=== PATIENT | female | born 1990 | race African-American/Black ===

== ENCOUNTER 2017-01-02 02:52 | Emergency (ER) | payer MEDICARE, BC, OTHER ==
[~2017-01-02] VITALS: Ht 165.1 cm; Wt 82.0 kg
[~2017-01-02 02:52] MED LIST: 1-ME1LIQ PO; ALPR.25 PO; CIPR500T4 PO; DICY10CA13 PO; FAMO20 PO; PERC10TA27 PO; PREG100 PO; PROC10TA4 PO; PROT40TA PO; TACR1CAP PO; WARF5TAB PO
[2017-01-02 02:54] VITALS: BP 170/120; PULSE 124; RESP 16; TEMP 98.4; O2SAT 100
[2017-01-02] MEDS ORDERED: TACR5CAP PO (07:34)
[2017-01-02] MEDS ORDERED: METHYL (07:34)
[2017-01-02] MEDS ORDERED: PERC10TA27 PO (07:34)
[2017-01-02] MEDS ORDERED: TACR1CAP PO (07:34)
[2017-01-02] MEDS ORDERED: LYRI100C PO (07:34)
[2017-01-02] MEDS ORDERED: WARF-22 PO (07:34)
--- NOTE | 2017-01-02 14:42 | EKG ---
Date Performed: 01/02/2017 Time Performed: 03:13:05 PTAGE: 26 years EKG: SINUS TACHYCARDIA NONSPECIFIC T-WAVE ABNORMALITY Clinical correlation is recommended ABNORM AL RHYTHM ECG NO PREVIOUS TRACING DOCTOR: Boyd Hill Interpretating Date/Time 01/02/2017 14:41:53
== END 2017-01-02 03:23 | disposition left against medical advice (07) ==
LOC: NED 02:52
DX: R68.89 Other general symptoms and signs (principal)
CPT/HCPCS: 93005; 99281

== ENCOUNTER 2017-01-02 06:21 | Emergency (ER) | payer BC, MEDICARE, OTHER ==
[~2017-01-02] VITALS: Ht 165.1 cm; Wt 84.0 kg
[2017-01-02 06:23] VITALS: BP 162/110; PULSE 162; RESP 16; TEMP 98.2; O2SAT 100
[2017-01-02 06:41] VITALS: BP 180/117; PULSE 138; RESP 22; O2SAT 100
[2017-01-02] MEDS ORDERED: PROCHLORPERAZINE INJ 10 MG/2 ML VIAL IV PUSH ONE (07:30)
[2017-01-02] MEDS ORDERED: SODIUM CHLORIDE 0.9% FLUSH 10 ML FLUSH IVF PRN (07:30)
[2017-01-02] MEDS ORDERED: diphenhydrAMINE HCL 50 MG/ML VIAL IV PUSH ONE (07:30)
[2017-01-02] MEDS ORDERED: SODIUM CHLORID 0.9% 500 ML INJ 500 ML IV ONE (07:30)
[2017-01-02] MEDS ORDERED: WARF-22 PO (07:34)
[2017-01-02] MEDS ORDERED: METHYL (07:34)
[2017-01-02] MEDS ORDERED: TACR1CAP PO (07:34)
[2017-01-02] MEDS ORDERED: PERC10TA27 PO (07:34)
[2017-01-02] MEDS ORDERED: LYRI100C PO (07:34)
[2017-01-02] MEDS ORDERED: TACR5CAP PO (07:34)
[2017-01-02 07:36] VITALS: O2SAT 97
--- NOTE | 2017-01-02 07:51 | RADRPT ---
EXAM DATE/TIME: 01/02/2017 07:38 [facility] COMPARISON: No previous studies available for comparison. INDICATIONS : Chest pain. MEDICAL HISTORY : None. SURGICAL HISTORY : Renal transplant. ENCOUNTER: Initial ACUITY: 1 day PAIN SCORE: 3/10 LOCATION: Bilateral chest FINDINGS: PA and lateral views of the chest demonstrate the lungs to be symmetrically aerated without evidence of mass, infiltrate or effusion. The cardiomediastinal contours are unremarkable. There is metallic density seen over the lower cervical spine which may be a artificial disc. There is also a vascular s tent seen in the left axillary region. CONCLUSION: No acute disease. Vinny Bush MD on January 02, 2017 at 7:48 Board Certified Radiologist. This report was verified electronically.
[2017-01-02 08:01] VITALS: BP 147/97; PULSE 120; RESP 18; O2SAT 97
--- NOTE | 2017-01-02 08:12 | PD ---
HPI Chief Complaint: Cardiac Complaint Time Seen by Provider: 07:08 Travel History International Travel<30 days: No Contact w/Intl Traveler<30days: No Traveled to known affect area: No History of Present Illness HPI Patient is a 26-year-old female with history of renal transplant, who comes in with multiple medical complaints. She says she has not been able to sleep in 3 days. She says she feels numbness to the left side of her head just lateral to her eye. She says she is not having a headache. She says she sees "O's" in front of her eyes. She also says she has some chest tightness and shortness of breath and says she feels her heart beating very fast. PFSH Past Medical History Anemia: Yes Asthma: Yes Blood Disorders: No Anxiety: Yes Depression: No Heart Rhythm Problems: Yes Cancer: No Cardiovascular Problems: Yes High Cholesterol: No Chemotherapy: No Chest Pain: Yes (ON AND OFF FOR A COUPLE MONTHS) Congestive Heart Failure: No COPD: No Diabetes: No Endocrine: Yes (GLOMERLONEPHRITIS) Gastrointestinal Disorders: Yes (IBS) Hypertension: Yes Immune Disorder: No Implanted Vascular Access Dvce: Yes Musculoskeletal: No Neurologic: No Psychiatric: Yes Reproductive: No Respiratory: Yes Radiation Therapy: No Sleep Apnea: No Thyroid Disease: Yes Tetanus Vaccination: Unknown ?: Not LMP: 12/30/16 Ovarian Cysts: Yes Past Surgical History Abdominal Surgery: Yes (PERITONEAL CATHETER PLACEMENT/REMOVAL) Body Medical Devices: USED TO HAVE A FISTULA Endocrine Surgery: Yes (KIDNEY TRANSPLANT X 2/PARATHYROIDECTOMY) Tonsillectomy: Yes Other Surgery: Yes (LYMPH NODE/LT ARM SHUNT REMOVAL) Social History Alcohol Use: No Tobacco Use: No Substance Use: No Allergies-Medications (Allergen,Severity, Reaction): Coded Allergies: Cozaar (Verified Allergy, Severe, Swelling, 01/02/17) Vancomycin (Verified Allergy, Severe, Anaphylaxis, 01/02/17) Vasotec (Verified Allergy, Severe, Swelling, 01/02/17) Reported Meds & Prescriptions Reported Meds & Active Scripts Active Reported Warfarin 10 Mg Tab 10 Mg PO DAILY Tacrolimus 1 Mg Cap 4 Mg PO AM Tacrolimus 5 Mg Cap 5 Mg PO HS Lyrica (Pregabalin) 100 Mg Cap 100 Mg PO BID Percocet (Oxycodone-Acetaminophen) 10-325 mg Tab 1 Tab PO Q4H PRN [Methyl 2] Review of Systems Except as stated in HPI: all other systems reviewed are Neg General / Constitutional: No: Fever, Chills Eyes: Positive: Blurred Vision Cardiovascular: Positive: Chest Pain or Discomfort, Tachycardia Respiratory: Positive: Shortness of Breath Gastrointestinal: No: Nausea, Vomiting Musculoskeletal: No: Myalgias, Edema Skin: No Rash, No Change in Pigmentation Neurologic: No: Weakness Psychiatric: Positive: Anxiety Physical Exam Narrative GENERAL: Awake and alert, in no acute distress. SKIN: Focused skin assessment warm/dry. HEAD: Atraumatic. Normocephalic. EYES: Pupils equal and round. No scleral icterus. Extraocular movements intact. Horizontal nystagmus seen. ENT: Mucous membranes pink and moist. NECK: Trachea midline. No JVD. CARDIOVASCULAR: Tachycardia. No murmur appreciated. RESPIRATORY: No accessory muscle use. Clear to auscultation. Breath sounds equal bilaterally. GASTROINTESTINAL: Abdomen soft, non-tender, nondistended. MUSCULOSKELETAL: No obvious deformities. No clubbing. No cyanosis. No edema. NEUROLOGICAL: Awake and alert. No obvious cranial nerve deficits. Motor grossly within normal limits. Normal speech. Area of numbness just lateral to the left eye, no other neurologic abnormalities. PSYCHIATRIC: Appropriate mood and affect; insight and judgment normal. Data Data Last Documented VS Vital Signs Date Time Temp Pulse Resp B/P Pulse Ox O2 Delivery O2 Flow Rate FiO2 01/02/17 10:17 118 18 138/86 97 Nasal Cannula 2 01/02/17 06:23 98.2 Orders Electrocardiogram (01/02/17 ) Complete Blood Count With Diff (01/02/17 07:24) Comprehensive Metabolic Panel (01/02/17 07:24) Magnesium (Mg) (01/02/17 07:24) Prothrombin Time / Inr (Pt) (01/02/17 07:24) Act Partial Throm Time (Ptt) (01/02/17 07:24) Troponin I (01/02/17 07:24) Ecg Monitoring (01/02/17 07:24) Bilateral Bp Monitoring (01/02/17 07:24) Iv Access Insert/Monitor (01/02/17 07:24) Oximetry (01/02/17 07:24) Oxygen Administration (01/02/17 07:24) Sodium Chloride 0.9% Flush (Ns Flush) (01/02/17 07:30) Chest, Pa & Lat (01/02/17 07:24) Ct Brain W/O Iv Contrast(Rout) (01/02/17 ) Ed Urine Pregnancytest Poc (01/02/17 07:24) Drug Screen, Random Urine (01/02/17 07:24) Urinalysis - C+S If Indicated (01/02/17 07:24) Sodium Chlorid 0.9% 500 Ml Inj (Ns 500 M (01/02/17 07:30) Prochlorperazine Inj (Compazine Inj) (01/02/17 07:30) Diphenhydramine Inj (Benadryl Inj) (01/02/17 07:30) Vascular Access Team Consult/P PRN (01/02/17 07:55) Vascular Poc Ultrasound (01/02/17 ) Vascular Access Team Consult/P PRN (01/02/17 10:09) Cyclobenzaprine (Flexeril) (01/02/17 10:45) Vascular Poc Ultrasound (01/02/17 ) Ventilation & Perfusion Scan (01/02/17 ) Labs Laboratory Tests Test 01/02/17 07:40 White Blood Count 5.6 TH/MM3 Red Blood Count 3.97 MIL/MM3 Hemoglobin 11.7 GM/DL Hematocrit 35.6 % Mean Corpuscular Volume 89.7 FL Mean Corpuscular Hemoglobin 29.6 PG Mean Corpuscular Hemoglobin 33.0 % Concent Red Cell Distribution Width 13.5 % Platelet Count 193 TH/MM3 Mean Platelet Volume 10.1 FL Neutrophils (%) (Auto) 71.2 % Lymphocytes (%) (Auto) 19.6 % Monocytes (%) (Auto) 8.1 % Eosinophils (%) (Auto) 0.5 % Basophils (%) (Auto) 0.6 % Neutrophils # (Auto) 4.0 TH/MM3 Lymphocytes # (Auto) 1.1 TH/MM3 Monocytes # (Auto) 0.4 TH/MM3 Eosinophils # (Auto) 0.0 TH/MM3 Basophils # (Auto) 0.0 TH/MM3 CBC Comment DIFF FINAL Differential Comment Prothrombin Time 16.5 SEC Prothromb Time International 1.5 RATIO Ratio Activated Partial 27.9 SEC Thromboplast Time Urine Color YELLOW Urine Turbidity HAZY Urine pH 6.0 Urine Specific [place] 1.017 Urine Protein 30 mg/dL Urine Glucose (UA) NEG mg/dL Urine Ketones 80 mg/dL Urine Occult Blood MOD Urine Nitrite NEG Urine Bilirubin NEG Urine Urobilinogen LESS THAN 2.0 MG/DL Urine Leukocyte Esterase NEG Urine RBC 1 /hpf Urine WBC 4 /hpf Urine Squamous Epithelial 15 /hpf Cells Urine Bacteria RARE /hpf Urine Mucus FEW /lpf Microscopic Urinalysis Comment CULT NOT INDICATED Sodium Level 140 MEQ/L Potassium Level 3.4 MEQ/L Chloride Level 105 MEQ/L Carbon Dioxide Level 21.8 MEQ/L Anion Gap 13 MEQ/L Blood Urea Nitrogen 9 MG/DL Creatinine 1.01 MG/DL Estimat Glomerular Filtration 80 ML/MIN Rate Random Glucose 125 MG/DL Calcium Level 8.4 MG/DL Magnesium Level 1.8 MG/DL Total Bilirubin 0.6 MG/DL Aspartate Amino Transf 25 U/L (AST/SGOT) Alanine Aminotransferase 14 U/L (ALT/SGPT) Alkaline Phosphatase 40 U/L Troponin I LESS THAN 0.02 NG/ML Total Protein 8.3 GM/DL Albumin 4.0 GM/DL Urine Opiates Screen NEG Urine Barbiturates Screen NEG Urine Amphetamines Screen NEG Urine Benzodiazepines Screen NEG Urine Cocaine Screen NEG Urine Cannabinoids Screen NEG MDM Medical Decision Making Medical Screen Exam Complete: Yes Emergency Medical Condition: Yes Medical Record Reviewed: Yes Interpretation(s) ECG shows sinus tachycardia 129, no ST elevation or depression, normal intervals. Differential Diagnosis Electrolyte abnormality versus ICH versus tension headache versus PE Narrative Course Patient is a 26-year-old female who comes in with multiple medical complaints. Exam shows small area of numbness, no other neurologic abnormalities. IV established and labs sent. Labs show no acute abnormalities. IV was placed by vascular access team. CTA attempted, however IV blew and contrast extravasated in her right arm. Vascular access team was consult again , but only could find a vein in her forearm. I spoke with the radiologist about using this pain for the CTA, however he says that we cannot do to protocols that the IV must be in the AC. Decision made to order a VQ scan. However at this time patient states she would like to go home. She says her symptoms have improved and she believes she is withdrawing from her opiate pain medication. She says she is trying to wean herself off of this medication. She is still tachycardic in the 1 teens. I explained to her that she could have a blood clot and she should have this testing done. However she does not want to stay. She is alert and oriented 4 and understands the risks of signing out AGAINST MEDICAL ADVICE including serious illness or . She elected to sign out AMA. AMA: The risks of leaving against medical advice without further evaluation treatment were discussed with the patient. These risks include cardiac dysfunction, cardiac dysrhythmia, possible heart attack, possible stroke or . The patient indicated understanding of these risks and appeared to have the capacity to make this decision. Diagnosis Primary Impression: Tachycardia Additional Impression: Headache Qualified Code: G44.209 - Acute non intractable tension-type headache Patient Instructions: Acute Headache (ED), General Instructions Additional Instructions: Follow up with your doctors. Return to the ED as needed for any worsening symptoms. Disposition: 07 AGAINST MEDICAL ADVICE Shakira Bravo MD Jan 02, 2017 08:12
[2017-01-02 08:23] LABS: BASOPHIL % 0.6 % (0.0-2.0); EOSINOPHIL % 0.5 % (0.0-4.0); HEMATOCRIT 35.6 % (35.0-46.0); HEMO FLAGS DIFF FINAL; LYMPH % 19.6 % (9.0-44.0); LYMPHOCYTE # 1.1 TH/MM3 (1.0-4.8); MEAN CELL VOLUME 89.7 FL (80.0-100.0); MEAN CORPUSCULAR HEMOGLOBIN 29.6 PG (27.0-34.0); MONO % 8.1 % (0.0-8.0); NEUT % 71.2 % (16.0-70.0); PLATELET COUNT 193 TH/MM3 (150-450); RED BLOOD COUNT 3.97 MIL/MM3 (4.00-5.30); RED CELL DISTRIBUTION WIDTH 13.5 % (11.6-17.2); WHITE BLOOD COUNT 5.6 TH/MM3 (4.0-11.0)
[2017-01-02 08:30] LABS: INTERNATIONAL NORMALIZED RATIO 1.5 RATIO; PROTHROMBIN TIME - PATIENT 16.5 SEC (9.8-11.6)
[2017-01-02 08:31] LABS: APTT (PATIENT) 27.9 SEC (24.3-30.1)
[2017-01-02 08:43] LABS: AMPHETAMINE, URINE NEG (NEG); BARBITURATES, URINE NEG (NEG); COCAINE, URINE NEG (NEG)
[2017-01-02 08:51] LABS: ALKALINE PHOSPHATASE 40 U/L (45-117); ALT (GPT) 14 U/L (10-53); TOTAL BILIRUBIN ADULT 0.6 MG/DL (0.2-1.0)
[2017-01-02 08:53] LABS: ANION GAP 13 MEQ/L (5-15); AST (GOT) 25 U/L (15-37); BICARBONATE 21.8 MEQ/L (21.0-32.0); BLOOD UREA NITROGEN 9 MG/DL (7-18); CHLORIDE 105 MEQ/L (98-107); GLOMERULAR FILTRATION RATE 80 ML/MIN (>89); MAGNESIUM 1.8 MG/DL (1.5-2.5); POTASSIUM 3.4 MEQ/L (3.5-5.1); SODIUM (NA) 140 MEQ/L (136-145)
--- NOTE | 2017-01-02 10:05 | RADRPT ---
EXAM DATE/TIME: 01/02/2017 09:19 [facility] COMPARISON: No previous studies available for comparison. INDICATIONS : Dizziness. RADIATION DOSE: 56.35 CTDIvol (mGy) MEDICAL HISTORY : Hypertension. SURGICAL HISTORY : Kidney transplant. ENCOUNTER: Initial ACUITY: 1 day PAIN SCALE: 0/10 LOCATION: cranial TECHNIQUE: Multiple contiguous axial images were obtained of the head. Using automated exposure control and adj ustment of the mA and/or kV according to patient size, radiation dose was kept as low as reasonably a chievable to obtain optimal diagnostic quality images. FINDINGS: CEREBRUM: The ventricles are normal for age. No evidence of midline shift, mass lesion, hemorrhage or acute in farction. No extra-axial fluid collections are seen. POSTERIOR FOSSA: The cerebellum and brainstem are intact. The 4th ventricle is midline. The cerebellopontine angle i s unremarkable. EXTRACRANIAL: The visualized portion of the orbits is intact. SKULL: The calvaria is intact. No evidence of skull fracture. CONCLUSION: Normal examination. Vinny Bush MD on January 02, 2017 at 10:03 Board Certified Radiologist. This report was verified electronically.
[2017-01-02 10:17] VITALS: BP 138/86; PULSE 118; RESP 18; O2SAT 97
[2017-01-02] MEDS ORDERED: CYCLOBENZAPRINE HCL 10 MG TAB PO ONE (10:45)
[2017-01-02 11:03] LABS: BACTERIA, URINE RARE /hpf; BLOOD, URINE MOD (NEG); GLUCOSE,URINE NEG (NEG); KETONE, URINE 80 mg/dL (NEG); MUCUS URINE FEW /lpf (OCC); NITRITE,URINE NEG (NEG); SQUAMOUS EPITHELIAL CELL URINE 15 /hpf (0-5); URINE COLOR YELLOW (YELLW/STRAW)
[2017-01-02 11:09] LABS: COMMENT (UR) CULT NOT INDICATED; CULTURE IF INDICATED CULT NOT INDICATED
--- NOTE | 2017-01-02 13:28 | EKG ---
Date Performed: 01/02/2017 Time Performed: 07:07:03 PTAGE: 26 years EKG: SINUS TACHYCARDIA MODERATE T-WAVE ABNORMALITY, CONSIDER ANTERIOR ISCHEMIA Compared to prior tracing no significant change ABNORMAL ECG NO PREVIOUS TRACING DOCTOR: Boyd Hill Interpretating Date/Time 01/02/2017 13:26:52
== END 2017-01-02 12:50 | disposition left against medical advice (07) ==
LOC: NEPE 06:21
DX: R00.0 Tachycardia, unspecified (principal); R51 Headache; R94.31 Abnormal electrocardiogram [ECG] [EKG]; I10 Essential (primary) hypertension; K58.9 Irritable bowel syndrome, unspecified
CPT/HCPCS: 70450; 71020; 80053; 80307; 81001; 83735; 84484; 84703; 85025; 85610; 85730; 93005; 96361; 96374; 96375; 99285; J0780; J1200; J7040

== ENCOUNTER 2017-02-18 11:43 | Emergency (ER) | payer BC, MEDICARE, OTHER ==
[~2017-02-18] VITALS: Ht 165.1 cm; Wt 90.0 kg
[~2017-02-18 11:43] MED LIST changes: -1-ME1LIQ PO; -ALPR.25 PO; -CIPR500T4 PO; -DICY10CA13 PO; -FAMO20 PO; +LYRI100C PO; +METHYL; -PREG100 PO; -PROC10TA4 PO; -PROT40TA PO; +TACR5CAP PO; +WARF-22 PO; -WARF5TAB PO
[2017-02-18 11:44] VITALS: BP 128/90; PULSE 124; RESP 20; TEMP 98.7; O2SAT 100
--- NOTE | 2017-02-18 11:48 | PD ---
Physical Exam Date Seen by Provider: Feb 18, 2017 Time Seen by Provider: 11:46 Data Data Last Documented VS Vital Signs Date Time Temp Pulse Resp B/P Pulse Ox O2 Delivery O2 Flow Rate FiO2 02/18/17 11:44 98.7 124 20 128/90 100 Room Air [facility] Supervised Visit with TITO: No Narrative Course 26 YO F with complaint of right lower abdominal pain, lower back pain, nausea, vomiting x 3 days. --fever. LMP 01/26 Vitals reviewed. Awaiting bed placement. Haylee Chan Feb 18, 2017 11:48
[2017-02-18] MEDS ORDERED: FAMO1TAB30 PO (13:16)
[2017-02-18] MEDS ORDERED: PRED1TAB72 SL (13:16)
[2017-02-18] MEDS ORDERED: AMLO5TAB2 PO (13:16)
[2017-02-18] MEDS ORDERED: ALPR.25 PO (13:16)
[2017-02-18] MEDS ORDERED: TACR1CAP PO (13:16)
[2017-02-18] MEDS ORDERED: SODIUM CHLOR 0.9% 1000 ML INJ 1,000 ML IV SCH (13:23)
[2017-02-18] MEDS ORDERED: MORPHINE SULFATE 4 MG/ML INJ IV PUSH ONE ×2 (13:30→15:00)
[2017-02-18] MEDS ORDERED: ONDANSETRON HCL 4 MG/2 ML VIAL IVP ONE (13:30)
--- NOTE | 2017-02-18 13:42 | PD ---
HPI Chief Complaint: Abdominal Pain Time Seen by Provider: 13:36 Travel History International Travel<30 days: No Contact w/Intl Traveler<30days: No Traveled to known affect area: No History of Present Illness HPI 26-year-old female that presents to the ED for evaluation of abdominal pain. Patient states that most the pain is on the right abdomen. Pain does not radiate. Per patient started on the back and moved to the front. She states that she has a history of renal transplant on the left. She has no kidney on the right. Per patient she is able to urinate. Per patient's take Percocet chronically. Per patient she's been nauseous and vomiting. She denies any chest pain or shortness of breath. She states that the pain is severe 10 out of 10. She has not seen anybody for this. Her transplant doctor is at [place]. Takes coumadin and immunosuppresants. No numbness, tingling, weakness. No falls. no injuries. No urinary or BM issues. Chronically takes percocet. PFSH Past Medical History Anemia: Yes Asthma: Yes Blood Disorders: No Anxiety: Yes Depression: No Heart Rhythm Problems: Yes Cancer: No Cardiovascular Problems: Yes High Cholesterol: No Chemotherapy: No Chest Pain: Yes (ON AND OFF FOR A COUPLE MONTHS) Congestive Heart Failure: No COPD: No Diabetes: No Endocrine: Yes (GLOMERLONEPHRITIS) Gastrointestinal Disorders: Yes (IBS) Hypertension: Yes Immune Disorder: No Implanted Vascular Access Dvce: Yes Musculoskeletal: No Neurologic: No Psychiatric: Yes Reproductive: No Respiratory: Yes Radiation Therapy: No Sleep Apnea: No Thyroid Disease: Yes ?: Not LMP: JAN 31 2017 Ovarian Cysts: Yes Past Surgical History Abdominal Surgery: Yes (PERITONEAL CATHETER PLACEMENT/REMOVAL) Body Medical Devices: USED TO HAVE A FISTULA Endocrine Surgery: Yes (KIDNEY TRANSPLANT X 2/PARATHYROIDECTOMY) Tonsillectomy: Yes Other Surgery: Yes (LYMPH NODE/LT ARM SHUNT REMOVAL) Social History Alcohol Use: No Tobacco Use: No Substance Use: No Allergies-Medications (Allergen,Severity, Reaction): Coded Allergies: Cozaar (Verified Allergy, Severe, Swelling, 01/02/17) Vancomycin (Verified Allergy, Severe, Anaphylaxis, 01/02/17) Vasotec (Verified Allergy, Severe, Swelling, 01/02/17) Reported Meds & Prescriptions Reported Meds & Active Scripts Active Zofran (Ondansetron HCl) 4 Mg Tab 4 Mg PO Q6HR PRN Tylenol-Codeine #3 (Acetaminophen-Codeine) 300-30 mg Tab 1 Tab PO Q6H PRN Reported Xanax (Alprazolam) 0.25 Mg Tab 0.25 Mg PO Q4H PRN Prednisolone Odt 10 Mg Tab 5 Mg SL DAILY Amlodipine (Amlodipine Besylate) 5 Mg Tab 5 Mg PO DAILY Famotidine 10 Mg Tab 10 Mg PO BID Tacrolimus 1 Mg Cap 8 Mg PO DAILY Warfarin 10 Mg Tab 10 Mg PO DAILY Lyrica (Pregabalin) 100 Mg Cap 100 Mg PO BID Percocet (Oxycodone-Acetaminophen) 10-325 mg Tab 1 Tab PO Q4H PRN [Methyl 2] Review of Systems Except as stated in HPI: all other systems reviewed are Neg Physical Exam Narrative GENERAL: SKIN: Warm and dry. HEAD: Atraumatic. Normocephalic. EYES: Pupils equal and round. No scleral icterus. No injection or drainage. ENT: No nasal bleeding or discharge. Mucous membranes pink and moist. Tongue is midline, no uvula deviation. NECK: Trachea midline. No JVD. CARDIOVASCULAR: Regular rate and rhythm. No murmurs, S3, S4. RESPIRATORY: No accessory muscle use. Clear to auscultation. Breath sounds equal bilaterally. GASTROINTESTINAL: Abdomen soft, very tender to palpation especially in the right abdomen, nondistended. Hepatic and splenic margins not palpable. MUSCULOSKELETAL: Extremities without clubbing, cyanosis, or edema. No obvious deformities. Full range of motion of the upper and lower extremities bilaterally. 2+ pulses bilaterally. NEUROLOGICAL: Awake and alert. No obvious cranial nerve deficits. Motor grossly within normal limits. Five out of 5 muscle strength in the arms and legs. Normal speech. PSYCHIATRIC: Appropriate mood and affect; insight and judgment normal. Data Data Last Documented VS Vital Signs Date Time Temp Pulse Resp B/P Pulse Ox O2 Delivery O2 Flow Rate FiO2 02/18/17 15:00 99 18 128/98 99 Room Air 02/18/17 13:53 2 02/18/17 11:44 98.7 Orders Electrocardiogram (02/18/17 13:23) Complete Blood Count With Diff (02/18/17 13:23) Comprehensive Metabolic Panel (02/18/17 13:23) Prothrombin Time / Inr (Pt) (02/18/17 13:23) Act Partial Throm Time (Ptt) (02/18/17 13:23) Blood Culture (02/18/17 13:23) Lipase (02/18/17 13:23) Urinalysis - C+S If Indicated (02/18/17 13:23) Thyroid Stimulating Hormone (02/18/17 13:23) Chest, Single Ap (02/18/17 13:23) Iv Access Insert/Monitor (02/18/17 13:23) Ecg Monitoring (02/18/17 13:23) Oximetry (02/18/17 13:23) Ed Urine Pregnancytest Poc (02/18/17 13:23) Ct Abd/Pel W/O Iv Contrast (02/18/17 ) Lactic Acid (02/18/17 13:23) Morphine Inj (Morphine Inj) (02/18/17 13:30) Ondansetron Inj (Zofran Inj) (02/18/17 13:30) Sodium Chlor 0.9% 1000 Ml Inj (Ns 1000 M (02/18/17 13:23) Morphine Inj (Morphine Inj) (02/18/17 15:00) Calcium Gluconate Inj (Calcium Gluconate (02/18/17 15:15) Labs Laboratory Tests Test 02/18/17 02/18/17 13:40 15:29 White Blood Count 4.9 TH/MM3 Red Blood Count 4.13 MIL/MM3 Hemoglobin 12.8 GM/DL Hematocrit 37.8 % Mean Corpuscular Volume 91.5 FL Mean Corpuscular Hemoglobin 31.1 PG Mean Corpuscular Hemoglobin 34.0 % Concent Red Cell Distribution Width 14.1 % Platelet Count 266 TH/MM3 Mean Platelet Volume 9.0 FL Neutrophils (%) (Auto) 58.8 % Lymphocytes (%) (Auto) 29.6 % Monocytes (%) (Auto) 6.9 % Eosinophils (%) (Auto) 4.1 % Basophils (%) (Auto) 0.6 % Neutrophils # (Auto) 2.9 TH/MM3 Lymphocytes # (Auto) 1.4 TH/MM3 Monocytes # (Auto) 0.3 TH/MM3 Eosinophils # (Auto) 0.2 TH/MM3 Basophils # (Auto) 0.0 TH/MM3 CBC Comment DIFF FINAL Differential Comment Prothrombin Time 13.1 SEC Prothromb Time International 1.2 RATIO Ratio Activated Partial 29.9 SEC Thromboplast Time Sodium Level 136 MEQ/L Potassium Level 4.4 MEQ/L Chloride Level 104 MEQ/L Carbon Dioxide Level 27.2 MEQ/L Anion Gap 5 MEQ/L Blood Urea Nitrogen 13 MG/DL Creatinine 0.95 MG/DL Estimat Glomerular Filtration 86 ML/MIN Rate Random Glucose 118 MG/DL Lactic Acid Level 0.9 mmol/L Calcium Level 7.3 MG/DL Protein Corrected Calcium 6.9 MG/DL Total Bilirubin 0.4 MG/DL Aspartate Amino Transf 22 U/L (AST/SGOT) Alanine Aminotransferase 15 U/L (ALT/SGPT) Alkaline Phosphatase 59 U/L Total Protein 8.2 GM/DL Albumin 3.8 GM/DL Lipase 108 U/L Thyroid Stimulating Hormone 0.934 uIU/ML 3rd Gen Urine Color DARK-YELLOW Urine Turbidity HAZY Urine pH 5.5 Urine Specific [place] 1.031 Urine Protein 100 mg/dL Urine Glucose (UA) NEG mg/dL Urine Ketones TRACE mg/dL Urine Occult Blood NEG Urine Nitrite NEG Urine Bilirubin NEG Urine Urobilinogen 2.0 MG/DL Urine Leukocyte Esterase NEG Urine WBC 3 /hpf Urine Squamous Epithelial 25 /hpf Cells Urine Hyaline Casts 2 /lpf Urine Granular Casts 21 /lpf Urine Mucus MANY /lpf Microscopic Urinalysis Comment CULT NOT INDICATED MDM Medical Decision Making Medical Screen Exam Complete: Yes Emergency Medical Condition: Yes Medical Record Reviewed: Yes Interpretation(s) CBC & BMP Diagram 02/18/17 13:40 LFTS WNL lipase WNL TSH WNL lactic acid WNL CAlciul low at 6.8 corrected. Last Impressions Chest X-Ray 02/18/17 1323 Signed Impressions: Service Date/Time: Saturday, February 18, 2017 13:54 - CONCLUSION: No acute disease. Abe Brody MD FACR Differential Diagnosis UTI versus severe abdomen versus abdominal pain versus chronic abdominal pain versus appendicitis versus acute abdomen versus pyelonephritis versus kidney stone Narrative Course 26 yo patient comes here for abdominal pain. Complicated medical history. Labs and imaging ordered. My attending Dr Rubalcava recommends against IV contrast secondary to kidney transplant patient. Therefore CT without contrast ordered. Labs and imaging only positive for hypocalcemia. I had my attending evaluate the patient with me and he recommends follow up outpatient. She did mention to him and me that she ran out of her pain meds two days ago. Likely this is withdrawal. My attending offered her tylenol with codeine to help with pain and zofran for her nausea. She was told to take tums twice a day to help increase her calcium. She was given calcium here IV. Follow up strongly encouraged. See ED if worsening symptoms. Diagnosis Primary Impression: Abdominal pain Qualified Code: R10.84 - Generalized abdominal pain Additional Impression: Hypocalcemia Patient Instructions: General Instructions Additional Instructions: Take medications as prescribed. Follow-up with PCP. See ED for any worsening symptoms. Do not drink or drive while taking pain medication. Apply ice or heat as needed for pain Your calcium was low today please take two tums a day every day to help correct this. See ED if worst. Med/Other Pt SpecificInfo: Prescription(s) given Scripts Ondansetron (Zofran)4 Mg Tab4 Mg PO Q6HR PRN (NAUSEA OR VOMITING) #20 TAB Ref 0 Prov:Deni Rubalcava MD 02/18/17 Acetaminophen-Codeine (Tylenol-Codeine #3)300-30 mg Tab1 Tab PO Q6H PRN (PAIN) # 20 TAB Ref 0 Prov:Deni Rubalcava MD 02/18/17 Disposition: 01 DISCHARGE HOME Condition: Jigar Hernandez Feb 18, 2017 13:42
[2017-02-18 13:45] VITALS: BP 137/90; PULSE 109; RESP 18; O2SAT 97
[2017-02-18 13:53] VITALS: O2SAT 97
--- NOTE | 2017-02-18 14:32 | RADRPT ---
EXAM DATE/TIME: 02/18/2017 13:54 [facility] COMPARISON: No previous studies available for comparison. INDICATIONS : Fever, abdominal apin MEDICAL HISTORY : Irritable bowel syndrome. Liver disorders, Asthma, Median nerve damage, Kidney removal, left si de paralysis SURGICAL HISTORY : Abdomial shunts, cervical fusion, parathyroid surgery ENCOUNTER: Initial ACUITY: 2 days PAIN SCORE: 8/10 LOCATION: Bilateral chest FINDINGS: A single view of the chest demonstrates the lungs to be symmetrically aerated without evidence of mas s, infiltrate or effusion. The cardiomediastinal contours are unremarkable. Vascular shunt is prese nt on the left that looks partially collapsed. Osseous structures are intact. CONCLUSION: No acute disease. Abe Brody MD FACR on February 18, 2017 at 14:28 Board Certified Radiologist. This report was verified electronically.
[2017-02-18 14:36] LABS: AUTOMATED NEUTROPHIL # 2.9 TH/MM3 (1.8-7.7); BASOPHIL % 0.6 % (0.0-2.0); EOSINOPHIL # 0.2 TH/MM3 (0-0.4); EOSINOPHIL % 4.1 % (0.0-4.0); HEMATOCRIT 37.8 % (35.0-46.0); HEMO FLAGS DIFF FINAL; LYMPH % 29.6 % (9.0-44.0); LYMPHOCYTE # 1.4 TH/MM3 (1.0-4.8); MEAN CELL VOLUME 91.5 FL (80.0-100.0); MEAN CORPUSCULAR HEMOGLOBIN 31.1 PG (27.0-34.0); MONO % 6.9 % (0.0-8.0); NEUT % 58.8 % (16.0-70.0); PLATELET COUNT 266 TH/MM3 (150-450); RED BLOOD COUNT 4.13 MIL/MM3 (4.00-5.30); RED CELL DISTRIBUTION WIDTH 14.1 % (11.6-17.2); WHITE BLOOD COUNT 4.9 TH/MM3 (4.0-11.0)
[2017-02-18 14:45] LABS: APTT (PATIENT) 29.9 SEC (24.3-30.1); INTERNATIONAL NORMALIZED RATIO 1.2 RATIO; PROTHROMBIN TIME - PATIENT 13.1 SEC (9.8-11.6)
[2017-02-18 15:00] VITALS: BP 128/98; PULSE 99; RESP 18; O2SAT 99
[2017-02-18 15:05] LABS: BICARBONATE 27.2 MEQ/L (21.0-32.0); TOTAL BILIRUBIN ADULT 0.4 MG/DL (0.2-1.0)
[2017-02-18 15:07] LABS: POTASSIUM 4.4 MEQ/L (3.5-5.1)
[2017-02-18 15:11] LABS: CALCIUM-PROTEIN CORRECTED 6.9 MG/DL (8.5-10.1)
[2017-02-18] MEDS ORDERED: CALCIUM GLUCONATE INJ 1 GM in DEXTROSE 5% IN WATER 100ML INJ 100 ML IV ONE ×2 (15:15)
[2017-02-18 16:21] LABS: BLOOD, URINE NEG (NEG); COMMENT (UR) CULT NOT INDICATED; CULTURE IF INDICATED CULT NOT INDICATED; GLUCOSE,URINE NEG (NEG); GRANULAR CAST, URINE 21 /lpf; HYALINE CAST, URINE 2 /lpf (RARE); KETONE, URINE TRACE mg/dL (NEG); MUCUS URINE MANY /lpf (OCC); NITRITE,URINE NEG (NEG); PH, URINE 5.5 (5.0-8.5); SQUAMOUS EPITHELIAL CELL URINE 25 /hpf (0-5); URINE COLOR DARK-YELLOW (YELLW/STRAW)
--- NOTE | 2017-02-18 16:43 | RADRPT ---
EXAM DATE/TIME: 02/18/2017 15:57 [facility] COMPARISON: No previous studies available for comparison. INDICATIONS : Right lower abdominal pain. irritable bowel. ORAL CONTRAST: No oral contrast ingested. RADIATION DOSE: 11.69 CTDIvol (mGy) MEDICAL HISTORY : Cardiovascular disease. Hypertension. Ovarian cyst. Glomerulonephritis. Kidney transplant. SURGICAL HISTORY : None. ENCOUNTER: Initial ACUITY: 2 days PAIN SCALE: 6/10 LOCATION: Right lower quadrant abdominal TECHNIQUE: Volumetric scanning of the abdomen and pelvis was performed. Using automated exposure control and ad justment of the mA and/or kV according to patient size, radiation dose was kept as low as reasonably achievable to obtain optimal diagnostic quality images. FINDINGS: Lung bases are clear. There is a poorly circumscribed low density lesion in the dome of the liver th at is incompletely evaluated on this examination without contrast. Spleen, pancreas and adrenal glan ds are unremarkable. Kidneys are small and shrunken. Renal transplant is seen in the left mid abdomen. There is no stone or hydronephrosis in transplant. A prominent uterine fibroid is noted. Review of bone windows reveals only degenerative changes. CONCLUSION: 1. Renal transplant. 2. Focal mass in the hilum of the liver incompletely evaluated on today's examination because of lac k of intravenous and oral contrast. 3. I have no prior studies for a comparison. Abe Brody MD FACR on February 18, 2017 at 16:35 Board Certified Radiologist. This report was verified electronically.
[2017-02-18] MEDS ORDERED: ZOFR4TAB PO (17:01)
[2017-02-18] MEDS ORDERED: TYLETAB34 PO (17:01)
--- NOTE | 2017-02-20 10:11 | EKG ---
Date Performed: 02/18/2017 Time Performed: 14:04:45 PTAGE: 26 years EKG: Sinus rhythm NORMAL ECG PREVIOUS TRACING : 01/02/2017 07.07 DOCTOR: Marc Holcomb Interpretating Date/Time 02/20/2017 09:54:30
== END 2017-02-18 17:20 | disposition home or self-care (01) ==
LOC: NEPD 11:43
DX: R10.84 Generalized abdominal pain (principal); E83.51 Hypocalcemia; I10 Essential (primary) hypertension; Z94.0 Kidney transplant status
CPT/HCPCS: 71010; 74176; 80053; 81001; 83605; 83690; 84443; 84703; 85025; 85610; 85730; 87040; 93005; 96361; 96374; 96375; 96376; 99285; J0610; J2270; J2405; J7030

== ENCOUNTER 2017-02-20 15:32 | Emergency (ER) | payer BC, MEDICARE, OTHER ==
[~2017-02-20] VITALS: Ht 165.1 cm; Wt 90.0 kg
[~2017-02-20 15:32] MED LIST changes: +ALPR.25 PO; +AMLO5TAB2 PO; +FAMO1TAB30 PO; +PRED1TAB72 SL; -TACR5CAP PO; +TYLETAB34 PO; +ZOFR4TAB PO
[2017-02-20 15:33] VITALS: BP 170/128; PULSE 108; TEMP 98.4; O2SAT 98
[2017-02-20 16:42] VITALS: BP 131/99; PULSE 104; RESP 18; O2SAT 97
--- NOTE | 2017-02-20 16:43 | PD ---
HPI Chief Complaint: Line Ordering Clinician Problem/Complaint Time Seen by Provider: 16:38 Travel History International Travel<30 days: No Contact w/Intl Traveler<30days: No Traveled to known affect area: No History of Present Illness HPI 26-year-old female returns back to emergency department with complaint of lower abdominal pain 2 days. She is also complaining of left lateral neck pain that she woke up with 2 days ago also. Denies injury. Has history of herniated disc surgery in 2011. She was seen 2 days ago for lower abdominal pain here at [place]. 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 She currently takes warfarin for history of pulmonary embolisms. She reports being taken off warfarin for a short amount of time and given vitamin K because of the procedure that she had to have and currently was just put back onto it. Denies vaginal discharge, odor, itch, lesions. Reports burning on urination, urgency, frequency, and hesitancy. Denies hematuria. Last menstrual period was January 26 and denies risk of . Denies IV drug use or cancer. Reports vomiting one time this morning after taking oxycodone for pain. Reports numbness and tingling in her left arm and has history of median nerve damage. She denies fever. Reports nausea without continued vomiting. Also reports history of hemorrhagic ovarian cyst. Reports history of anxiety, GERD, asthma, hypertension. Has no other medical complaints. No other modifying factors or associated signs and symptoms. PFSH Past Medical History Anemia: Yes Asthma: Yes Blood Disorders: No Anxiety: Yes Depression: No Heart Rhythm Problems: Yes Cancer: No Cardiovascular Problems: Yes High Cholesterol: No Chemotherapy: No Chest Pain: Yes (ON AND OFF FOR A COUPLE MONTHS) Congestive Heart Failure: No COPD: No Diabetes: No Endocrine: Yes (GLOMERLONEPHRITIS) Gastrointestinal Disorders: Yes (IBS) Hypertension: Yes Immune Disorder: No Implanted Vascular Access Dvce: Yes Musculoskeletal: No Neurologic: No Psychiatric: Yes Reproductive: No Respiratory: Yes Radiation Therapy: No Sleep Apnea: No Thyroid Disease: Yes ?: Not Ovarian Cysts: Yes Past Surgical History Abdominal Surgery: Yes (PERITONEAL CATHETER PLACEMENT/REMOVAL) Body Medical Devices: USED TO HAVE A FISTULA Endocrine Surgery: Yes (KIDNEY TRANSPLANT X 2/PARATHYROIDECTOMY) Tonsillectomy: Yes Other Surgery: Yes (LYMPH NODE/LT ARM SHUNT REMOVAL) Social History Alcohol Use: No Tobacco Use: No Substance Use: No Allergies-Medications (Allergen,Severity, Reaction): Coded Allergies: Cozaar (Verified Allergy, Severe, Swelling, 01/02/17) Vancomycin (Verified Allergy, Severe, Anaphylaxis, 01/02/17) Vasotec (Verified Allergy, Severe, Swelling, 01/02/17) Reported Meds & Prescriptions Reported Meds & Active Scripts Active Percocet (Oxycodone-Acetaminophen) 5-325 mg Tab 1-2 Tab PO Q6H PRN Zofran (Ondansetron HCl) 4 Mg Tab 4 Mg PO Q6HR PRN Tylenol-Codeine #3 (Acetaminophen-Codeine) 300-30 mg Tab 1 Tab PO Q6H PRN Reported Xanax (Alprazolam) 0.25 Mg Tab 0.25 Mg PO Q4H PRN Prednisolone Odt 10 Mg Tab 5 Mg SL DAILY Amlodipine (Amlodipine Besylate) 5 Mg Tab 5 Mg PO DAILY Famotidine 10 Mg Tab 10 Mg PO BID Tacrolimus 1 Mg Cap 8 Mg PO DAILY Warfarin 10 Mg Tab 10 Mg PO DAILY Lyrica (Pregabalin) 100 Mg Cap 100 Mg PO BID Percocet (Oxycodone-Acetaminophen) 10-325 mg Tab 1 Tab PO Q4H PRN [Methyl 2] Review of Systems Except as stated in HPI: all other systems reviewed are Neg Physical Exam Narrative GENERAL: Well-nourished, well-developed female patient, in no acute distress; afebrile; nontoxic appearing SKIN: Warm and dry. HEAD: Atraumatic. Normocephalic. EYES: Pupils equal and round. No scleral icterus. No injection or drainage. ENT: Mucosa pink and moist. Airway patent. NECK: Trachea midline. CARDIOVASCULAR: Regular rate and rhythm. No murmur appreciated. RESPIRATORY: No accessory muscle use. Clear to auscultation. Breath sounds equal bilaterally. GASTROINTESTINAL: Abdomen soft, tenderness on palpation to suprapubic region, nondistended. Hepatic and splenic margins not palpable. Bowel sounds are active 4 quadrants. Nonrigid. No guarding. PELVIC: Exam done in the presence of a nurse. Speculum exam reveals nonedematous and nonerythematous cervix with thick white , mucopurulent, nonodorous discharge. Bimanual exam reveals no palpable masses or adnexa tenderness, no uterine tenderness. Negative cervical motion tenderness. MUSCULOSKELETAL: No obvious deformities. No clubbing. No cyanosis. No edema. NEUROLOGICAL: Awake and alert. Oriented 3. No obvious cranial nerve deficits. Motor grossly within normal limits. Normal speech. PSYCHIATRIC: Appropriate mood and affect; insight and judgment normal. Data Data Last Documented VS Vital Signs Date Time Temp Pulse Resp B/P Pulse Ox O2 Delivery O2 Flow Rate FiO2 02/20/17 16:42 104 18 131/99 97 Room Air 02/20/17 15:33 98.4 Orders Morphine Inj (Morphine Inj) (02/20/17 16:45) Gc And Chlamydia Pcr (02/20/17 16:43) Wet Prep Profile (02/20/17 16:43) Urinalysis - C+S If Indicated (02/20/17 16:43) Orphenadrine Inj (Norflex Inj) (02/20/17 17:00) Ondansetron Inj (Zofran Inj) (02/20/17 17:00) Complete Blood Count With Diff (02/20/17 17:43) Comprehensive Metabolic Panel (02/20/17 17:43) Prothrombin Time / Inr (Pt) (02/20/17 17:43) Act Partial Throm Time (Ptt) (02/20/17 17:43) Azithromycin Powd Pack (Zithromax Powd P (02/20/17 18:30) Ceftriaxone Inj (Rocephin Inj) (02/20/17 18:30) Lidocaine 1% Inj (50 Ml) (Xylocaine 1% I (02/20/17 18:30) Us Pelvis Comp W Dop Transvag (02/20/17 ) Morphine Inj (Morphine Inj) (02/20/17 19:00) Labs Laboratory Tests Test 02/20/17 02/20/17 02/20/17 17:40 18:05 18:19 Clue Cells (Wet Prep) NONE SEEN Vaginal Trichomonas (Wet Prep) NONE SEEN Vaginal Yeast (Wet Prep) NONE SEEN Urine Color YELLOW Urine Turbidity HAZY Urine pH 5.0 Urine Specific [place] 1.014 Urine Protein NEG mg/dL Urine Glucose (UA) NEG mg/dL Urine Ketones NEG mg/dL Urine Occult Blood NEG Urine Nitrite NEG Urine Bilirubin NEG Urine Urobilinogen LESS THAN 2.0 MG/DL Urine Leukocyte Esterase NEG Urine RBC LESS THAN 1 /hpf Urine WBC LESS THAN 1 /hpf Urine Squamous Epithelial 3 /hpf Cells Microscopic Urinalysis Comment CULT NOT INDICATED White Blood Count 4.3 TH/MM3 Red Blood Count 4.15 MIL/MM3 Hemoglobin 12.4 GM/DL Hematocrit 38.1 % Mean Corpuscular Volume 91.6 FL Mean Corpuscular Hemoglobin 29.9 PG Mean Corpuscular Hemoglobin 32.6 % Concent Red Cell Distribution Width 13.7 % Platelet Count 250 TH/MM3 Mean Platelet Volume 9.1 FL Neutrophils (%) (Auto) 59.6 % Lymphocytes (%) (Auto) 26.0 % Monocytes (%) (Auto) 7.1 % Eosinophils (%) (Auto) 6.8 % Basophils (%) (Auto) 0.5 % Neutrophils # (Auto) 2.5 TH/MM3 Lymphocytes # (Auto) 1.1 TH/MM3 Monocytes # (Auto) 0.3 TH/MM3 Eosinophils # (Auto) 0.3 TH/MM3 Basophils # (Auto) 0.0 TH/MM3 CBC Comment DIFF FINAL Differential Comment Sodium Level 135 MEQ/L Potassium Level 3.9 MEQ/L Chloride Level 102 MEQ/L Carbon Dioxide Level 25.5 MEQ/L Anion Gap 8 MEQ/L Blood Urea Nitrogen 17 MG/DL Creatinine 1.03 MG/DL Estimat Glomerular Filtration 78 ML/MIN Rate Random Glucose 85 MG/DL Calcium Level 7.5 MG/DL Total Bilirubin 0.4 MG/DL Aspartate Amino Transf 18 U/L (AST/SGOT) Alanine Aminotransferase 15 U/L (ALT/SGPT) Alkaline Phosphatase 65 U/L Total Protein 8.7 GM/DL Albumin 3.9 GM/DL [facility] Medical Decision Making Medical Screen Exam Complete: Yes Emergency Medical Condition: Yes Medical Record Reviewed: Yes Differential Diagnosis Pyelonephritis, UTI, vaginal yeast, blood clot, ovarian cyst, uterine fibroids Narrative Course This is a 26-year-old female with history of glomerular nephritis and kidney transplant complaining of continued lower abdominal pain. She also reports history of hemorrhagic ovarian cyst. She was seen 2 days ago on February 18 for the same complaint and CT of the abdomen was unremarkable, UPT negative, CBC unremarkable, CMP with GFR 86, calcium 7.3, protein corrected calcium 6.9, INR 1.2, and urinalysis negative for infection. Dr. Adan recommended repeat urinalysis, pelvic ultrasound, and pelvic exam with wet prep, chlamydia, gonorrhea. Orders entered. 174: CBC, CMP, coags ordered. 1812: Negative vaginal yeast, trichomoniasis, clue cells. Patient empirically treated with azithromycin and Rocephin. 184: CBC unremarkable. Urinalysis without signs of infection. 185: BMP unremarkable. Pelvic ultrasound concluded: Last 24 hours Impressions Abdomen/Pelvis/Transvag US 02/20/17 0000 Signed Impressions: Service Date/Time: Monday, February 20, 2017 17:42 - CONCLUSION: No evidence of torsion. 26 mm benign-appearing cyst of the left ovary, could be rechecked in 8-12 weeks with pelvic ultrasound if felt clinically indicated. Vinny Burns MD A copy of the ultrasound was given to the patient and instructed patient to follow-up in 8-12 weeks for repeat pelvic ultrasound. Dr. Mar spoke with the patient and the patient feels comfortable going home. Patient will be discharged with a prescription for Percocet. Patient has a prescription for Zofran from her February 18 visit. Patient verbalizes understanding and agreement with treatment plan. Patient is medically cleared and stable for discharge. Discussed reasons to return to the emergency department. Instructed patient to follow up with primary care provider. Patient agrees with treatment plan. The patients vital signs are stable and the patient is stable for outpatient follow- up and treatment. Patient discharged home, stable and in no acute distress. Diagnosis Primary Impression: Abdominal pain Qualified Code: R10.9 - Abdominal pain, unspecified location Additional Impression: Left ovarian cyst Referrals: Primary Care Physician Patient Instructions: Abdominal Pain (ED), General Instructions, Ovarian Cyst ( ED) Additional Instructions: Continue medications as prescribed and as needed for nausea/vomiting Continue pain medications as prescribed Follow-up with primary care provider Follow-up with gynecology Follow-up with donor services technician Return to the emergency department immediately with worsening of symptoms Med/Other Pt SpecificInfo: Prescription(s) given Scripts Oxycodone-Acetaminophen (Percocet)5-325 mg Tab1-2 Tab PO Q6H PRN (PAIN) #20 TAB Ref 0 Prov:Herb Mar MD 02/20/17 Disposition: 01 DISCHARGE HOME Condition: Stable (ERASED) Alexandria Cardenas Feb 20, 2017 16:43
[2017-02-20] MEDS ORDERED: MORPHINE SULFATE 4 MG/ML INJ IV PUSH ONE ×2 (16:45→19:00)
[2017-02-20] MEDS ORDERED: ONDANSETRON HCL 4 MG/2 ML VIAL IV PUSH ONE (17:00)
[2017-02-20] MEDS ORDERED: ORPHENADRINE INJ 60 MG/2 ML AMP IM ONE (17:00)
[2017-02-20 18:24] LABS: AUTOMATED NEUTROPHIL # 2.5 TH/MM3 (1.8-7.7); BASOPHIL % 0.5 % (0.0-2.0); EOSINOPHIL # 0.3 TH/MM3 (0-0.4); EOSINOPHIL % 6.8 % (0.0-4.0); HEMATOCRIT 38.1 % (35.0-46.0); HEMO FLAGS DIFF FINAL; LYMPHOCYTE # 1.1 TH/MM3 (1.0-4.8); MEAN CELL VOLUME 91.6 FL (80.0-100.0); MEAN CORPUSCULAR HEMOGLOBIN 29.9 PG (27.0-34.0); MEAN CORPUSCULAR HGB CONC 32.6 % (32.0-36.0); MONO % 7.1 % (0.0-8.0); NEUT % 59.6 % (16.0-70.0); PLATELET COUNT 250 TH/MM3 (150-450); RED BLOOD COUNT 4.15 MIL/MM3 (4.00-5.30); RED CELL DISTRIBUTION WIDTH 13.7 % (11.6-17.2); WHITE BLOOD COUNT 4.3 TH/MM3 (4.0-11.0)
[2017-02-20] MEDS ORDERED: AZITHROMYCIN PWD FOR SUSP 1 GM PACKET PO ONE (18:30)
[2017-02-20] MEDS ORDERED: cefTRIAXone 250 MG VIAL IM ONE (18:30)
[2017-02-20] MEDS ORDERED: LIDOCAINE HCL 1% 50 ML VIAL IM ONE (18:30)
[2017-02-20 18:36] LABS: BLOOD, URINE NEG (NEG); COMMENT (UR) CULT NOT INDICATED; CULTURE IF INDICATED CULT NOT INDICATED; GLUCOSE,URINE NEG (NEG); KETONE, URINE NEG (NEG); NITRITE,URINE NEG (NEG); SQUAMOUS EPITHELIAL CELL URINE 3 /hpf (0-5); URINE COLOR YELLOW (YELLW/STRAW)
[2017-02-20 18:41] LABS: ANION GAP 8 MEQ/L (5-15); AST (GOT) 18 U/L (15-37); BICARBONATE 25.5 MEQ/L (21.0-32.0); BLOOD UREA NITROGEN 17 MG/DL (7-18); CHLORIDE 102 MEQ/L (98-107); GLOMERULAR FILTRATION RATE 78 ML/MIN (>89); POTASSIUM 3.9 MEQ/L (3.5-5.1); SODIUM (NA) 135 MEQ/L (136-145)
[2017-02-20 18:42] LABS: ALT (GPT) 15 U/L (10-53)
[2017-02-20 18:44] LABS: ALKALINE PHOSPHATASE 65 U/L (45-117); TOTAL BILIRUBIN ADULT 0.4 MG/DL (0.2-1.0)
--- NOTE | 2017-02-20 18:44 | RADRPT ---
EXAM DATE/TIME: 02/20/2017 17:42 [place] COMPARISON: CT ABDOMEN & PELVIS W/O CONTRAST, February 18, 2017, 15:57. INDICATIONS : Pelvic pain. MEDICAL HISTORY : Gastroesophageal reflux disease. Hypertension. Thyroid disease. Irregular heartbeat. Asthma. Pneumo constance. IBS. Ovarian cysts. Renal failure. History of dialysis. Glomerulonephritis. Anxiety. Anemia. Blo od transfusion. Pulmonary embolism. Anticoagulant therapy. SURGICAL HISTORY : Tonsillectomy. Parathyroidectomy. Renal transplant x 2. Ovarian cyst removal. Right rotator cuff repair. Peritoneal catheter. Lymph node removal. ENCOUNTER: Initial ACUITY: 3 days PAIN SCORE: 6/10 LOCATION: Bilateral pelvis MEASUREMENTS: UTERUS: 8.0 x 4.5 x 3.9 cm ENDOMETRIAL STRIPE: 8 mm RIGHT OVARY: 3.4 x 1.8 x 2.0 cm LEFT OVARY: 4.3 x 3.0 x 2.6 cm FINDINGS: UTERUS: The myometrium has homogeneous echotexture without mass. RIGHT OVARY: Ovary contains no mass or significant cystic lesion.Blood flow demonstrated. LEFT OVARY: There is a 21 x 26 x 18 mm benign-appearing cyst. Adnexal blood flow demonstrated. MISCELLANEOUS: No free fluid. CONCLUSION: No evidence of torsion. 26 mm benign-appearing cyst of the left ovary, could be rechecked in 8-12 [facility] with pelvic ultrasound if felt clinically indicated. Vinny Burns MD on February 20, 2017 at 18:36 Board Certified Radiologist. This report was verified electronically.
[2017-02-20] MEDS ORDERED: PERC5TAB12 PO (18:53)
[2017-02-20 19:08] LABS: APTT (PATIENT) 30.1 SEC (24.3-30.1); PROTHROMBIN TIME - PATIENT 10.9 SEC (9.8-11.6)
[2017-02-20 20:52] LABS: CHLAMYDIA PCR NOT DETECTED (NOT DETECT); NEISSERIA PCR NOT DETECTED (NOT DETECT)
[2017-02-21] MEDS ORDERED: CALC0.25 PO ×2 (04:33)
[2017-02-21] MEDS ORDERED: BENA25CA4 PO (07:25)
[2017-02-21] MEDS ORDERED: MEDR4PAK PO (07:25)
== END 2017-02-20 19:54 | disposition home or self-care (01) ==
LOC: NEPD 15:32
DX: R10.30 Lower abdominal pain, unspecified (principal); N83.202 Unspecified ovarian cyst, left side; I10 Essential (primary) hypertension
CPT/HCPCS: 76830; 76856; 80053; 81001; 85025; 85610; 85730; 87210; 87491; 87591; 93975; 96372; 96374; 96375; 96376; 99285; J0696; J2270; J2360; J2405

== ENCOUNTER 2017-02-21 04:21 | Emergency (ER) | payer BC, MEDICARE, OTHER ==
[~2017-02-21] VITALS: Ht 165.1 cm; Wt 88.0 kg
[~2017-02-21 04:21] MED LIST changes: +PERC5TAB12 PO
[2017-02-21 04:24] VITALS: BP 141/100; PULSE 126; RESP 24; TEMP 98.7
[2017-02-21] MEDS ORDERED: CALC0.25 PO ×2 (04:33)
[2017-02-21 04:34] VITALS: BP 141/94; PULSE 103; RESP 22; O2SAT 98
[2017-02-21 04:55] VITALS: BP 139/98; PULSE 114; O2SAT 99
[2017-02-21] MEDS ORDERED: FAMOTIDINE INJ 20 MG in SODIUM CHLORIDE 0.9% INJ 98 ML IV SCH (05:15)
[2017-02-21] MEDS ORDERED: SODIUM CHLOR 0.9% 1000 ML INJ 1,000 ML IV ONE (05:15)
[2017-02-21] MEDS ORDERED: methylPREDNISolone SOD SUCC 125 MG/2 ML VIAL IV PUSH ONE (05:15)
[2017-02-21 05:33] LABS: AUTOMATED NEUTROPHIL # 2.4 TH/MM3 (1.8-7.7); BASOPHIL % 0.4 % (0.0-2.0); EOSINOPHIL # 0.4 TH/MM3 (0-0.4); EOSINOPHIL % 6.5 % (0.0-4.0); HEMATOCRIT 39.7 % (35.0-46.0); HEMO FLAGS DIFF FINAL; LYMPH % 42.2 % (9.0-44.0); LYMPHOCYTE # 2.4 TH/MM3 (1.0-4.8); MEAN CELL VOLUME 91.1 FL (80.0-100.0); MEAN CORPUSCULAR HEMOGLOBIN 29.8 PG (27.0-34.0); MEAN CORPUSCULAR HGB CONC 32.7 % (32.0-36.0); MONO % 7.8 % (0.0-8.0); NEUT % 43.1 % (16.0-70.0); PLATELET COUNT 260 TH/MM3 (150-450); RED BLOOD COUNT 4.36 MIL/MM3 (4.00-5.30); RED CELL DISTRIBUTION WIDTH 13.6 % (11.6-17.2); WHITE BLOOD COUNT 5.6 TH/MM3 (4.0-11.0)
[2017-02-21] MEDS ORDERED: PROCHLORPERAZINE INJ 10 MG/2 ML VIAL IV PUSH ONE (06:00)
--- NOTE | 2017-02-21 06:00 | PD ---
HPI Chief Complaint: Allergic/Adverse Reaction Time Seen by Provider: 04:37 Travel History International Travel<30 days: No Contact w/Intl Traveler<30days: No Traveled to known affect area: No History of Present Illness HPI The patient is a 26 year old female who presents to the [facility] emergency department with a history of developing and itching and burning sensation all over that began 1 hour ago. She reports that the symptoms began 30 minutes after taking Tylenol with codeine for the first time for pain lower abdominal pain. The patient reports that she is normally on oxycodone 10/325 of acetaminophen chronically for median nerve pain. The patient reports that she last took this 2 days ago. She reports that she had nausea with taking this , therefore she did not take it again. The patient was seen in the emergency department on yesterday related to this lower abdominal pain. The patient underwent CT scan of the abdomen and pelvis as well as pelvic ultrasound. The patient was diagnosed with abdominal pain of undetermined origin with a small ovarian cysts noted in the pelvis. The patient was given a prescription for Tylenol with Codeine for the pain. She denies having any throat swelling, visible rash, abdominal cramping or diarrhea. She denies having any chest tightness or shortness of breath. The patient denies any recent fevers cough, congestion, neck pain, vomiting, diarrhea, urinary symptoms, or neurologic symptoms. [facility] Past Medical History Narrative Medical The patient's past medical history is significant for median nerve injury with a hematoma in 2014 on the left- now with chronic pain, history of renal failure related to glomerulonephritis status post kidney transplant, history of chronically being anticoagulated on warfarin related to a prior history of pulmonary embolism, history of acid reflux, anxiety, asthma, hypertension, history of ovarian cysts. Anemia: Yes Asthma: Yes Blood Disorders: No Anxiety: Yes Depression: No Heart Rhythm Problems: Yes Cancer: No Cardiovascular Problems: Yes High Cholesterol: No Chemotherapy: No Chest Pain: Yes (ON AND OFF FOR A COUPLE MONTHS) Congestive Heart Failure: No COPD: No Diabetes: No Diminished Hearing: No Endocrine: Yes (GLOMERLONEPHRITIS) Gastrointestinal Disorders: Yes (IBS) GERD: Yes (ibs) Hypertension: Yes Immune Disorder: No Implanted Vascular Access Dvce: Yes Musculoskeletal: No Neurologic: No Psychiatric: Yes Reproductive: Yes (hemorrhagic cyst in the uterus ) Respiratory: Yes Pneumonia: Yes Radiation Therapy: No Renal Failure: Yes (previously on dialysis ) Sleep Apnea: No Thyroid Disease: Yes Tetanus Vaccination: Never Vaccinated Influenza Vaccination: Yes ?: Unknown LMP: 01/26/17 Ovarian Cysts: Yes Past Surgical History Narrative Surgical The patient's past surgical history is significant for kidney transplant in 2013 , peritoneal catheter placement and then removal, fistula placement in the left arm and then removal, lymph node resection. Abdominal Surgery: Yes (PERITONEAL CATHETER PLACEMENT/REMOVAL) Body Medical Devices: USED TO HAVE A FISTULA Endocrine Surgery: Yes (KIDNEY TRANSPLANT X 2/PARATHYROIDECTOMY) Genitourinary Surgery: Yes (L kidney transplant 2012) Tonsillectomy: Yes Other Surgery: Yes (LYMPH NODE/LT ARM SHUNT REMOVAL) Social History Alcohol Use: Yes (occ) Tobacco Use: No Substance Use: No Allergies-Medications (Allergen,Severity, Reaction): Coded Allergies: Cozaar (Verified Allergy, Severe, Swelling, 01/02/17) Vancomycin (Verified Allergy, Severe, Anaphylaxis, 01/02/17) Vasotec (Verified Allergy, Severe, Swelling, 01/02/17) Reported Meds & Prescriptions Reported Meds & Active Scripts Active Zofran (Ondansetron HCl) 4 Mg Tab 4 Mg PO Q6HR PRN Tylenol-Codeine #3 (Acetaminophen-Codeine) 300-30 mg Tab 1 Tab PO Q6H PRN Reported Calcitriol 0.25 Mcg Cap 0.25 Mcg PO BID Calcitriol 0.25 Mcg Cap 0.25 Mcg PO DAILY Prednisolone Odt 10 Mg Tab 5 Mg SL DAILY Amlodipine (Amlodipine Besylate) 5 Mg Tab 5 Mg PO DAILY Famotidine 10 Mg Tab 10 Mg PO BID Tacrolimus 1 Mg Cap 8 Mg PO DAILY Warfarin 10 Mg Tab 10 Mg PO DAILY Lyrica (Pregabalin) 100 Mg Cap 100 Mg PO BID Percocet (Oxycodone-Acetaminophen) 10-325 mg Tab 1 Tab PO Q4H PRN [Methyl 2] Review of Systems Except as stated in HPI: all other systems reviewed are Neg General / Constitutional: No: Fever Eyes: No: Visual changes HENT: No: Headaches, Neck Stiffness, Neck Pain Cardiovascular: No: Chest Pain or Discomfort Respiratory: No: Shortness of Breath Gastrointestinal: Positive: Nausea, Abdominal Pain, No: Vomiting, Diarrhea, Changes in Bowel Habits, Indigestion, Loss of Appetite Genitourinary: Positive: Pelvic Pain, No: Urgency, Frequency, Dysuria Musculoskeletal: No: Pain Skin: Positive Itching, No Rash Neurologic: No: Weakness, Focal Abnormalities, Change in Mentation, Slurred Speech Psychiatric: No: Depression Endocrine: No: Polydipsia Hematologic/Lymphatic: No: Easy Bruising Physical Exam Narrative General: The patient is well-developed well-nourished female in no acute distress. Head and Neck exam: Head is normocephalic atraumatic. Eyes: EOMI, pupils are equal round and reactive to light. Nose: Midline septum with pink mucous membranes Mouth: Dentition unremarkable. Moist mucus membranes. Posterior oropharynx is not erythematous. No tonsillar hypertrophy. Uvula midline. Airway patent. The tongue or throat swelling. Neck: No palpable lymphadenopathy. No nuchal rigidity. No thyromegaly. Cardiovascular: Regular rate and rhythm without murmurs, gallops, or rubs. Lungs: Clear to auscultation bilaterally. No wheezes, rhonchi, or rales. Abdomen: Soft, with reported discomfort on palpation along bilateral lower quadrants of the pelvis and suprapubic area. No other tenderness on palpation of the abdomen No guarding, rebound, or rigidity. Normal bowel sounds are audible. No tenderness on palpation of McBurney's point. Extremities: No clubbing, cyanosis, or edema. 2+ pulses in all 4 extremities. No calf tenderness on palpation. Back: No spinous process tenderness to palpation. No costovertebral angle tenderness to palpation. Neurologic Exam: Grossly nonfocal. Skin Exam: No rash noted. Intact skin that is warm and dry. She has generalized itching noted. Data Data Last Documented VS Vital Signs Date Time Temp Pulse Resp B/P Pulse Ox O2 Delivery O2 Flow Rate FiO2 02/21/17 06:12 100 Room Air 02/21/17 06:12 92 144/99 02/21/17 04:34 22 02/21/17 04:24 98.7 Orders Complete Blood Count With Diff (02/21/17 05:06) Basic Metabolic Panel (Bmp) (02/21/17 05:06) Iv Access Insert/Monitor (02/21/17 05:06) Ecg Monitoring (02/21/17 05:06) Oximetry (02/21/17 05:06) Sodium Chlor 0.9% 1000 Ml Inj (Ns 1000 M (02/21/17 05:15) Methylprednisolone So Succ Inj (Solumedr (02/21/17 05:15) Famotidine Inj (Pepcid Inj) (02/21/17 05:15) Prochlorperazine Inj (Compazine Inj) (02/21/17 06:00) Morphine Inj (Morphine Inj) (02/21/17 06:15) Protein Corrected Calcium(Pcc) (02/21/17 05:24) Calcium Gluconate Inj (Calcium Gluconate (02/21/17 06:45) Labs Laboratory Tests Test 02/21/17 05:24 White Blood Count 5.6 TH/MM3 Red Blood Count 4.36 MIL/MM3 Hemoglobin 13.0 GM/DL Hematocrit 39.7 % Mean Corpuscular Volume 91.1 FL Mean Corpuscular Hemoglobin 29.8 PG Mean Corpuscular Hemoglobin 32.7 % Concent Red Cell Distribution Width 13.6 % Platelet Count 260 TH/MM3 Mean Platelet Volume 8.8 FL Neutrophils (%) (Auto) 43.1 % Lymphocytes (%) (Auto) 42.2 % Monocytes (%) (Auto) 7.8 % Eosinophils (%) (Auto) 6.5 % Basophils (%) (Auto) 0.4 % Neutrophils # (Auto) 2.4 TH/MM3 Lymphocytes # (Auto) 2.4 TH/MM3 Monocytes # (Auto) 0.4 TH/MM3 Eosinophils # (Auto) 0.4 TH/MM3 Basophils # (Auto) 0.0 TH/MM3 CBC Comment DIFF FINAL Differential Comment Sodium Level 138 MEQ/L Potassium Level 3.5 MEQ/L Chloride Level 102 MEQ/L Carbon Dioxide Level 27.9 MEQ/L Anion Gap 8 MEQ/L Blood Urea Nitrogen 17 MG/DL Creatinine 1.08 MG/DL Estimat Glomerular Filtration 74 ML/MIN Rate Random Glucose 81 MG/DL Calcium Level 7.4 MG/DL Protein Corrected Calcium 7.0 MG/DL Total Protein 8.2 GM/DL MDM Medical Decision Making Medical Screen Exam Complete: Yes Emergency Medical Condition: Yes Medical Record Reviewed: Yes Differential Diagnosis Allergic reaction, versus pruritus of undetermined origin Narrative Course During the course of the patients emergency department visit, the patients history, examination, and differential diagnosis were reviewed with the patient. The patient had IV access obtained and blood work sent for analysis. The patient states on a groundwater monitoring technician with oximetry and blood pressure monitoring. The patient was given Benadryl 50 mg IV prior to arrival by ambulance services. The patient was initially provided normal saline 1 L IV fluid bolus, famotidine 20 mg IV. The patient requested pain medication for the abdominal pain that she had been previously experiencing and had undergone workup for in the emergency department, therefore the patient was given morphine 4 mg IV, Compazine 5 mg IV. The patients laboratory studies were reviewed and remarkable for a white count of 5.6, hemoglobin 13.0, platelets 260 with 6.5 eosinophils, BNP is remarkable for creatinine 1.08, protein corrected calcium 7.0. The patient was given 1 g of calcium gluconate IV. The patient on reexamination is feeling improved. The patient will be discharged home with a prescription for Benadryl, Medrol Dosepak taper. The patient was instructed to avoid Tylenol with codeine in the future. The patient is instructed instructed to take her usual pain medication as needed. The patient is resting comfortably and feels better, is alert and in no distress. The patients results and examination findings were discussed with the patient. The repeat examination is unremarkable and benign. The history, exam, diagnostic testing, and current condition do not suggest any significant pathology to warrant further testing, continued ED treatment, admission, or surgical evaluation at this point. The vital signs have been stable. The patient does not have uncontrollable pain, intractable vomiting, or other significant symptoms. The patient's condition is stable and appropriate for discharge. The patient will pursue further outpatient evaluation with a primary care physician or other designated or consulting physician as indicated in the discharge instructions. The patient expressed understanding and was agreeable with this plan. Diagnosis Primary Impression: Allergic reaction caused by a drug Qualified Code: T78.40XA - Allergic reaction caused by a drug, initial encounter Referrals: Primary Care Physician Additional Instructions: Avoid Tylenol with codeine in the future Med/Other Pt SpecificInfo: Prescription(s) given Scripts Diphenhydramine HCl (Benadryl Allergy)25 Mg Cap1 Tab PO q 6 hour #12 Prov:Kylie Conner MD 02/21/17 Methylprednisolone Dosepak (Medrol Dosepak)4 Mg Dspk4 Mg PO DIRECTED #1 DSPK Ref 0 Per Pharmacist direction Prov:Kylie Conner MD 02/21/17 Disposition: 01 DISCHARGE HOME Condition: Stable Kylie Conner MD Feb 21, 2017 05:59
[2017-02-21 06:03] LABS: BICARBONATE 27.9 MEQ/L (21.0-32.0); POTASSIUM 3.5 MEQ/L (3.5-5.1)
[2017-02-21 06:12] VITALS: BP 144/99; PULSE 92; O2SAT 100; O2SAT 99
[2017-02-21] MEDS ORDERED: MORPHINE SULFATE 4 MG/ML INJ IV PUSH ONE (06:15)
[2017-02-21] MEDS ORDERED: CALCIUM GLUCONATE INJ 1 GM in DEXTROSE 5% IN WATER 100ML INJ 100 ML IV ONE ×2 (06:45)
[2017-02-21 07:16] VITALS: BP 150/104; PULSE 103; RESP 18; O2SAT 98
[2017-02-21] MEDS ORDERED: BENA25CA4 PO (07:25)
[2017-02-21] MEDS ORDERED: MEDR4PAK PO (07:25)
== END 2017-02-21 09:33 | disposition home or self-care (01) ==
LOC: NEPE 04:21
DX: L29.9 Pruritus, unspecified (principal); T50.905A Adverse effect of unspecified drugs, medicaments and biological substances, initial encounter
CPT/HCPCS: 80048; 84155; 85025; 96361; 96374; 96375; 99284; J0610; J0780; J2270; J2930; J7030

== ENCOUNTER 2017-02-23 00:52 | Emergency (ER) | payer BC, MEDICARE, OTHER ==
[~2017-02-23 00:52] MED LIST changes: -ALPR.25 PO; +BENA25CA4 PO; +CALC0.25 PO; +MEDR4PAK PO; -PERC5TAB12 PO
[2017-02-23 00:55] VITALS: BP 130/93; PULSE 120; RESP 16; TEMP 98.7; O2SAT 99
[2017-02-23] MEDS ORDERED: REGL10TA5 PO ×2 (03:27→03:58)
--- NOTE | 2017-02-23 03:27 | PD ---
HPI Chief Complaint: GI Complaint Time Seen by Provider: 03:12 Travel History International Travel<30 days: No Contact w/Intl Traveler<30days: No Traveled to known affect area: No History of Present Illness HPI A 26-year-old woman who presents to the emergency department complaining of ongoing vomiting and some headache. She's been seen several times in the past week in emergency Department with abdominal pain. She states that she's been having ongoing nausea vomiting that the Zofran stating at home as well but a little bit with. She also quite some headache. She has neck pain as well. States she is prone to headaches. She denies any change in her urine. She is IBS her bowel movements she states are always a little bit abnormal. No other change. No other complaints. She's been compliant with her warfarin, as well as her immunosuppressants. History Past Medical History Narrative Medical PE, on warfarin End-stage renal disease status post transplant, on Prograf, CellCept, and prednisone GERD Anxiety Hypertension Chronic pain Social History Alcohol Use: Yes (occ) Tobacco Use: No Allergies-Medications (Allergen,Severity, Reaction): Coded Allergies: Cozaar (Verified Allergy, Severe, Swelling, 01/02/17) Vancomycin (Verified Allergy, Severe, Anaphylaxis, 01/02/17) Vasotec (Verified Allergy, Severe, Swelling, 01/02/17) Reported Meds & Prescriptions Reported Meds & Active Scripts Active Benadryl Allergy (Diphenhydramine HCl) 25 Mg Cap 1 Tab PO Q 6 HOUR Medrol Dosepak (Methylprednisolone) 4 Mg Dspk 4 Mg PO DIRECTED Per Pharmacist direction Zofran (Ondansetron HCl) 4 Mg Tab 4 Mg PO Q6HR PRN Tylenol-Codeine #3 (Acetaminophen-Codeine) 300-30 mg Tab 1 Tab PO Q6H PRN Reported Calcitriol 0.25 Mcg Cap 0.25 Mcg PO BID Calcitriol 0.25 Mcg Cap 0.25 Mcg PO DAILY Prednisolone Odt 10 Mg Tab 5 Mg SL DAILY Amlodipine (Amlodipine Besylate) 5 Mg Tab 5 Mg PO DAILY Famotidine 10 Mg Tab 10 Mg PO BID Tacrolimus 1 Mg Cap 8 Mg PO DAILY Warfarin 10 Mg Tab 10 Mg PO DAILY Lyrica (Pregabalin) 100 Mg Cap 100 Mg PO BID Percocet (Oxycodone-Acetaminophen) 10-325 mg Tab 1 Tab PO Q4H PRN [Methyl 2] Review of Systems Except as stated in HPI: all other systems reviewed are Neg Physical Exam Narrative GENERAL: 26-year-old woman, no acute distress. SKIN: Focused skin assessment warm/dry. HEAD: Atraumatic. Normocephalic. EYES: Pupils equal and round. No scleral icterus. No injection or drainage. ENT: No nasal bleeding or discharge. Mucous membranes pink and moist. NECK: Trachea midline. No meningismus. CARDIOVASCULAR: Regular rate and rhythm. No murmur appreciated. RESPIRATORY: No accessory muscle use. Clear to auscultation. Breath sounds equal bilaterally. GASTROINTESTINAL: Abdomen is flat and soft. Left suprapubic renal transplant. No specific renal transplant tenderness. MUSCULOSKELETAL: No obvious deformities. No clubbing. No cyanosis. No edema. Data Data Last Documented VS Vital Signs Date Time Temp Pulse Resp B/P Pulse Ox O2 Delivery O2 Flow Rate FiO2 02/23/17 00:55 98.7 120 16 130/93 99 MDM Medical Decision Making Medical Screen Exam Complete: Yes Emergency Medical Condition: Yes Medical Record Reviewed: Yes Differential Diagnosis Headache, migraine, infection, rejection, other Narrative Course Medical decision making 26 year-old woman, multiple medical comorbidities here for her fourth time for nausea vomiting and now some headache. Reviewed all her records, reviewed her imaging, labs. She has no tenderness over her transplant or other evidence of rejection. Imaging was otherwise unremarkable. This finding she can follow up with her primary doctor, I don't think she needs repeat labs are repeated imaging. Diagnosis Primary Impression: Vomiting Additional Impression: Headache Additional Instructions: Take Reglan as needed for nausea or vomiting. Follow-up with your regular doctor for further evaluation of your new abdominal pain and vomiting. Follow-up with your wrapper hand for further evaluation and monitoring of your transplant. Return to the emergency department for any new or worsening symptoms. Med/Other Pt SpecificInfo: Prescription(s) given Scripts Metoclopramide (Reglan)10 Mg Tab10 Mg PO QID PRN (NAUSEA OR VOMITING) #30 TAB Ref 0 Prov:Marc Meyer MD 02/23/17 Disposition: 01 DISCHARGE HOME Condition: Stable Marc Meyer MD Feb 23, 2017 03:27
[2017-02-23] MEDS ORDERED: METOCLOPRAMIDE HCL 10 MG TAB PO ONE (03:30)
[2017-02-23] MEDS ORDERED: ACETAMINOPHEN 325 MG TAB PO ONE (03:30)
== END 2017-02-23 04:01 | disposition home or self-care (01) ==
LOC: NEPC 00:52
DX: R11.2 Nausea with vomiting, unspecified (principal); R51 Headache
CPT/HCPCS: 99283

== ENCOUNTER 2017-02-26 13:33 | Emergency (ER) | payer BC, MEDICARE, OTHER ==
[~2017-02-26] VITALS: Ht 165.1 cm; Wt 86.0 kg
[~2017-02-26 13:33] MED LIST changes: +REGL10TA5 PO
[2017-02-26 13:35] VITALS: BP 158/113; PULSE 132; RESP 24; TEMP 99.7; O2SAT 97
[2017-02-26] MEDS ORDERED: SODIUM CHLORIDE 0.9% FLUSH 10 ML FLUSH IV FLUSH PRN (14:15)
[2017-02-26] MEDS ORDERED: MORPHINE SULFATE 4 MG/ML INJ IV PUSH ONE (14:15)
[2017-02-26] MEDS ORDERED: ONDANSETRON HCL 4 MG/2 ML VIAL IVP ONE (14:15)
--- NOTE | 2017-02-26 14:29 | PD ---
HPI Chief Complaint: Musculoskeletal Complaint Time Seen by Provider: 14:00 Travel History International Travel<30 days: No Contact w/Intl Traveler<30days: No Traveled to known affect area: No History of Present Illness HPI 26-year-old female with history of end-stage renal disease status post renal transplant currently on tacrolimus, previous history of PE currently on Coumadin , hypertension, seen recently for abdominal pains, presents to ER today because of left upper arm pain where her graft used to be. She states that he started hurting last night on his own and she feels swelling in the area. She denies any fevers, chest pains, or any other symptoms. She states that she had problems with the graft that used to be there and had been taken out. Modifying Factors: None Associated Signs & Symptoms: Left upper arm pain, site of previous graft Risk Factors: None PFSH Past Medical History Hx Anticoagulant Therapy: Yes (WARFARIN) Anemia: Yes Asthma: Yes Blood Disorders: No Anxiety: Yes Depression: No Heart Rhythm Problems: Yes Cancer: No Cardiovascular Problems: Yes High Cholesterol: No Chemotherapy: No Chest Pain: Yes (ON AND OFF FOR A COUPLE MONTHS) Congestive Heart Failure: No COPD: No Diabetes: No Diminished Hearing: No Endocrine: Yes (GLOMERLONEPHRITIS) Gastrointestinal Disorders: Yes (IBS) GERD: Yes (ibs) Hypertension: Yes Immune Disorder: No Implanted Vascular Access Dvce: Yes Musculoskeletal: No Neurologic: No Psychiatric: Yes Reproductive: Yes (hemorrhagic cyst in the uterus ) Respiratory: Yes (ASTHMA) Pneumonia: Yes Radiation Therapy: No Renal Failure: Yes (previously on dialysis ) Sleep Apnea: No Thyroid Disease: Yes ?: Not LMP: 01/26/17 Ovarian Cysts: Yes Past Surgical History Abdominal Surgery: Yes (PERITONEAL CATHETER PLACEMENT/REMOVAL) Body Medical Devices: USED TO HAVE A FISTULA Endocrine Surgery: Yes (KIDNEY TRANSPLANT X 2/PARATHYROIDECTOMY) Genitourinary Surgery: Yes (L kidney transplant 2012) Tonsillectomy: Yes Other Surgery: Yes (LYMPH NODE/LT ARM SHUNT REMOVAL) Social History Alcohol Use: Yes (occ) Tobacco Use: No Substance Use: No Allergies-Medications (Allergen,Severity, Reaction): Coded Allergies: Cozaar (Verified Allergy, Severe, Swelling, 01/02/17) Vancomycin (Verified Allergy, Severe, Anaphylaxis, 01/02/17) Vasotec (Verified Allergy, Severe, Swelling, 01/02/17) Reported Meds & Prescriptions Reported Meds & Active Scripts Active Reglan (Metoclopramide HCl) 10 Mg Tab 10 Mg PO QID PRN Benadryl Allergy (Diphenhydramine HCl) 25 Mg Cap 1 Tab PO Q 6 HOUR Zofran (Ondansetron HCl) 4 Mg Tab 4 Mg PO Q6HR PRN Tylenol-Codeine #3 (Acetaminophen-Codeine) 300-30 mg Tab 1 Tab PO Q6H PRN Reported Prednisone 10 Mg Tab 10 Mg PO DAILY Calcitriol 0.25 Mcg Cap 0.25 Mcg PO BID Amlodipine (Amlodipine Besylate) 5 Mg Tab 5 Mg PO DAILY Famotidine 10 Mg Tab 10 Mg PO BID Tacrolimus 1 Mg Cap 4 Mg PO BID Warfarin 10 Mg Tab 10 Mg PO HS Lyrica (Pregabalin) 100 Mg Cap 100 Mg PO BID Percocet (Oxycodone-Acetaminophen) 10-325 mg Tab 1 Tab PO Q4H PRN Review of Systems Except as stated in HPI: all other systems reviewed are Neg Physical Exam Narrative GENERAL: Young -[place] female patient currently in mild distress. Awake and oriented 3. SKIN: Focused skin assessment warm/dry. HEAD: Atraumatic. Normocephalic. EYES: Pupils equal and round. No scleral icterus. No injection or drainage. ENT: No nasal bleeding or discharge. Mucous membranes pink and moist. NECK: Trachea midline. No JVD. CARDIOVASCULAR: Regular rate and rhythm. No murmur appreciated. RESPIRATORY: No accessory muscle use. Clear to auscultation. Breath sounds equal bilaterally. GASTROINTESTINAL: Abdomen soft, non-tender, nondistended. Hepatic and splenic margins not palpable. MUSCULOSKELETAL: No obvious deformities. No clubbing. No cyanosis. No edema. NEUROLOGICAL: Awake and alert. No obvious cranial nerve deficits. Motor grossly within normal limits. Normal speech. Left upper extremity: The upper arm previous graft site shows mild induration with no signs of significant erythema, fluctuance, and I do not palpate a thrill. Mildly tender to palpation. PSYCHIATRIC: Appropriate mood and affect; insight and judgment normal. Data Data Last Documented VS Vital Signs Date Time Temp Pulse Resp B/P Pulse Ox O2 Delivery O2 Flow Rate FiO2 02/26/17 14:33 100 15 02/26/17 14:33 121/82 99 Room Air 02/26/17 13:35 99.7 Orders Complete Blood Count With Diff (02/26/17 14:02) Comprehensive Metabolic Panel (02/26/17 14:02) Prothrombin Time / Inr (Pt) (02/26/17 14:02) Act Partial Throm Time (Ptt) (02/26/17 14:02) Urinalysis - C+S If Indicated (02/26/17 14:02) Iv Access Insert/Monitor (02/26/17 14:02) Ecg Monitoring (02/26/17 14:02) Oximetry (02/26/17 14:02) Morphine Inj (Morphine Inj) (02/26/17 14:15) Ondansetron Inj (Zofran Inj) (02/26/17 14:15) Sodium Chloride 0.9% Flush (Ns Flush) (02/26/17 14:15) Us Arm Venous Doppler (02/26/17 14:02) Urine Culture (02/26/17 14:15) Vascular Access Team Consult/P PRN (02/26/17 15:14) Vascular Poc Ultrasound (02/26/17 ) Ondansetron Odt (Zofran Odt) (02/26/17 15:45) Enoxaparin Inj (Lovenox Inj) (02/26/17 16:00) Labs Laboratory Tests Test 02/26/17 14:15 White Blood Count 4.7 TH/MM3 Red Blood Count 4.14 MIL/MM3 Hemoglobin 12.5 GM/DL Hematocrit 37.5 % Mean Corpuscular Volume 90.5 FL Mean Corpuscular Hemoglobin 30.2 PG Mean Corpuscular Hemoglobin 33.4 % Concent Red Cell Distribution Width 13.6 % Platelet Count 251 TH/MM3 Mean Platelet Volume 8.8 FL Neutrophils (%) (Auto) 55.8 % Lymphocytes (%) (Auto) 30.4 % Monocytes (%) (Auto) 5.7 % Eosinophils (%) (Auto) 7.6 % Basophils (%) (Auto) 0.5 % Neutrophils # (Auto) 2.6 TH/MM3 Lymphocytes # (Auto) 1.4 TH/MM3 Monocytes # (Auto) 0.3 TH/MM3 Eosinophils # (Auto) 0.4 TH/MM3 Basophils # (Auto) 0.0 TH/MM3 CBC Comment DIFF FINAL Differential Comment Prothrombin Time 11.8 SEC Prothromb Time International 1.1 RATIO Ratio Activated Partial 27.7 SEC Thromboplast Time Urine Color YELLOW Urine Turbidity HAZY Urine pH 5.5 Urine Specific [place] 1.029 Urine Protein 30 mg/dL Urine Glucose (UA) NEG mg/dL Urine Ketones TRACE mg/dL Urine Occult Blood NEG Urine Nitrite NEG Urine Bilirubin NEG Urine Urobilinogen LESS THAN 2.0 MG/DL Urine Leukocyte Esterase TRACE Urine RBC 3 /hpf Urine WBC 5 /hpf Urine Squamous Epithelial 32 /hpf Cells Urine Transitional Epithelial <1 /hpf Cells Urine Bacteria MANY /hpf Urine Mucus MOD /lpf Microscopic Urinalysis Comment CULTURE INDICATED Sodium Level 138 MEQ/L Potassium Level 4.0 MEQ/L Chloride Level 106 MEQ/L Carbon Dioxide Level 23.6 MEQ/L Anion Gap 8 MEQ/L Blood Urea Nitrogen 15 MG/DL Creatinine 1.08 MG/DL Estimat Glomerular Filtration 74 ML/MIN Rate Random Glucose 110 MG/DL Calcium Level 7.4 MG/DL Protein Corrected Calcium MG/DL Total Bilirubin 0.4 MG/DL Aspartate Amino Transf 26 U/L (AST/SGOT) Alanine Aminotransferase 15 U/L (ALT/SGPT) Alkaline Phosphatase 55 U/L Total Protein 8.6 GM/DL Albumin 3.9 GM/DL [facility] Medical Decision Making Medical Screen Exam Complete: Yes Emergency Medical Condition: Yes Medical Record Reviewed: Yes Interpretation(s) Laboratory Tests Test 02/26/17 14:15 Eosinophils (%) (Auto) 7.6 % (0.0-4.0) Prothrombin Time 11.8 SEC (9.8-11.6) Urine Turbidity HAZY (CLEAR) Urine Protein 30 mg/dL (NEG-TRACE) Urine Ketones TRACE mg/dL (NEG) Urine Leukocyte Esterase TRACE (NEG) Urine Bacteria MANY /hpf (NONE) Urine Mucus MOD /lpf (OCC) Creatinine 1.08 MG/DL (0.50-1.00) Estimat Glomerular Filtration 74 ML/MIN (>89) Rate Random Glucose 110 MG/DL (74-106) Calcium Level 7.4 MG/DL (8.5-10.1) Total Protein 8.6 GM/DL (6.4-8.2) Last 24 hours Impressions Upper Extremity Ultrasound 02/26/17 1402 Signed Impressions: Service Date/Time: Tuesday, February 26, 2017 14:20 - CONCLUSION: Left basilic vein occlusion in this patient with history of left upper central likely venous stent. The stent appears partially fractured/crushed on the recent prior chest radiographs. Clinical correlation is recommended. Jose Stallings MD Differential Diagnosis DVT versus cellulitis versus strain Narrative Course I do not see any signs of cellulitis. Ultrasound reveals DVT in the basilic vein but otherwise did not show any signs of other DVT. Case was briefly discussed with of vascular surgery and he states that this is normal for patient who had a graft for dialysis in the past. At this point, I do not see other signs of acute processes. However, patient is post to be on Coumadin and her INR is 1.1. Patient apparently states that she was given vitamin K last week for procedure and they have been trying to get her INR down. However, it appears that the INR has over shot to normal which would put her at increased risk of DVTs. Considering that she has had previous history of problems with this, my plan would be to give her Lovenox to cover for now and have her continue using her Coumadin and follow-up with primary care physician this week. Return for any worsening in pain or new symptoms as needed. The plan was discussed with her and she states understanding. She also states that she has been on Lovenox in the past, September, and knows how to inject herself. Diagnosis Primary Impression: Left arm pain Med/Other Pt SpecificInfo: Prescription(s) given Scripts Enoxaparin Inj (Lovenox Inj)40 Mg/0.4 Ml Syr40 Mg SQ DAILY #7 SYRINGE Ref 0 Prov:Oskar Adorno MD 02/26/17 Disposition: 01 DISCHARGE HOME Condition: Stable Oskar Adorno MD Feb 26, 2017 14:29
[2017-02-26 14:33] VITALS: BP 121/82; PULSE 102; RESP 15; O2SAT 99
[2017-02-26 14:38] LABS: AUTOMATED NEUTROPHIL # 2.6 TH/MM3 (1.8-7.7); BASOPHIL % 0.5 % (0.0-2.0); EOSINOPHIL # 0.4 TH/MM3 (0-0.4); EOSINOPHIL % 7.6 % (0.0-4.0); HEMATOCRIT 37.5 % (35.0-46.0); HEMO FLAGS DIFF FINAL; LYMPH % 30.4 % (9.0-44.0); LYMPHOCYTE # 1.4 TH/MM3 (1.0-4.8); MEAN CELL VOLUME 90.5 FL (80.0-100.0); MEAN CORPUSCULAR HEMOGLOBIN 30.2 PG (27.0-34.0); MEAN CORPUSCULAR HGB CONC 33.4 % (32.0-36.0); MONO % 5.7 % (0.0-8.0); NEUT % 55.8 % (16.0-70.0); PLATELET COUNT 251 TH/MM3 (150-450); RED BLOOD COUNT 4.14 MIL/MM3 (4.00-5.30); RED CELL DISTRIBUTION WIDTH 13.6 % (11.6-17.2); WHITE BLOOD COUNT 4.7 TH/MM3 (4.0-11.0)
[2017-02-26 14:48] LABS: BACTERIA, URINE MANY /hpf; BLOOD, URINE NEG (NEG); COMMENT (UR) CULTURE INDICATED; CULTURE IF INDICATED CULTURE INDICATED; GLUCOSE,URINE NEG (NEG); KETONE, URINE TRACE mg/dL (NEG); MUCUS URINE MOD /lpf (OCC); NITRITE,URINE NEG (NEG); PH, URINE 5.5 (5.0-8.5); SQUAMOUS EPITHELIAL CELL URINE 32 /hpf (0-5); TRANSITIONAL EPI CELLS, URINE <1 /hpf; URINE COLOR YELLOW (YELLW/STRAW)
[2017-02-26] MEDS ORDERED: PRED10 PO (15:00)
[2017-02-26 15:02] LABS: APTT (PATIENT) 27.7 SEC (24.3-30.1); INTERNATIONAL NORMALIZED RATIO 1.1 RATIO; PROTHROMBIN TIME - PATIENT 11.8 SEC (9.8-11.6)
--- NOTE | 2017-02-26 15:07 | RADRPT ---
EXAM DATE/TIME: 02/26/2017 14:20 [facility] COMPARISON: No previous studies available for comparison. INDICATIONS : Left arm swelling and pain. MEDICAL HISTORY : Irregular heartbeat. Thyroid disease. Chest pain. Asthma. Pneumonia. IBS. GERD. Hemorrhage cyst in ut erus. Ovarian cysts. Renal failure. Glomerlonephritis. Anemia. Anxiety. Anticoagulant therapy, Warfar in. SURGICAL HISTORY : Tonsillectomy. Peritoneal catheter placement and removal. Dialysis. Left kidney transplant x2. Par athyroidectomy. Right rotator cuff. Lymph node removal. Left arm shunt removal. ENCOUNTER: Initial ACUITY: 1 day PAIN SCORE: 8/10 LOCATION: Left arm. FINDINGS: The left basilic vein is occluded nearly in its entirety. There is spontaneous flow documented in the brachial, cephalic, axillary, and subclavian veins. The vessels are compressible and augmentation r esponse is documented. No filling defects are seen. The flow is phasic with respiration. Direction of flow in the jugular is caudal. CONCLUSION: Left basilic vein occlusion in this patient with history of left upper central likely venous stent. T he stent appears partially fractured/crushed on the recent prior chest radiographs. Clinical correlat ion is recommended. Jose Stallings MD on February 26, 2017 at 15:00 Board Certified Radiologist. This report was verified electronically.
[2017-02-26 15:22] LABS: BICARBONATE 23.6 MEQ/L (21.0-32.0); TOTAL BILIRUBIN ADULT 0.4 MG/DL (0.2-1.0)
[2017-02-26] MEDS ORDERED: ONDANSETRON ODT 4 MG TAB PO ONE (15:45)
[2017-02-26] MEDS ORDERED: ENOXAPARIN SODIUM 80 MG/0.8 ML SYRINGE SQ ONE (16:00)
[2017-02-26] MEDS ORDERED: ENOX40P SQ (16:04)
[2017-02-26 16:08] VITALS: BP 121/82
[2017-02-26] MEDS ORDERED: ENOX30P SQ (16:08)
[2017-02-26] MEDS ORDERED: ENOXAPARIN SODIUM 40 MG/0.4 ML SYRINGE SQ ONE (16:15)
[2017-02-27] MEDS ORDERED: PERC5TAB12 PO (01:45)
== END 2017-02-26 16:16 | disposition home or self-care (01) ==
LOC: NEPC 13:33
DX: M79.602 Pain in left arm (principal); N39.0 Urinary tract infection, site not specified; B96.89 Other specified bacterial agents as the cause of diseases classified elsewhere; Z94.0 Kidney transplant status
CPT/HCPCS: 80053; 81001; 85025; 85610; 85730; 87086; 93971; 96372; 96374; 96375; 99285; J1650; J2270; J2405

== ENCOUNTER 2017-02-27 00:32 | Emergency (ER) | payer BC, MEDICARE, OTHER ==
[~2017-02-27] VITALS: Ht 165.1 cm; Wt 85.0 kg
[~2017-02-27 00:32] MED LIST changes: +ENOX30P SQ; -MEDR4PAK PO; -METHYL; +PRED10 PO; -PRED1TAB72 SL
[2017-02-27 00:35] VITALS: BP 131/89; PULSE 118; RESP 16; TEMP 99.2; O2SAT 97
[2017-02-27 01:27] VITALS: BP 123/84; PULSE 114; RESP 20; O2SAT 99
[2017-02-27] MEDS ORDERED: METOCLOPRAMIDE HCL 10 MG TAB PO ONE (01:45)
[2017-02-27] MEDS ORDERED: PERC5TAB12 PO (01:45)
[2017-02-27] MEDS ORDERED: oxyCODONE/ACETAMINOPHEN 5 MG/325 MG TAB PO ONE (01:45)
--- NOTE | 2017-02-27 01:45 | PD ---
HPI Chief Complaint: Pain: Acute or Chronic Time Seen by Provider: 01:37 Travel History International Travel<30 days: No Contact w/Intl Traveler<30days: No Traveled to known affect area: No History of Present Illness HPI 26-year-old female with history of ESRD status post renal transplant here with complaint of pain in the left upper extremity. Patient seen here in our emergency department yesterday for pain and had a duplex ultrasound showing a DVT in her previous graft site in the left upper extremity. Vascular surgery was consulted and stated that this was normal and patient was to be discharged home with Lovenox, which she has used previously, and continuation of her home Coumadin which was subtherapeutic. Patient has been compliant with this regimen but states that her pain has slightly increased and she feels some tingling sensation in the left upper extremity as well. PFSH Past Medical History Hx Anticoagulant Therapy: Yes (WARFARIN) Anemia: Yes Asthma: Yes Blood Disorders: No Anxiety: Yes Depression: No Heart Rhythm Problems: Yes Cancer: No Cardiovascular Problems: Yes High Cholesterol: No Chemotherapy: No Chest Pain: Yes (ON AND OFF FOR A COUPLE MONTHS) Congestive Heart Failure: No COPD: No Diabetes: No Dialysis: Yes Diminished Hearing: No Deep Vein Thrombosis: Yes Endocrine: Yes (GLOMERLONEPHRITIS) Gastrointestinal Disorders: Yes (IBS) GERD: Yes Hypertension: Yes Immune Disorder: No Implanted Vascular Access Dvce: Yes Musculoskeletal: No Neurologic: No Psychiatric: Yes Reproductive: Yes (hemorrhagic cyst in the uterus ) Respiratory: Yes (ASTHMA) Immunizations Current: Yes Pneumonia: Yes Radiation Therapy: No Renal Failure: Yes (kidney transplant) Sleep Apnea: No Tetanus Vaccination: Unknown Influenza Vaccination: Yes ?: Unknown LMP: 01/26/17 Ovarian Cysts: Yes Past Surgical History Abdominal Surgery: Yes (PERITONEAL CATHETER PLACEMENT/REMOVAL) Body Medical Devices: USED TO HAVE A FISTULA Endocrine Surgery: Yes (KIDNEY TRANSPLANT X 2/PARATHYROIDECTOMY) Genitourinary Surgery: Yes (L kidney transplant 2012) Tonsillectomy: Yes Other Surgery: Yes (LYMPH NODE/LT ARM SHUNT REMOVAL) Social History Alcohol Use: Yes (OCCASIONAL) Tobacco Use: No Substance Use: No Allergies-Medications (Allergen,Severity, Reaction): Coded Allergies: Cozaar (Verified Allergy, Severe, Swelling, 02/27/17) Vancomycin (Verified Allergy, Severe, Anaphylaxis, 02/27/17) Vasotec (Verified Allergy, Severe, Swelling, 02/27/17) Reported Meds & Prescriptions Reported Meds & Active Scripts Active Lovenox Inj (Enoxaparin Sodium) 30 Mg/0.3 Ml Syr 30 Mg SQ DAILY Reglan (Metoclopramide HCl) 10 Mg Tab 10 Mg PO QID PRN Benadryl Allergy (Diphenhydramine HCl) 25 Mg Cap 1 Tab PO Q 6 HOUR Zofran (Ondansetron HCl) 4 Mg Tab 4 Mg PO Q6HR PRN Reported Prednisone 10 Mg Tab 10 Mg PO DAILY Calcitriol 0.25 Mcg Cap 0.25 Mcg PO BID Amlodipine (Amlodipine Besylate) 5 Mg Tab 5 Mg PO DAILY Famotidine 10 Mg Tab 10 Mg PO BID Tacrolimus 1 Mg Cap 4 Mg PO BID Warfarin 10 Mg Tab 10 Mg PO HS Lyrica (Pregabalin) 100 Mg Cap 100 Mg PO BID Percocet (Oxycodone-Acetaminophen) 10-325 mg Tab 1 Tab PO Q4H PRN Review of Systems Except as stated in HPI: all other systems reviewed are Neg Physical Exam Narrative GENERAL: Well-appearing female in no acute distress SKIN: Focused skin assessment warm/dry. HEAD: Normocephalic. EYES: No scleral icterus. No injection or drainage. ENT: Mucous membranes pink and moist. NECK: Supple CARDIOVASCULAR: Regular rate and rhythm. No murmur appreciated. RESPIRATORY: No accessory muscle use. Clear to auscultation. Breath sounds equal bilaterally. MUSCULOSKELETAL: Left upper extremity without any appreciable swelling. Previous graft site without palpable thrill. Patient has tenderness to palpation in the bicep region without palpable cords. Good distal sensation and pulses. Complains of subjective paresthesias only NEUROLOGICAL: Awake and alert. Normal speech. PSYCHIATRIC: Appropriate mood and affect; insight and judgment normal. Data Data Last Documented VS Vital Signs Date Time Temp Pulse Resp B/P Pulse Ox O2 Delivery O2 Flow Rate FiO2 02/27/17 01:27 114 20 123/84 99 Room Air 02/27/17 00:35 99.2 [facility] Medical Decision Making Medical Screen Exam Complete: Yes Emergency Medical Condition: Yes Medical Record Reviewed: Yes Differential Diagnosis 26-year-old female with known left upper extremity DVT in the basilic here with complaint of persistent pain. We already know the diagnosis, patient has a known DVT. At this point she is being treated appropriately with Lovenox and Coumadin and really just needs symptomatic management. Narrative Course Patient was given dose of Reglan and Percocet and discharged home Diagnosis Primary Impression: Left upper extremity deep vein thrombosis Qualified Code: I82.622 - Acute deep vein thrombosis (DVT) of left upper extremity, unspecified vein Referrals: Primary Care Physician call for appointment Additional Instructions: Reglan as needed for nausea with associated Percocet for pain. Follow-up with primary care physician as discussed Med/Other Pt SpecificInfo: Prescription(s) given Scripts Oxycodone-Acetaminophen (Percocet)5-325 mg Tab1-2 Tab PO Q4H PRN (PAIN) #10 TAB Ref 0 Prov:Anabell Adan MD 02/27/17 Disposition: 01 DISCHARGE HOME Condition: Stable Anabell Adan MD Feb 27, 2017 01:45
== END 2017-02-27 01:57 | disposition home or self-care (01) ==
LOC: NEPE 00:32
DX: I82.622 Acute embolism and thrombosis of deep veins of left upper extremity (principal); N18.6 End stage renal disease; D64.9 Anemia, unspecified; J45.909 Unspecified asthma, uncomplicated; F41.9 Anxiety disorder, unspecified; K58.9 Irritable bowel syndrome, unspecified; K21.9 Gastro-esophageal reflux disease without esophagitis; I10 Essential (primary) hypertension; Z86.718 Personal history of other venous thrombosis and embolism
CPT/HCPCS: 99283

== ENCOUNTER 2017-05-31 20:32 | Emergency (ER) | payer MEDICARE, BC, OTHER ==
[~2017-05-31] VITALS: Ht 165.1 cm; Wt 86.0 kg
[~2017-05-31 20:32] MED LIST changes: +PERC5TAB12 PO; -TYLETAB34 PO
[2017-05-31 20:33] VITALS: BP 134/99; PULSE 129; RESP 18; TEMP 99.2; O2SAT 97
[2017-05-31] MEDS ORDERED: SODIUM CHLOR 0.9% 1000 ML INJ 1,000 ML IV ONE ×2 (21:29→21:30)
[2017-05-31] MEDS ORDERED: SODIUM CHLORIDE 0.9% FLUSH 10 ML FLUSH IVF PRN (21:30)
[2017-05-31] MEDS ORDERED: METOCLOPRAMIDE HCL 10 MG/2 ML VIAL IVP ONE (21:30)
[2017-05-31] MEDS ORDERED: diphenhydrAMINE HCL 50 MG/ML VIAL IV PUSH ONE (21:30)
[2017-05-31] MEDS ORDERED: DEXAMETHASONE SOD PHOS 20 MG/5 ML VIAL IV PUSH ONE (21:30)
--- NOTE | 2017-05-31 21:44 | PD ---
HPI Chief Complaint: Headache Time Seen by Provider: 21:20 Travel History International Travel<30 days: No Contact w/Intl Traveler<30days: No Traveled to known affect area: No History of Present Illness HPI 27-year-old female presents to the emergency department for evaluation of cephalgia that started 3 days ago. Patient states the pain is located on the posterior aspect of her head is throbbing in nature. Patient states nausea is associated with pain however denies any vomiting or abdominal pain. Patient complains of photophobia. Patient is status post kidney transplant from 2012. She has been taking all her medications as prescribed. However for the last 2 days she has unable to eat or drink anything except for her medication. Patient denies any trauma or falls precipitating a headache. Patient denies chest pain or shortness of breath. Patient states she is making urine adequately and does not have any dysuria or frequency. PFSH Past Medical History Hx Anticoagulant Therapy: Yes (WARFARIN) Anemia: Yes Asthma: Yes Blood Disorders: No Anxiety: Yes Depression: No Heart Rhythm Problems: Yes Cancer: No Cardiovascular Problems: Yes High Cholesterol: No Chemotherapy: No Chest Pain: Yes (ON AND OFF FOR A COUPLE MONTHS) Congestive Heart Failure: No COPD: No Diabetes: No Dialysis: Yes Diminished Hearing: No Deep Vein Thrombosis: Yes Endocrine: Yes (GLOMERLONEPHRITIS) Gastrointestinal Disorders: Yes (IBS) GERD: Yes Hypertension: Yes Immune Disorder: No Implanted Vascular Access Dvce: Yes Musculoskeletal: No Neurologic: No Psychiatric: Yes Reproductive: Yes (hemorrhagic cyst in the uterus ) Respiratory: Yes (ASTHMA) Immunizations Current: Yes Pneumonia: Yes Radiation Therapy: No Renal Failure: Yes (kidney transplant) Sleep Apnea: No ?: Not LMP: 05/05/17 Ovarian Cysts: Yes Past Surgical History Abdominal Surgery: Yes (PERITONEAL CATHETER PLACEMENT/REMOVAL) Body Medical Devices: USED TO HAVE A FISTULA Endocrine Surgery: Yes (KIDNEY TRANSPLANT X 2/PARATHYROIDECTOMY) Genitourinary Surgery: Yes (L kidney transplant 2012) Tonsillectomy: Yes Other Surgery: Yes (LYMPH NODE/LT ARM SHUNT REMOVAL) Social History Alcohol Use: Yes (OCCASIONAL) Tobacco Use: No Substance Use: No Allergies-Medications (Allergen,Severity, Reaction): Coded Allergies: enalaprilat (Unverified Allergy, Severe, Swelling, 05/31/17) losartan (Unverified Allergy, Severe, Swelling, 05/31/17) vancomycin (Unverified Allergy, Severe, Anaphylaxis, 05/31/17) Reported Meds & Prescriptions Reported Meds & Active Scripts Active Percocet (Oxycodone-Acetaminophen) 5-325 mg Tab 1-2 Tab PO Q4H PRN Lovenox Inj (Enoxaparin Sodium) 30 Mg/0.3 Ml Syr 30 Mg SQ DAILY Reglan (Metoclopramide HCl) 10 Mg Tab 10 Mg PO QID PRN Benadryl Allergy (Diphenhydramine HCl) 25 Mg Cap 1 Tab PO Q 6 HOUR Zofran (Ondansetron HCl) 4 Mg Tab 4 Mg PO Q6HR PRN Reported Prednisone 10 Mg Tab 10 Mg PO DAILY Calcitriol 0.25 Mcg Cap 0.25 Mcg PO BID Amlodipine (Amlodipine Besylate) 5 Mg Tab 5 Mg PO DAILY Famotidine 10 Mg Tab 10 Mg PO BID Tacrolimus 1 Mg Cap 4 Mg PO BID Warfarin 10 Mg Tab 10 Mg PO HS Lyrica (Pregabalin) 100 Mg Cap 100 Mg PO BID Percocet (Oxycodone-Acetaminophen) 10-325 mg Tab 1 Tab PO Q4H PRN Review of Systems Except as stated in HPI: all other systems reviewed are Neg HENT: Positive: Headaches Gastrointestinal: Positive: Nausea Musculoskeletal: Positive: Pain (left hand) Physical Exam Narrative GENERAL: 27-year-old female patient appearing older than her stated age and appearing painful and fatigued SKIN: Focused skin assessment warm/dry. HEAD: Atraumatic. Normocephalic. EYES: Pupils equal and round. No scleral icterus. No injection or drainage. Bilateral horizontal nystagmus noted. ENT: No nasal bleeding or discharge. Mucous membranes pink and dry. NECK: Trachea midline. No JVD. CARDIOVASCULAR: Regular rate and rhythm. No murmur appreciated. RESPIRATORY: No accessory muscle use. Clear to auscultation. Breath sounds equal bilaterally. GASTROINTESTINAL: Abdomen soft, non-tender, nondistended. Hepatic and splenic margins not palpable. MUSCULOSKELETAL: No obvious deformities. No clubbing. No cyanosis. No edema. NEUROLOGICAL: Awake and alert. No obvious cranial nerve deficits. Motor grossly within normal limits. Normal speech. No focal neurological deficit. PSYCHIATRIC: Appropriate mood and affect; insight and judgment normal. Data Data Last Documented VS Vital Signs Date Time Temp Pulse Resp B/P (MAP) Pulse Ox O2 Delivery O2 Flow Rate FiO2 05/31/17 22:37 99 14 134/93 (107) 100 05/31/17 20:33 99.2 Room Air Orders Orders Complete Blood Count With Diff (05/31/17 21:29) Comprehensive Metabolic Panel (05/31/17 21:29) Prothrombin Time / Inr (Pt) (05/31/17 21:29) Act Partial Throm Time (Ptt) (05/31/17 21:29) Ct Brain W/O Iv Contrast(Rout) (05/31/17 21:29) Ecg Monitoring (05/31/17 21:29) Iv Access Insert/Monitor (05/31/17 21:29) Oximetry (05/31/17 21:29) Sodium Chloride 0.9% Flush (Ns Flush) (05/31/17 21:30) Metoclopramide Inj (Reglan Inj) (05/31/17 21:30) Sodium Chlor 0.9% 1000 Ml Inj (Ns 1000 M (05/31/17 21:29) Dexamethasone Inj (Decadron Inj) (05/31/17 21:30) Diphenhydramine Inj (Benadryl Inj) (05/31/17 21:30) Sodium Chlor 0.9% 1000 Ml Inj (Ns 1000 M (05/31/17 21:30) Hand, Limited (2vws) (05/31/17 ) Potassium Chloride (Kcl) (05/31/17 23:00) Labs Laboratory Tests Test 05/31/17 21:40 White Blood Count 4.5 TH/MM3 Red Blood Count 4.15 MIL/MM3 Hemoglobin 12.4 GM/DL Hematocrit 37.3 % Mean Corpuscular Volume 89.9 FL Mean Corpuscular Hemoglobin 29.9 PG Mean Corpuscular Hemoglobin Concent 33.2 % Red Cell Distribution Width 13.9 % Platelet Count 222 TH/MM3 Mean Platelet Volume 8.8 FL Neutrophils (%) (Auto) 62.8 % Lymphocytes (%) (Auto) 26.8 % Monocytes (%) (Auto) 6.7 % Eosinophils (%) (Auto) 3.1 % Basophils (%) (Auto) 0.6 % Neutrophils # (Auto) 2.8 TH/MM3 Lymphocytes # (Auto) 1.2 TH/MM3 Monocytes # (Auto) 0.3 TH/MM3 Eosinophils # (Auto) 0.1 TH/MM3 Basophils # (Auto) 0.0 TH/MM3 CBC Comment DIFF FINAL Differential Comment Prothrombin Time 13.0 SEC Prothromb Time International Ratio 1.2 RATIO Activated Partial Thromboplast Time 28.2 SEC Blood Urea Nitrogen 11 MG/DL Creatinine 1.02 MG/DL Random Glucose 124 MG/DL Total Protein 8.5 GM/DL Albumin 3.8 GM/DL Calcium Level 7.9 MG/DL Alkaline Phosphatase 45 U/L Aspartate Amino Transf (AST/SGOT) 17 U/L Alanine Aminotransferase (ALT/SGPT) 13 U/L Total Bilirubin 0.7 MG/DL Sodium Level 135 MEQ/L Potassium Level 3.4 MEQ/L Chloride Level 104 MEQ/L Carbon Dioxide Level 22.9 MEQ/L Anion Gap 8 MEQ/L Estimat Glomerular Filtration Rate 79 ML/MIN [facility] Medical Decision Making Medical Screen Exam Complete: Yes Emergency Medical Condition: Yes Medical Record Reviewed: Yes Differential Diagnosis Cephalgia versus migraine versus sepsis versus urinary tract infection versus electrolyte abnormality versus dehydration Narrative Course 27-year-old female patient presents emergency department for evaluation of cephalgia that started 3 days ago. Patient is status post kidney transplant from 2012. Patient is currently still taking her immunosuppressive as prescribed. Patient has nausea associated with the headache and has been unable to eat or drink anything in the last 2 days except for her medication. Patient denies any abdominal pain , vomiting or diarrhea. Patient denies any chest pain or shortness breath. Patient states the pain is located on the posterior aspect of her head and is throbbing in nature. Patient is on blood thinner Coumadin. Patient denies any trauma or fall precipitating headache. Patient states a headboard fell on her left hand 2 days ago and she would like her hand evaluated while she is here. 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 No obvious deformity, no swelling to left hand. Active movement to left hand within normal limits. EKG, CBC, CMP, PT/INR, CT of the brain, x-ray of the left hand ordered and pending. Patient's cephalgia was treated with migraine cocktail including 1 L IV normal saline bolus, 10 mg IV dexamethasone, 25 mg IV Benadryl, 10 mg IV Reglan. PT care and disposition signed out to Dr Herrera. Please see her documentation for further details and disposition. EKG shows sinus rhythm with heart rate 99 CBC shows no acute abnormality CMP shows hyponatremia 135, hypokalemia at 3.4, calcium slightly decreased at 7.9 otherwise shows no acute abnormality PT/INR PT elevated at 13 but otherwise shows no acute abnormality CT BRAIN shows no acute abnormality LEFT HAND X-RAY shows no acute fracture or dislocation, osteoporosis Shakira Murillo May 31, 2017 21:44
[2017-05-31 22:08] LABS: AUTOMATED NEUTROPHIL # 2.8 TH/MM3 (1.8-7.7); BASOPHIL % 0.6 % (0.0-2.0); EOSINOPHIL # 0.1 TH/MM3 (0-0.4); EOSINOPHIL % 3.1 % (0.0-4.0); HEMATOCRIT 37.3 % (35.0-46.0); HEMO FLAGS DIFF FINAL; LYMPH % 26.8 % (9.0-44.0); LYMPHOCYTE # 1.2 TH/MM3 (1.0-4.8); MEAN CELL VOLUME 89.9 FL (80.0-100.0); MEAN CORPUSCULAR HEMOGLOBIN 29.9 PG (27.0-34.0); MEAN CORPUSCULAR HGB CONC 33.2 % (32.0-36.0); MONO % 6.7 % (0.0-8.0); NEUT % 62.8 % (16.0-70.0); PLATELET COUNT 222 TH/MM3 (150-450); RED BLOOD COUNT 4.15 MIL/MM3 (4.00-5.30); RED CELL DISTRIBUTION WIDTH 13.9 % (11.6-17.2); WHITE BLOOD COUNT 4.5 TH/MM3 (4.0-11.0)
--- NOTE | 2017-05-31 22:11 | RADRPT ---
EXAM DATE/TIME: 05/31/2017 22:00 [facility] COMPARISON: CT BRAIN W/O CONTRAST, January 02, 2017, 9:19. INDICATIONS : Patient complains of headache. RADIATION DOSE: 34.21 CTDIvol (mGy) MEDICAL HISTORY : Cardiovascular disease. Hypertension. Renal disease, end stage.dialysis SURGICAL HISTORY : left kidney transplant, peritoneal catheter, parathyroidectomy ENCOUNTER: Initial ACUITY: 1 day PAIN SCALE: 5/10 LOCATION: cranial TECHNIQUE: Multiple contiguous axial images were obtained of the head. Using automated exposure control and adj ustment of the mA and/or kV according to patient size, radiation dose was kept as low as reasonably a chievable to obtain optimal diagnostic quality images. DICOM format image data is available electro nically for review and comparison. FINDINGS: CEREBRUM: The ventricles are normal for age. No evidence of midline shift, mass lesion, hemorrhage or acute in farction. No extra-axial fluid collections are seen. POSTERIOR FOSSA: The cerebellum and brainstem are intact. The 4th ventricle is midline. The cerebellopontine angle i s unremarkable. EXTRACRANIAL: The visualized portion of the orbits is intact. SKULL: The calvaria is intact. No evidence of skull fracture. CONCLUSION: No acute disease. Misael Miller MD on May 31, 2017 at 22:09 Board Certified Radiologist. This report was verified electronically.
[2017-05-31 22:16] LABS: APTT (PATIENT) 28.2 SEC (24.3-30.1); INTERNATIONAL NORMALIZED RATIO 1.2 RATIO
[2017-05-31 22:31] LABS: ANION GAP 8 MEQ/L (5-15); AST (GOT) 17 U/L (15-37); BICARBONATE 22.9 MEQ/L (21.0-32.0); BLOOD UREA NITROGEN 11 MG/DL (7-18); CHLORIDE 104 MEQ/L (98-107); GLOMERULAR FILTRATION RATE 79 ML/MIN (>89); POTASSIUM 3.4 MEQ/L (3.5-5.1); SODIUM (NA) 135 MEQ/L (136-145)
[2017-05-31 22:33] LABS: ALT (GPT) 13 U/L (10-53)
[2017-05-31 22:35] LABS: ALKALINE PHOSPHATASE 45 U/L (45-117); TOTAL BILIRUBIN ADULT 0.7 MG/DL (0.2-1.0)
[2017-05-31 22:37] VITALS: BP 134/93; PULSE 99; RESP 14; O2SAT 100
--- NOTE | 2017-05-31 22:38 | RADRPT ---
EXAM DATE/TIME: 05/31/2017 22:07 [facility] COMPARISON: No previous studies available for comparison. INDICATIONS : Left hand, first and second metacarpal pain. MEDICAL HISTORY : Cardiovascular disease. Hypertension. Renal disease, end stage.dialysis, Left hand nerve damage SURGICAL HISTORY : Left kidney transplant, peritoneal catheter, parathyroidectomy ENCOUNTER: Initial ACUITY: 2 days PAIN SCORE: 6/10 LOCATION: Left upper extremity FINDINGS: Two view examination of the left hand demonstrates no soft tissue swelling, dislocation, or fracture. The joint spaces are maintained. Osteoporosis is noted. CONCLUSION: 1. No acute fracture or dislocation. 2. Osteoporosis. Misael Miller MD on May 31, 2017 at 22:27 Board Certified Radiologist. This report was verified electronically.
[2017-05-31] MEDS ORDERED: POTASSIUM CHLORIDE 10 MEQ CONTROLLED RELEASE TAB PO ONE (23:00)
--- NOTE | 2017-06-01 00:05 | PD ---
Physical Exam Date Seen by Provider: May 31, 2017 Data Data Last Documented VS Vital Signs Date Time Temp Pulse Resp B/P (MAP) Pulse Ox O2 Delivery O2 Flow Rate FiO2 05/31/17 22:37 99 14 134/93 (107) 100 05/31/17 20:33 99.2 Room Air Orders Orders Complete Blood Count With Diff (05/31/17 21:29) Comprehensive Metabolic Panel (05/31/17 21:29) Prothrombin Time / Inr (Pt) (05/31/17 21:29) Act Partial Throm Time (Ptt) (05/31/17 21:29) Ct Brain W/O Iv Contrast(Rout) (05/31/17 21:29) Ecg Monitoring (05/31/17 21:29) Iv Access Insert/Monitor (05/31/17 21:29) Oximetry (05/31/17 21:29) Sodium Chloride 0.9% Flush (Ns Flush) (05/31/17 21:30) Metoclopramide Inj (Reglan Inj) (05/31/17 21:30) Sodium Chlor 0.9% 1000 Ml Inj (Ns 1000 M (05/31/17 21:29) Dexamethasone Inj (Decadron Inj) (05/31/17 21:30) Diphenhydramine Inj (Benadryl Inj) (05/31/17 21:30) Sodium Chlor 0.9% 1000 Ml Inj (Ns 1000 M (05/31/17 21:30) Hand, Limited (2vws) (05/31/17 ) Potassium Chloride (Kcl) (05/31/17 23:00) Labs Laboratory Tests Test 05/31/17 21:40 White Blood Count 4.5 TH/MM3 Red Blood Count 4.15 MIL/MM3 Hemoglobin 12.4 GM/DL Hematocrit 37.3 % Mean Corpuscular Volume 89.9 FL Mean Corpuscular Hemoglobin 29.9 PG Mean Corpuscular Hemoglobin Concent 33.2 % Red Cell Distribution Width 13.9 % Platelet Count 222 TH/MM3 Mean Platelet Volume 8.8 FL Neutrophils (%) (Auto) 62.8 % Lymphocytes (%) (Auto) 26.8 % Monocytes (%) (Auto) 6.7 % Eosinophils (%) (Auto) 3.1 % Basophils (%) (Auto) 0.6 % Neutrophils # (Auto) 2.8 TH/MM3 Lymphocytes # (Auto) 1.2 TH/MM3 Monocytes # (Auto) 0.3 TH/MM3 Eosinophils # (Auto) 0.1 TH/MM3 Basophils # (Auto) 0.0 TH/MM3 CBC Comment DIFF FINAL Differential Comment Prothrombin Time 13.0 SEC Prothromb Time International Ratio 1.2 RATIO Activated Partial Thromboplast Time 28.2 SEC Blood Urea Nitrogen 11 MG/DL Creatinine 1.02 MG/DL Random Glucose 124 MG/DL Total Protein 8.5 GM/DL Albumin 3.8 GM/DL Calcium Level 7.9 MG/DL Alkaline Phosphatase 45 U/L Aspartate Amino Transf (AST/SGOT) 17 U/L Alanine Aminotransferase (ALT/SGPT) 13 U/L Total Bilirubin 0.7 MG/DL Sodium Level 135 MEQ/L Potassium Level 3.4 MEQ/L Chloride Level 104 MEQ/L Carbon Dioxide Level 22.9 MEQ/L Anion Gap 8 MEQ/L Estimat Glomerular Filtration Rate 79 ML/MIN MDM Medical Record Reviewed: Yes Supervised Visit with TITO: Yes Narrative Course I, Dr. Herrera, have reviewed the advance practice practitioner's documentation and am in agreement, met with the patient face to face, made the diagnosis, and the medical decision making was done by me. *My assessment and Findings: Cephalgia and left hand contusion Patient is a 27-year-old female who presents to emergency room with complaints of headache for the past 3 days. Patient reports that headache is posterior in nature, reports that she has been having nausea vomiting with symptoms. Patient reports that she has photophobia with her headache. Reports that she has not been able to eat or drink anything in the past 3 days due to her headache. Patient denies any fevers or chills. Reports that this is not the worst headache of her life. Denies thunderclap headache. Patient with normal neurological exam on evaluation. CT of the head was ordered , patient with no acute intracranial process. Patient was given migraine cocktail, she was also given IV fluids. Upon reevaluation of patient, patient with complete resolution of symptoms at this time. Patient is able to drink fluids without any difficulty or nausea while in the emergency room. Patient complained of pain to her left hand as she had an object fall on it. X-ray of the left hand was negative for any acute fractures. Patient requesting a prescription for narcotic pain medications for her hand pain. She has a follow- up appointment with her primary care doctor on Tuesday - she will call for an earlier appointment. Signs and symptoms of when to return to the ER was reviewed with patient in detail. She will return to ER as needed. Patient thankful for care Diagnosis Primary Impression: Cephalgia Qualified Codes: R51 - Headache Additional Impressions: Dehydration Hand contusion Qualified Codes: S60.222A - Contusion of left hand, initial encounter Patient Instructions: General Instructions Departure Forms: Tests/Procedures, Work Release Enter return to work date: Jun 02, 2017 Additional Instruction: Please follow up with your primary care doctor in 24-48 hours Return to ER as needed or if symptoms return Please do not drive while taking narcotic pain medications Med/Other Pt SpecificInfo: Prescription(s) given Scripts Oxycodone-Acetaminophen (Percocet) 5-325 mg Tab 1 TAB PO Q6H Y for PAIN, #7 TAB 0 Refills Prov: Keisha Herrera DO 06/01/17 Disposition: 01 DISCHARGE HOME Condition: Stable Keisha Herrera DO Jun 01, 2017 00:05
[2017-06-01] MEDS ORDERED: PERC5TAB12 PO (00:10)
[2017-06-01 00:34] VITALS: BP 132/89
--- NOTE | 2017-06-01 20:49 | EKG ---
Date Performed: 05/31/2017 Time Performed: 21:35:42 PTAGE: 27 years EKG: Sinus rhythm NONSPECIFIC T-WAVE ABNORMALITY BORDERLINE ECG PREVIOUS TRACING : 02/18/2017 14.04 Compared to prior tracing no significant change DOCTOR: Herbie Lee Interpretating Date/Time 06/01/2017 20:45:29
== END 2017-06-01 00:54 | disposition home or self-care (01) ==
LOC: NEPC 20:32
DX: R51 Headache (principal); E86.0 Dehydration; S60.222A Contusion of left hand, initial encounter; W20.8XXA Other cause of strike by thrown, projected or falling object, initial encounter; I10 Essential (primary) hypertension; Z86.718 Personal history of other venous thrombosis and embolism; Z79.01 Long term (current) use of anticoagulants; Z94.0 Kidney transplant status; D64.9 Anemia, unspecified
CPT/HCPCS: 70450; 73120; 80053; 85025; 85610; 85730; 93005; 96374; 96375; 99285; J1100; J1200; J2765; J7030

== ENCOUNTER 2017-06-07 20:00 | Emergency (ER) | payer MEDICARE, BC, OTHER ==
[~2017-06-07] VITALS: Ht 165.1 cm; Wt 86.0 kg
[~2017-06-07 20:00] MED LIST changes: -ENOX30P SQ
[2017-06-07 20:02] VITALS: BP 139/104; PULSE 105; RESP 16; TEMP 99.1; O2SAT 97
== END 2017-06-07 21:20 | disposition left against medical advice (07) ==
LOC: NED 20:00
DX: N23 Unspecified renal colic (principal); Z53.21 Procedure and treatment not carried out due to patient leaving prior to being seen by health care provider
CPT/HCPCS: 99281

== ENCOUNTER 2017-06-16 07:44 | Emergency (ER) | payer MEDICARE, BC, OTHER ==
[~2017-06-16] VITALS: Ht 165.1 cm; Wt 90.0 kg
[2017-06-16 08:01] VITALS: BP 142/87; PULSE 108; PULSE 118; RESP 18; TEMP 98.7; O2SAT 97
[2017-06-16] MEDS ORDERED: SODIUM CHLOR 0.9% 1000 ML INJ 1,000 ML IV ONE (08:45)
[2017-06-16] MEDS ORDERED: ONDANSETRON HCL 4 MG/2 ML VIAL IV PUSH ONE (08:45)
[2017-06-16] MEDS ORDERED: MORPHINE SULFATE 4 MG/ML INJ IV PUSH ONE (09:00)
[2017-06-16 09:09] VITALS: RESP 18; O2SAT 98
[2017-06-16 09:10] VITALS: PULSE 87; RESP 18; O2SAT 98
[2017-06-16 09:18] LABS: AUTOMATED NEUTROPHIL # 4.5 TH/MM3 (1.8-7.7); BASOPHIL % 0.2 % (0.0-2.0); EOSINOPHIL # 0.2 TH/MM3 (0-0.4); EOSINOPHIL % 3.2 % (0.0-4.0); HEMATOCRIT 35.4 % (35.0-46.0); HEMO FLAGS DIFF FINAL; LYMPH % 14.9 % (9.0-44.0); LYMPHOCYTE # 0.9 TH/MM3 (1.0-4.8); MEAN CORPUSCULAR HEMOGLOBIN 30.5 PG (27.0-34.0); MEAN CORPUSCULAR HGB CONC 33.1 % (32.0-36.0); MONO % 8.4 % (0.0-8.0); NEUT % 73.3 % (16.0-70.0); PLATELET COUNT 200 TH/MM3 (150-450); RED BLOOD COUNT 3.85 MIL/MM3 (4.00-5.30); RED CELL DISTRIBUTION WIDTH 13.6 % (11.6-17.2); WHITE BLOOD COUNT 6.1 TH/MM3 (4.0-11.0)
[2017-06-16 09:28] LABS: APTT (PATIENT) 27.5 SEC (24.3-30.1); PROTHROMBIN TIME - PATIENT 11.1 SEC (9.8-11.6)
--- NOTE | 2017-06-16 09:30 | RADRPT ---
EXAM DATE/TIME: 06/16/2017 09:20 [facility] COMPARISON: CHEST SINGLE AP, February 18, 2017, 13:54. INDICATIONS : Vomiting. MEDICAL HISTORY : asthma SURGICAL HISTORY : cervical spine surgery 2011 ENCOUNTER: Initial ACUITY: 1 day PAIN SCORE: 0/10 LOCATION: Bilateral chest FINDINGS: A single view of the chest demonstrates the lungs to be symmetrically aerated without evidence of mas s, infiltrate or effusion. The cardiomediastinal contours are unremarkable. Osseous structures are intact. The there is no evidence of free air. Postsurgical changes are again noted in the lower cervi santiago spine. CONCLUSION: No acute disease. Joseph Vaca MD on June 16, 2017 at 9:29 Board Certified Radiologist. This report was verified electronically.
[2017-06-16 09:31] LABS: BACTERIA, URINE RARE /hpf; BLOOD, URINE NEG (NEG); COMMENT (UR) CULT NOT INDICATED; CULTURE IF INDICATED CULT NOT INDICATED; GLUCOSE,URINE NEG (NEG); HYALINE CAST, URINE 1 /lpf (RARE); KETONE, URINE NEG (NEG); MUCUS URINE FEW /lpf (OCC); NITRITE,URINE NEG (NEG); SQUAMOUS EPITHELIAL CELL URINE 40 /hpf (0-5); URINE COLOR YELLOW (YELLW/STRAW)
[2017-06-16 09:42] LABS: BICARBONATE 24.9 MEQ/L (21.0-32.0); MAGNESIUM 1.4 MG/DL (1.5-2.5); TOTAL BILIRUBIN ADULT 0.5 MG/DL (0.2-1.0)
[2017-06-16 09:45] LABS: POTASSIUM 3.7 MEQ/L (3.5-5.1)
[2017-06-16 09:50] LABS: CALCIUM-PROTEIN CORRECTED 6.8 MG/DL (8.5-10.1)
--- NOTE | 2017-06-16 09:50 | PD ---
HPI Chief Complaint: Abdominal Pain Time Seen by Provider: 08:30 Travel History International Travel<30 days: No Contact w/Intl Traveler<30days: No Traveled to known affect area: No History of Present Illness HPI This is a 27-year-old female with a history of renal transplant, presents today with complaints of abdominal pain with nausea vomiting diarrhea. Patient denies any fevers, chills. There is no suspicious foods. The patient denies any urinary symptoms. She reports her baseline creatinine is roughly 1.3. She reports pain is general abdominal. She reports it as crampy. She is somewhat tearful and concerned as she's never had this since her transplant. She reports taking all of her medications as prescribed. PFSH Past Medical History Hx Anticoagulant Therapy: Yes (WARFARIN) Anemia: Yes Asthma: Yes Blood Disorders: No Anxiety: Yes Depression: No Heart Rhythm Problems: Yes Cancer: No Cardiovascular Problems: Yes High Cholesterol: No Chemotherapy: No Chest Pain: Yes (ON AND OFF FOR A COUPLE MONTHS) Congestive Heart Failure: No COPD: No Diabetes: No Dialysis: Yes (2012) Diminished Hearing: No Deep Vein Thrombosis: Yes Endocrine: Yes (GLOMERLONEPHRITIS) Gastrointestinal Disorders: Yes (IBS) GERD: Yes Genitourinary: Yes (Kidney transplant in 2012, previously on dialysis) Hypertension: Yes Immune Disorder: No Implanted Vascular Access Dvce: Yes Musculoskeletal: No Neurologic: No Psychiatric: Yes Reproductive: Yes (hemorrhagic cyst in the uterus ) Respiratory: Yes (hx of PE's in 2014 and 2010) Immunizations Current: Yes Migraines: Yes Pneumonia: Yes Radiation Therapy: No Renal Failure: Yes Sleep Apnea: No ?: Not Ovarian Cysts: Yes Past Surgical History Abdominal Surgery: Yes (PERITONEAL CATHETER PLACEMENT/REMOVAL) Body Medical Devices: USED TO HAVE A FISTULA Endocrine Surgery: Yes (KIDNEY TRANSPLANT X 2/PARATHYROIDECTOMY) Genitourinary Surgery: Yes (bilateral kidneys transplant) Neurologic Surgery: Yes Tonsillectomy: Yes Other Surgery: Yes (Left arm AV fistula(REMOVED") Social History Alcohol Use: No Tobacco Use: No Substance Use: No Allergies-Medications (Allergen,Severity, Reaction): Coded Allergies: enalaprilat (Unverified Allergy, Severe, Swelling, 06/07/17) losartan (Unverified Allergy, Severe, Swelling, 06/07/17) vancomycin (Unverified Allergy, Severe, Anaphylaxis, 06/07/17) Reported Meds & Prescriptions Reported Meds & Active Scripts Active Metoclopramide (Metoclopramide HCl) 10 Mg Tab 10 Mg PO QID Bentyl (Dicyclomine HCl) 10 Mg Cap 10 Mg PO TID PRN Percocet (Oxycodone-Acetaminophen) 5-325 mg Tab 1 Tab PO Q6H PRN Benadryl Allergy (Diphenhydramine HCl) 25 Mg Cap 1 Tab PO Q 6 HOUR Reported Prednisone 10 Mg Tab 10 Mg PO DAILY Calcitriol 0.25 Mcg Cap 0.25 Mcg PO BID Amlodipine (Amlodipine Besylate) 5 Mg Tab 5 Mg PO DAILY Famotidine 10 Mg Tab 10 Mg PO BID Tacrolimus 1 Mg Cap 4 Mg PO BID Warfarin 10 Mg Tab 10 Mg PO HS Lyrica (Pregabalin) 100 Mg Cap 100 Mg PO BID Percocet (Oxycodone-Acetaminophen) 10-325 mg Tab 1 Tab PO Q4H PRN Review of Systems Except as stated in HPI: all other systems reviewed are Neg General / Constitutional: No: Fever, Chills HENT: No: Headaches, Neck Stiffness, Neck Pain Cardiovascular: No: Chest Pain or Discomfort, Palpitations Respiratory: No: Cough, Shortness of Breath Gastrointestinal: Positive: Nausea, Vomiting, Diarrhea, Abdominal Pain Genitourinary: No: Dysuria, Hematuria, Decreased Urinary Output Musculoskeletal: No: Weakness, Pain Neurologic: No: Weakness, Dizziness, Headache Physical Exam Narrative GENERAL: Well-developed well-nourished female in no acute distress. SKIN: Focused skin assessment warm/dry. HEAD: Atraumatic. Normocephalic. EYES: No scleral icterus. No injection or drainage. ENT: No nasal bleeding or discharge. Mucous membranes pink and moist. NECK: Trachea midline. Supple. CARDIOVASCULAR: Regular rate and rhythm. No murmur appreciated. RESPIRATORY: No accessory muscle use. Clear to auscultation. Breath sounds equal bilaterally. GASTROINTESTINAL: Abdomen soft, non-tender, nondistended. No rebound or guarding. Patient had subjective crampy discomfort. MUSCULOSKELETAL: No obvious deformities. No clubbing. No cyanosis. No edema. NEUROLOGICAL: Awake and alert. No obvious cranial nerve deficits. Motor grossly within normal limits. Normal speech. Data Data Last Documented VS Vital Signs Date Time Temp Pulse Resp B/P (MAP) Pulse Ox O2 Delivery O2 Flow Rate FiO2 06/16/17 09:10 87 18 98 Room Air 06/16/17 08:01 98.7 Orders Orders Complete Blood Count With Diff (06/16/17 08:43) Comprehensive Metabolic Panel (06/16/17 08:43) Lipase (06/16/17 08:43) Urinalysis - C+S If Indicated (06/16/17 08:43) Magnesium (Mg) (06/16/17 08:43) Phosphorus (Po4) (06/16/17 08:43) Chest, Single Ap (06/16/17 08:43) Iv Access Insert/Monitor (06/16/17 08:43) Ecg Monitoring (06/16/17 08:43) Oximetry (06/16/17 08:43) Group A Rapid Strep Screen (06/16/17 08:43) Ondansetron Inj (Zofran Inj) (06/16/17 08:45) Ed Urine Pregnancytest Poc (06/16/17 08:43) Sodium Chlor 0.9% 1000 Ml Inj (Ns 1000 M (06/16/17 08:45) Blood Culture (06/16/17 08:43) Prothrombin Time / Inr (Pt) (06/16/17 08:50) Act Partial Throm Time (Ptt) (06/16/17 08:50) Morphine Inj (Morphine Inj) (06/16/17 09:00) Strep Culture (Group A) (06/16/17 09:00) Labs Laboratory Tests Test 06/16/17 09:00 White Blood Count 6.1 TH/MM3 Red Blood Count 3.85 MIL/MM3 Hemoglobin 11.7 GM/DL Hematocrit 35.4 % Mean Corpuscular Volume 92.0 FL Mean Corpuscular Hemoglobin 30.5 PG Mean Corpuscular Hemoglobin Concent 33.1 % Red Cell Distribution Width 13.6 % Platelet Count 200 TH/MM3 Mean Platelet Volume 9.6 FL Neutrophils (%) (Auto) 73.3 % Lymphocytes (%) (Auto) 14.9 % Monocytes (%) (Auto) 8.4 % Eosinophils (%) (Auto) 3.2 % Basophils (%) (Auto) 0.2 % Neutrophils # (Auto) 4.5 TH/MM3 Lymphocytes # (Auto) 0.9 TH/MM3 Monocytes # (Auto) 0.5 TH/MM3 Eosinophils # (Auto) 0.2 TH/MM3 Basophils # (Auto) 0.0 TH/MM3 CBC Comment DIFF FINAL Differential Comment Prothrombin Time 11.1 SEC Prothromb Time International Ratio 1.0 RATIO Activated Partial Thromboplast Time 27.5 SEC Urine Color YELLOW Urine Turbidity HAZY Urine pH 6.0 Urine Specific [place] 1.032 Urine Protein 100 mg/dL Urine Glucose (UA) NEG mg/dL Urine Ketones NEG mg/dL Urine Occult Blood NEG Urine Nitrite NEG Urine Bilirubin NEG Urine Urobilinogen LESS THAN 2.0 MG/DL Urine Leukocyte Esterase NEG Urine RBC 2 /hpf Urine WBC 4 /hpf Urine Squamous Epithelial Cells 40 /hpf Urine Bacteria RARE /hpf Urine Hyaline Casts 1 /lpf Urine Mucus FEW /lpf Microscopic Urinalysis Comment CULT NOT INDICATED Blood Urea Nitrogen 7 MG/DL Creatinine 0.97 MG/DL Random Glucose 106 MG/DL Total Protein 7.4 GM/DL Albumin 3.6 GM/DL Calcium Level 6.9 MG/DL Phosphorus Level 3.8 MG/DL Magnesium Level 1.4 MG/DL Alkaline Phosphatase 40 U/L Aspartate Amino Transf (AST/SGOT) 32 U/L Alanine Aminotransferase (ALT/SGPT) 15 U/L Total Bilirubin 0.5 MG/DL Sodium Level 137 MEQ/L Potassium Level 3.7 MEQ/L Chloride Level 102 MEQ/L Carbon Dioxide Level 24.9 MEQ/L Anion Gap 10 MEQ/L Estimat Glomerular Filtration Rate 83 ML/MIN Protein Corrected Calcium 6.8 MG/DL Lipase 321 U/L [facility] Medical Decision Making Medical Screen Exam Complete: Yes Emergency Medical Condition: Yes Differential Diagnosis Viral gastroenteritis versus bacterial gastroenteritis versus metabolic arrangement. Narrative Course 27-year-old female with history of renal transplant, presents with nausea vomiting diarrhea. Patient also reports sore throat. Strep culture is negative for acute strep. By threshold for strep throat is low at this time. Patient is not febrile. Laboratory tests other than a protein corrected calcium of 6.8 or within normal limits. Creatinine was less than 1. Patient's been given IV hydration. She feels much improved. She's been discharged with a prescription for Bentyl and Reglan. 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 She is in structure to return if she does any worsening symptoms i.e. fevers, chills, worsening symptoms, or any other reason the concerns her. Diagnosis Primary Impression: Nausea vomiting and diarrhea Additional Impressions: Sore throat Renal transplant, status post Hypocalcemia Additional Instructions: Call your nephrologists and make him aware of your protein corrected calcium of 6.8. Return as needed. Med/Other Pt SpecificInfo: Prescription(s) given Scripts Metoclopramide (Metoclopramide) 10 Mg Tab 10 MG PO QID, #20 TAB 0 Refills Prov: Shashi Villar MD 06/16/17 Dicyclomine (Bentyl) 10 Mg Cap 10 MG PO TID Y for Bowel Management, #10 CAP 0 Refills Prov: Shashi Villar MD 06/16/17 Disposition: 01 DISCHARGE HOME Condition: Stable Shashi Villar MD Jun 16, 2017 09:50
[2017-06-16] MEDS ORDERED: METO10TA PO (11:47)
[2017-06-16] MEDS ORDERED: DICY10 PO (11:47)
== END 2017-06-16 12:44 | disposition home or self-care (01) ==
LOC: NEPE 07:44
DX: R11.2 Nausea with vomiting, unspecified (principal); J02.9 Acute pharyngitis, unspecified; Z94.0 Kidney transplant status; E83.51 Hypocalcemia; R19.7 Diarrhea, unspecified; R10.9 Unspecified abdominal pain; D64.9 Anemia, unspecified; J45.909 Unspecified asthma, uncomplicated; I10 Essential (primary) hypertension; Z79.01 Long term (current) use of anticoagulants
CPT/HCPCS: 71010; 80053; 81001; 83690; 83735; 84100; 84703; 85025; 85610; 85730; 87040; 87081; 87880; 96361; 96374; 96375; 99284; J2270; J2405; J7030

== ENCOUNTER 2017-06-17 06:24 | Inpatient (IN) | payer MEDICARE, BC, OTHER ==
[~2017-06-17] VITALS: Ht 165.1 cm; Wt 86.0 kg
[2017-06-17] VITALS (7 sets, daily range): BP systolic 90–139; BP diastolic 50–82; PULSE 73–110; RESP 16–20; TEMP 96.6–97.9; O2SAT 96–100
[~2017-06-17 06:24] MED LIST changes: +DICY10 PO; +METO10TA PO; -REGL10TA5 PO; -ZOFR4TAB PO
[2017-06-17] MEDS ORDERED: SODIUM CHLOR 0.9% 1000 ML INJ 1,000 ML IV SCH (06:35)
[2017-06-17] MEDS ORDERED: ONDANSETRON HCL 4 MG/2 ML VIAL IVP ONE (06:45)
[2017-06-17] MEDS ORDERED: SODIUM CHLORIDE 0.9% FLUSH 10 ML FLUSH IV FLUSH PRN ×2 (06:45→10:30)
[2017-06-17 07:09] LABS: AUTOMATED NEUTROPHIL # 2.7 TH/MM3 (1.8-7.7); BASOPHIL % 0.3 % (0.0-2.0); EOSINOPHIL # 0.6 TH/MM3 (0-0.4); EOSINOPHIL % 11.2 % (0.0-4.0); HEMATOCRIT 35.9 % (35.0-46.0); HEMO FLAGS DIFF FINAL; LYMPH % 31.7 % (9.0-44.0); LYMPHOCYTE # 1.8 TH/MM3 (1.0-4.8); MEAN CELL VOLUME 92.4 FL (80.0-100.0); MEAN CORPUSCULAR HEMOGLOBIN 30.6 PG (27.0-34.0); MEAN CORPUSCULAR HGB CONC 33.1 % (32.0-36.0); MONO % 8.6 % (0.0-8.0); NEUT % 48.2 % (16.0-70.0); PLATELET COUNT 250 TH/MM3 (150-450); RED BLOOD COUNT 3.88 MIL/MM3 (4.00-5.30); RED CELL DISTRIBUTION WIDTH 13.9 % (11.6-17.2); WHITE BLOOD COUNT 5.6 TH/MM3 (4.0-11.0)
[2017-06-17 07:34] LABS: POTASSIUM 3.8 MEQ/L (3.5-5.1); TOTAL BILIRUBIN ADULT 0.3 MG/DL (0.2-1.0)
--- NOTE | 2017-06-17 07:51 | PD ---
HPI Chief Complaint: GI Complaint Time Seen by Provider: 07:46 Travel History International Travel<30 days: No Contact w/Intl Traveler<30days: No Traveled to known affect area: No History of Present Illness HPI This is a 27-year-old female with a history of renal transplant, who presents today for the second in a row with GI related nausea, vomiting and diarrhea. The patient states that it started 2 days ago. She was seen yesterday and evaluated and given I V fluids. She states she felt better at that time however last night the diarrhea came on more frequent with associated abdominal cramps. As no reported fevers, chills. No reported nausea vomiting. There are no other complaints time of my examination. PFSH Past Medical History Hx Anticoagulant Therapy: Yes (Warfarin) Anemia: Yes Asthma: Yes Blood Disorders: No Anxiety: Yes Depression: No Heart Rhythm Problems: Yes Cancer: No Cardiovascular Problems: Yes (arrythmia) High Cholesterol: No Chemotherapy: No Chest Pain: Yes Congestive Heart Failure: No COPD: No Diabetes: No Dialysis: Yes (2012) Diminished Hearing: No Deep Vein Thrombosis: Yes Endocrine: Yes (GLOMERLONEPHRITIS) Gastrointestinal Disorders: Yes (IBS) GERD: Yes Genitourinary: Yes (Kidney transplant in 2013, previously on dialysis) Hypertension: Yes Immune Disorder: No Implanted Vascular Access Dvce: Yes Musculoskeletal: No Neurologic: No Psychiatric: Yes Reproductive: Yes (hemorrhagic cyst in the uterus ) Respiratory: Yes (asthma) Immunizations Current: Yes Migraines: Yes Pneumonia: Yes Radiation Therapy: No Renal Failure: Yes Sleep Apnea: No Thyroid Disease: Yes (parathyroidectomy ) Tetanus Vaccination: < 5 Years Influenza Vaccination: Yes ?: Not LMP: 06/13/17 Ovarian Cysts: Yes Past Surgical History Abdominal Surgery: Yes (PERITONEAL CATHETER PLACEMENT/REMOVAL) Body Medical Devices: USED TO HAVE A FISTULA Endocrine Surgery: Yes (KIDNEY TRANSPLANT X 2/PARATHYROIDECTOMY) Genitourinary Surgery: Yes (bilateral kidneys transplant) Neurologic Surgery: Yes Tonsillectomy: Yes Other Surgery: Yes (Left arm AV fistula(REMOVED") Social History Alcohol Use: No Tobacco Use: No Substance Use: No Allergies-Medications (Allergen,Severity, Reaction): Coded Allergies: enalaprilat (Unverified Allergy, Severe, Swelling, 06/17/17) losartan (Unverified Allergy, Severe, Swelling, 06/17/17) vancomycin (Unverified Allergy, Severe, Anaphylaxis, 06/17/17) Reported Meds & Prescriptions Reported Meds & Active Scripts Active Metoclopramide (Metoclopramide HCl) 10 Mg Tab 10 Mg PO QID Bentyl (Dicyclomine HCl) 10 Mg Cap 10 Mg PO TID PRN Percocet (Oxycodone-Acetaminophen) 5-325 mg Tab 1 Tab PO Q6H PRN Benadryl Allergy (Diphenhydramine HCl) 25 Mg Cap 1 Tab PO Q 6 HOUR Reported Prednisone 10 Mg Tab 10 Mg PO DAILY Calcitriol 0.25 Mcg Cap 0.25 Mcg PO BID Amlodipine (Amlodipine Besylate) 5 Mg Tab 5 Mg PO DAILY Famotidine 10 Mg Tab 10 Mg PO BID Tacrolimus 1 Mg Cap 4 Mg PO BID Warfarin 10 Mg Tab 10 Mg PO HS Lyrica (Pregabalin) 100 Mg Cap 100 Mg PO BID Percocet (Oxycodone-Acetaminophen) 10-325 mg Tab 1 Tab PO Q4H PRN Review of Systems Except as stated in HPI: all other systems reviewed are Neg General / Constitutional: No: Fever, Chills HENT: No: Headaches, Lightheadedness Cardiovascular: No: Chest Pain or Discomfort, Palpitations Respiratory: No: Shortness of Breath Gastrointestinal: Positive: Nausea, Vomiting, Diarrhea, Abdominal Pain (crampy) , No: Hematochezia Genitourinary: No: Frequency, Dysuria Musculoskeletal: No: Weakness, Pain Neurologic: No: Weakness, Dizziness Physical Exam Narrative GENERAL: Well-nourished female complaining of abdominal cramps. SKIN: Focused skin assessment warm/dry. HEAD: Atraumatic. Normocephalic. EYES: . No scleral icterus. No injection or drainage. ENT: No nasal bleeding or discharge. Mucous membranes pink and moist. NECK: Trachea midline. No JVD. CARDIOVASCULAR: Tachycardic. No murmur appreciated. RESPIRATORY: No accessory muscle use. Clear to auscultation. Breath sounds equal bilaterally. GASTROINTESTINAL: Abdomen soft, nondistended. She had subjective cramps in the lower abdominal area. No rebound or guarding. MUSCULOSKELETAL: No obvious deformities. No clubbing. No cyanosis. No edema. NEUROLOGICAL: Awake and alert. No obvious cranial nerve deficits. Motor grossly within normal limits. Normal speech. Data Data Last Documented VS Vital Signs Date Time Temp Pulse Resp B/P (MAP) Pulse Ox O2 Delivery O2 Flow Rate FiO2 06/17/17 09:17 97.9 77 17 101/66 (78) 99 Room Air Orders Orders Complete Blood Count With Diff (06/17/17 06:35) Comprehensive Metabolic Panel (06/17/17 06:35) Lipase (06/17/17 06:35) Urinalysis - C+S If Indicated (06/17/17 06:35) Iv Access Insert/Monitor (06/17/17 06:35) Ondansetron Inj (Zofran Inj) (06/17/17 06:45) Sodium Chlor 0.9% 1000 Ml Inj (Ns 1000 M (06/17/17 06:35) Sodium Chloride 0.9% Flush (Ns Flush) (06/17/17 06:45) Ed Urine Pregnancytest Poc (06/17/17 06:35) C Diff Toxin Pcr (06/17/17 07:46) Enteric Path (Stool) (06/17/17 07:46) Morphine Inj (Morphine Inj) (06/17/17 08:00) Labs Laboratory Tests Test 06/17/17 06:55 06/17/17 07:11 White Blood Count 5.6 TH/MM3 Red Blood Count 3.88 MIL/MM3 Hemoglobin 11.9 GM/DL Hematocrit 35.9 % Mean Corpuscular Volume 92.4 FL Mean Corpuscular Hemoglobin 30.6 PG Mean Corpuscular Hemoglobin Concent 33.1 % Red Cell Distribution Width 13.9 % Platelet Count 250 TH/MM3 Mean Platelet Volume 9.2 FL Neutrophils (%) (Auto) 48.2 % Lymphocytes (%) (Auto) 31.7 % Monocytes (%) (Auto) 8.6 % Eosinophils (%) (Auto) 11.2 % Basophils (%) (Auto) 0.3 % Neutrophils # (Auto) 2.7 TH/MM3 Lymphocytes # (Auto) 1.8 TH/MM3 Monocytes # (Auto) 0.5 TH/MM3 Eosinophils # (Auto) 0.6 TH/MM3 Basophils # (Auto) 0.0 TH/MM3 CBC Comment DIFF FINAL Differential Comment Blood Urea Nitrogen 7 MG/DL Creatinine 1.67 MG/DL Random Glucose 93 MG/DL Total Protein 8.7 GM/DL Albumin 3.9 GM/DL Calcium Level 7.0 MG/DL Alkaline Phosphatase 46 U/L Aspartate Amino Transf (AST/SGOT) 22 U/L Alanine Aminotransferase (ALT/SGPT) 17 U/L Total Bilirubin 0.3 MG/DL Sodium Level 145 MEQ/L Potassium Level 3.8 MEQ/L Chloride Level 112 MEQ/L Carbon Dioxide Level 26.0 MEQ/L Anion Gap 7 MEQ/L Estimat Glomerular Filtration Rate 45 ML/MIN Protein Corrected Calcium MG/DL Lipase 152 U/L [facility] Medical Decision Making Medical Screen Exam Complete: Yes Emergency Medical Condition: Yes Differential Diagnosis Food related diarrhea versus viral infectious diarrhea versus C. difficile Narrative Course [age]-year-old female with a history of renal transplant, presents today with complaints of continued nausea vomiting diarrhea. The patient was seen yesterday for nausea and diarrhea. She had been given I V fluids, antispasmodics and pain medications and felt better. She was discharged with a prescription for Bentyl and Reglan. She presents today with worsening symptoms. Her creatinine yesterday was 0.97. Today at 1.67. Given this and her history of renal transplant, the patient will be admitted to the hospital for I V hydration and nausea and pain control. Stool has been sent off for enteric pathogens as well as C. difficile. This is pending at this time. There is a call out to the [facility] for admission. Diagnosis Primary Impression: Intractable nausea and vomiting Additional Impressions: Diarrhea Acute kidney injury History of renal transplant Admitting Information Admitting Physician Requests: Admit Shashi Villar MD Jun 17, 2017 07:51
[2017-06-17] MEDS ORDERED: MORPHINE SULFATE 4 MG/ML INJ IV PUSH ONE (08:00)
[2017-06-17] MEDS ORDERED: MAGNESIUM HYDROXIDE SUSP 30 ML CUP PO PRN (10:30)
[2017-06-17] MEDS ORDERED: SENNOSIDES 8.6 MG TAB PO PRN (10:30)
[2017-06-17] MEDS ORDERED: LACTULOSE SYRUP 20 GM/30 ML CUP PO PRN (10:30)
[2017-06-17] MEDS ORDERED: NALOXONE HCL 0.4 MG/ML AMP IV PUSH PRN (10:30)
[2017-06-17] MEDS ORDERED: BISACODYL 10 MG SUPP RECTAL PRN (10:30)
[2017-06-17 10:32] LABS: C. DIFF EPI 027 PRESUMPTIVE NEGATIVE (NEGATIVE)
[2017-06-17] MEDS: SODIUM CHLOR 0.9% 1000 ML INJ 1,000 ML IV SCH ×3 (10:35→22:00)
[2017-06-17] MEDS: ACETAMINOPHEN 325 MG TAB PO PRN ×2 (11:09→17:45)
--- NOTE | 2017-06-17 14:44 | HHI.HP ---
[facility]ician Unknown Admission Diagnosis intractable nausea/vomiting, acute kidney injury, renal transplant Diagnoses: Chief Complaint: Nausea vomiting worsening, worsening abdominal pain Travel History International Travel<30 Days: No Contact w/Intl Traveler <30 Da: No Traveled to Known Affected Are: No History of Present Illness Written by Anthony Jo, acting as scribe for Dr. Altamirano on 06/17/17 at 14:45. Patient is a 27-year-old female with primary medical history of HTN, asthma, GERD, anemia, history of blood clots, status post kidney transplant who came into the hospital for evaluation of worsening nausea vomiting, worsening abdominal pain. Patient states that it started about 2 days ago she had nausea, vomiting, diarrhea. States that she has abdominal pain mid abdomen area, rated 8/10, aggravated by movement, does not know what relieves it. Patient states that she had more than 10 times diarrhea today has not noted any blood in the stool. States that she cannot control it. She denies hematemesis, hematochezia. Denies chest pain, palpitations, shortness of breath, headaches. Denies fevers, chills. Review of Systems Except as stated in HPI: all other systems reviewed are Neg Past Family Social History Past Medical History HTN Asthma GERD Anemia History of blood clot in the lungs 2010 on warfarin DVT LUE Past Surgical History Left Kidney transplant 2012 Parathyroid surgery Herniated disc Tonsillectomy Rotator cuff surgery Reported Medications Reported Meds & Active Scripts Active Metoclopramide (Metoclopramide HCl) 10 Mg Tab 10 Mg PO QID Bentyl (Dicyclomine HCl) 10 Mg Cap 10 Mg PO TID PRN Percocet (Oxycodone-Acetaminophen) 5-325 mg Tab 1 Tab PO Q6H PRN Benadryl Allergy (Diphenhydramine HCl) 25 Mg Cap 1 Tab PO Q 6 HOUR Reported Prednisone 10 Mg Tab 10 Mg PO DAILY Calcitriol 0.25 Mcg Cap 0.25 Mcg PO BID Amlodipine (Amlodipine Besylate) 5 Mg Tab 5 Mg PO DAILY Famotidine 10 Mg Tab 10 Mg PO BID Tacrolimus 1 Mg Cap 4 Mg PO BID Warfarin 10 Mg Tab 10 Mg PO HS Lyrica (Pregabalin) 100 Mg Cap 100 Mg PO BID Percocet (Oxycodone-Acetaminophen) 10-325 mg Tab 1 Tab PO Q4H PRN Allergies: Coded Allergies: enalaprilat (Unverified Allergy, Severe, Swelling, 06/17/17) losartan (Unverified Allergy, Severe, Swelling, 06/17/17) vancomycin (Unverified Allergy, Severe, Anaphylaxis, 06/17/17) Active Ordered Medications Current Medications Medications (Trade) Dose Ordered Sig/[place] Route Start Time Stop Time Status Last Admin Sodium Chloride 1,000 ml @ 100 mls/hr Q10H IV 06/17/17 11:00 06/17/17 10:35 (NS Flush) 2 ml UNSCH PRN IV FLUSH 06/17/17 10:30 (NS Flush) 2 ml BID IV FLUSH 06/17/17 21:00 (Tylenol) 650 mg Q4H PRN PO 06/17/17 10:30 06/17/17 11:09 (Zofran Inj) 4 mg Q6H PRN IVP 06/17/17 10:30 (Narcan Inj) 0.4 mg UNSCH PRN IV PUSH 06/17/17 10:30 (Roselyn-Colace) 1 tab BID PO 06/17/17 21:00 (Milk Of Magnesia Liq) 30 ml Q12H PRN PO 06/17/17 10:30 (Senokot) 17.2 mg Q12H PRN PO 06/17/17 10:30 (Dulcolax Supp) 10 mg DAILY PRN RECTAL 06/17/17 10:30 (Lactulose Liq) 30 ml DAILY PRN PO 06/17/17 10:30 Family History Father had kidney disease Mother has asthma Social History Denies alcohol use Denies tobacco use Denies illicit drug use Physical Exam Vital Signs Vital Signs Date Time Temp Pulse Resp B/P (MAP) Pulse Ox O2 Delivery O2 Flow Rate FiO2 06/17/17 12:50 97.8 78 17 109/77 (88) 99 06/17/17 12:09 17 06/17/17 10:36 97.9 74 17 102/72 (82) 98 Room Air 06/17/17 09:17 97.9 77 17 101/66 (78) 99 Room Air 06/17/17 08:00 17 06/17/17 06:30 97.7 110 16 90/50 (63) 100 Room Air Physical Exam GENERAL: This is a thin-appearing, well-developed patient, drowsy. SKIN: No rashes, ecchymoses or lesions. Cool and dry. HEAD: Normocephalic. EYES: Pupils equal round and reactive. Extraocular motions intact. No scleral icterus. No injection or drainage. ENT: Nose without bleeding. Throat without erythema. Uvula midline. Airway patent. NECK: Trachea midline. CARDIOVASCULAR: Regular rate and rhythm without murmurs, gallops, or rubs. RESPIRATORY: Clear to auscultation. Breath sounds equal bilaterally. No wheezes , rales, or rhonchi. GASTROINTESTINAL: Abdomen soft, nondistended. Tender to palpate midabdominal region. Bowel sounds active 4 MUSCULOSKELETAL: Extremities without clubbing, cyanosis, or edema. NEUROLOGICAL: Drowsy. Motor and sensory grossly within normal limits. Normal speech. Laboratory Laboratory Tests Test 06/17/17 06:55 06/17/17 07:11 White Blood Count 5.6 Red Blood Count 3.88 Hemoglobin 11.9 Hematocrit 35.9 Mean Corpuscular Volume 92.4 Mean Corpuscular Hemoglobin 30.6 Mean Corpuscular Hemoglobin Concent 33.1 Red Cell Distribution Width 13.9 Platelet Count 250 Mean Platelet Volume 9.2 Neutrophils (%) (Auto) 48.2 Lymphocytes (%) (Auto) 31.7 Monocytes (%) (Auto) 8.6 Eosinophils (%) (Auto) 11.2 Basophils (%) (Auto) 0.3 Neutrophils # (Auto) 2.7 Lymphocytes # (Auto) 1.8 Monocytes # (Auto) 0.5 Eosinophils # (Auto) 0.6 Basophils # (Auto) 0.0 CBC Comment DIFF FINAL Differential Comment Blood Urea Nitrogen 7 Creatinine 1.67 Random Glucose 93 Total Protein 8.7 Albumin 3.9 Calcium Level 7.0 Alkaline Phosphatase 46 Aspartate Amino Transf (AST/SGOT) 22 Alanine Aminotransferase (ALT/SGPT) 17 Total Bilirubin 0.3 Sodium Level 145 Potassium Level 3.8 Chloride Level 112 Carbon Dioxide Level 26.0 Anion Gap 7 Estimat Glomerular Filtration Rate 45 Protein Corrected Calcium Lipase 152 Stool C. difficile Toxin (PCR) NEGATIVE Stl C. difficile Toxin Epiderm 027 PRESUMPTIVE NEGATIVE Date/Time Source Procedure Growth Status 06/17/17 07:11 Stool Stool Pending Received Result Diagram: 06/17/1765406/17/17654 Caprini VTE Risk Assessment Caprini VTE Risk Assessment: Mod/High Risk (score >= 2) Caprini Risk Assessment Model Point Value = 1 Point Value = 2 Point Value = 3 Point Value = 5 Age 41-60 Minor surgery BMI > 25 kg/m2 Swollen legs Varicose veins or History of unexplained or recurrent spontaneous Oral contraceptives or hormone replacement Sepsis (< 1 month) Serious lung disease, including pneumonia (< 1 month) Abnormal pulmonary function Acute myocardial infarction Congestive heart failure (< 1 month) History of inflammatory bowel disease Medical patient at bed rest Age 61-74 Arthroscopic surgery Major open surgery (> 45 min) Laparoscopic surgery (> 45 min) Malignancy Confined to bed (> 72 hours) Immobilizing plaster cast Central venous access Age >= 75 History of VTE Family history of VTE Factor V Leiden Prothrombin [id number] Lupus anticoagulant Anticardiolipin antibodies Elevated serum homocysteine Heparin-induced thrombocytopenia Other congenital or acquired thrombophilia Stroke (< 1 month) Elective arthroplasty Hip, pelvis, or leg fracture Acute spinal cord injury (< 1 month) Prophylaxis Regimen Total Risk Factor Score Risk Level Prophylaxis Regimen 0-1 Low Early ambulation 2 Moderate Order ONE of the following: *Sequential Compression Device (SCD) *Heparin 5000 units SQ BID 3-4 Higher Order ONE of the following medications: *Heparin 5000 units SQ TID *Enoxaparin/Lovenox 40 mg SQ daily (WT < 150 kg, CrCl > 30 mL/min) *Enoxaparin/Lovenox 30 mg SQ daily (WT < 150 kg, CrCl > 10-29 mL/min) *Enoxaparin/Lovenox 30 mg SQ BID (WT < 150 kg, CrCl > 30 mL/min) AND/OR *Sequential Compression Device (SCD) 5 or more Highest Order ONE of the following medications: *Heparin 5000 units SQ TID (Preferred with Epidurals) *Enoxaparin/Lovenox 40 mg SQ daily (WT < 150 kg, CrCl > 30 mL/min) *Enoxaparin/Lovenox 30 mg SQ daily (WT < 150 kg, CrCl > 10-29 mL/min) *Enoxaparin/Lovenox 30 mg SQ BID (WT < 150 kg, CrCl > 30 mL/min) AND *Sequential Compression Device (SCD) Assessment and Plan Problem List: (1) Intractable nausea and vomiting ICD Code: R11.2 - Nausea with vomiting, unspecified Status: Acute (2) Acute kidney injury ICD Code: N17.9 - Acute kidney failure, unspecified Status: Acute (3) Diarrhea ICD Code: R19.7 - Diarrhea, unspecified Status: Acute (4) Hypocalcemia ICD Code: E83.51 - Hypocalcemia Status: Acute (5) Left upper extremity deep vein thrombosis ICD Code: I82.622 - Acute embolism and thrombosis of deep veins of left upper extremity Status: Acute Assessment and Plan Patient is a 27-year-old female with primary medical history of HTN, asthma, GERD, anemia, history of blood clots, status post kidney transplant who came into the hospital for evaluation of worsening nausea vomiting, worsening abdominal pain. Suspect CMV Immunocompromised - Abdominal pain, nausea/ vomiting /diarrhea - She does immunocompromised on antirejection drugs status post kidney transplant 2012 - Check CMV DNA PCR, Sofia-Milton virus, check stool for ova and parasite, fungus culture, cryptosporidium, Cyclospora, Giardia - IV fluids for hydration - Replace electrolytes as needed. Monitor BMP - Zofran for nausea vomiting - Will consult GI if warranted Status post kidney transplant, 2012 Acute kidney injury - On antirejection drugs prednisone 10 mg, Tacrolimus 4mg BID - Avoid nephrotoxins - IV fluid for hydration - Trend renal indices Hypocalcemia - History of parathyroidectomy - On calcitriol twice a day 0.25 mCg, will give calcium gluconate if corrected calcium is low. - Monitor calcium level Left upper extremity DVT, questionable PE history -This episode his recent 02/26/17, patient was placed on Coumadin - Restart Coumadin, monitor INR Asthma not on exacerbation - DuoNeb's when necessary DVT prop Coumadin GI Prop/ GERD - famotidine This note was transcribed by kitty Jo. I, Dr. Aneesh Altamirano personally performed the history, physical exam, and medical decision making; and confirmed the accuracy of the information in the transcribed note. Authenticated by Dr. Aneesh Altamirano on 06/17/17 at 14:45. Code Status Full code Discussed Condition With Patient, nursing Physician Certification 2 Midnight Certification Type: Admission for Inpatient Services Order for Inpatient Services The services are ordered in accordance with Medicare regulations or non- Medicare payer requirements, as applicable. In the case of services not specified as inpatient-only, they are appropriately provided as inpatient services in accordance with the 2-midnight benchmark. Estimated LOS (days): 3 days is the estimated time the patient will need to remain in the hospital, assuming treatment plan goals are met and no additional complications. Post-Hospital Plan: Home Anthony Phelan Jun 17, 2017 14:44 James Altamirano DO Jun 17, 2017 14:45
[2017-06-17] MEDS ORDERED: PILL SPLITTER OTHER PRN (17:15)
[2017-06-17] MEDS: CALCITRIOL 0.25 MCG CAP PO SCH (17:24)
[2017-06-17] MEDS ORDERED: oxyCODONE/ACETAMINOPHEN 10 MG/325 MG TAB PO PRN (18:00)
[2017-06-17 20:25] LABS: PROTHROMBIN TIME - PATIENT 11.4 SEC (9.8-11.6)
[2017-06-17] MEDS: SODIUM CHLORIDE 0.9% FLUSH 10 ML FLUSH IV FLUSH SCH (21:00)
[2017-06-17] MEDS: TACROLIMUS 1 MG CAP PO SCH (21:59)
[2017-06-17] MEDS: WARFARIN SOD 10 MG TAB PO SCH (21:59)
[2017-06-17] MEDS: DOCUSATE SODIUM 50 MG/SENNA 8.6 MG TAB PO SCH (22:00)
[2017-06-17] MEDS: FAMOTIDINE 20 MG TAB PO SCH (22:00)
[2017-06-18] VITALS: BP 134/89; PULSE 66; RESP 20; TEMP 96.8; O2SAT 100
[2017-06-18 04:27] LABS: AUTOMATED NEUTROPHIL # 1.5 TH/MM3 (1.8-7.7); BASOPHIL % 0.5 % (0.0-2.0); EOSINOPHIL # 0.5 TH/MM3 (0-0.4); EOSINOPHIL % 12.2 % (0.0-4.0); HEMATOCRIT 31.8 % (35.0-46.0); HEMO FLAGS DIFF FINAL; LYMPHOCYTE # 1.4 TH/MM3 (1.0-4.8); MEAN CELL VOLUME 92.3 FL (80.0-100.0); MEAN CORPUSCULAR HEMOGLOBIN 30.4 PG (27.0-34.0); MEAN CORPUSCULAR HGB CONC 32.9 % (32.0-36.0); MONO % 10.5 % (0.0-8.0); NEUT % 39.8 % (16.0-70.0); PLATELET COUNT 166 TH/MM3 (150-450); RED BLOOD COUNT 3.45 MIL/MM3 (4.00-5.30); RED CELL DISTRIBUTION WIDTH 13.7 % (11.6-17.2); WHITE BLOOD COUNT 3.8 TH/MM3 (4.0-11.0)
[2017-06-18 04:32] LABS: INTERNATIONAL NORMALIZED RATIO 1.1 RATIO; PROTHROMBIN TIME - PATIENT 11.9 SEC (9.8-11.6)
[2017-06-18 08:00] VITALS: BP 129/66; PULSE 88; RESP 20; TEMP 98; O2SAT 99
[2017-06-18 08:14] LABS: BICARBONATE 19.7 MEQ/L (21.0-32.0); POTASSIUM 3.3 MEQ/L (3.5-5.1)
[2017-06-18] MEDS: CALCITRIOL 0.25 MCG CAP PO SCH ×2 (08:36→17:27)
[2017-06-18] MEDS: DOCUSATE SODIUM 50 MG/SENNA 8.6 MG TAB PO SCH ×3 (08:36→20:12)
[2017-06-18] MEDS: amLODIPine BESYLATE 5 MG TAB PO SCH (08:36)
[2017-06-18] MEDS: TACROLIMUS 1 MG CAP PO SCH ×2 (08:36→20:08)
[2017-06-18] MEDS: predniSONE 10 MG TAB PO SCH (08:37)
[2017-06-18] MEDS: FAMOTIDINE 20 MG TAB PO SCH ×2 (08:37→20:08)
[2017-06-18 08:39] LABS: CALCIUM-PROTEIN CORRECTED 6.5 MG/DL (8.5-10.1)
[2017-06-18] MEDS: SODIUM CHLORIDE 0.9% FLUSH 10 ML FLUSH IV FLUSH SCH ×2 (08:41→20:08)
--- NOTE | 2017-06-18 09:27 | HHI.PR ---
Subjective Remarks Follow-up for nausea vomiting, diarrhea in a patient with renal transplant. Patient is currently doing well. She reports no nausea or vomiting. Requests to advance her diet. Objective Vitals Vital Signs Date Time Temp Pulse Resp B/P (MAP) Pulse Ox O2 Delivery O2 Flow Rate FiO2 06/18/17 08:00 98.0 88 20 129/66 (87) 99 06/18/17 00:00 96.8 66 20 134/89 (104) 100 06/17/17 20:00 97.2 83 20 139/82 (101) 98 06/17/17 18:16 18 06/17/17 16:00 97.5 73 16 119/73 (88) 98 06/17/17 14:25 96.6 95 18 127/80 (96) 96 06/17/17 12:50 97.8 78 17 109/77 (88) 99 06/17/17 10:36 97.9 74 17 102/72 (82) 98 Room Air I/O 06/17/17 06/17/17 06/17/17 06/18/17 06/18/17 06/18/17 06:59 14:59 22:59 06:59 14:59 22:59 Intake Total 1221 ml 1480 ml 240 ml 120 ml Balance 1221 ml 1480 ml 240 ml 120 ml Intake Oral 221 ml 1480 ml 240 ml 120 ml IV Total 1000 ml # Voids 3 2 # Bowel Movements 1 1 Result Diagram: 06/18/17 0349 06/18/17 0707 Objective Remarks GENERAL: Alert, oriented 3, NAD. SKIN: Warm and dry. HEAD: Normocephalic. EYES: No scleral icterus. No injection or drainage. NECK: Supple, trachea midline. No JVD or lymphadenopathy. CARDIOVASCULAR: Regular rate and rhythm without murmurs, gallops, or rubs. RESPIRATORY: Breath sounds equal bilaterally. No accessory muscle use. GASTROINTESTINAL: Abdomen soft, non-tender, nondistended. MUSCULOSKELETAL: No cyanosis, or edema. BACK: Nontender without obvious deformity. No CVA tenderness. Procedures None A/P Problem List: (1) Intractable nausea and vomiting ICD Code: R11.2 - Nausea with vomiting, unspecified Status: Acute (2) Acute kidney injury ICD Code: N17.9 - Acute kidney failure, unspecified Status: Acute (3) Diarrhea ICD Code: R19.7 - Diarrhea, unspecified Status: Acute (4) Hypocalcemia ICD Code: E83.51 - Hypocalcemia Status: Acute (5) Left upper extremity deep vein thrombosis ICD Code: I82.622 - Acute embolism and thrombosis of deep veins of left upper extremity Status: Acute Assessment and Plan Patient is a 27-year-old female with primary medical history of HTN, asthma, GERD, anemia, history of blood clots, status post kidney transplant who came into the hospital for evaluation of worsening nausea vomiting, worsening abdominal pain. - Gastritis with nausea, vomiting, diarrhea - C. Diff negative. Diarrhea is improving. - Abdominal pain, nausea/ vomiting /diarrhea - She does immunocompromised on antirejection drugs status post kidney transplant 2012 - Check CMV DNA PCR, Sofia-Milton virus, check stool for ova and parasite, fungus culture, cryptosporidium, Cyclospora, Giardia - IV fluids for hydration - Zofran for nausea vomiting - Hypocalcemia - Hypomagnesemia - Hypokalemia - Corrected calcium 6.5, magnesium 1.5, potassium 3.3. - We'll replace calcium with 2 g of calcium gluconate IV, replace magnesium with 4 g of magnesium sulfate. - Replace potassium with oral potassium. Status post kidney transplant, 2012 Acute kidney injury - On antirejection drugs prednisone 10 mg, Tacrolimus 4mg BID - Avoid nephrotoxins - IV fluid for hydration - Trend renal indices Left upper extremity DVT, questionable PE history - This episode his recent 02/26/17, patient was placed on Coumadin - Restart Coumadin, monitor INR Asthma not on exacerbation - DuoNeb's when necessary DVT prop Coumadin GI Prop/ GERD - famotidine Full code. James Altamirano DO Jun 18, 2017 9:27 am
[2017-06-18] MEDS ORDERED: CALCIUM GLUCONATE INJ 2 GM in SODIUM CHLORIDE 0.9% INJ 100 ML IV ONE (10:00)
[2017-06-18 11:04] LABS: BACTERIA, URINE RARE /hpf; BLOOD, URINE NEG (NEG); GLUCOSE,URINE NEG (NEG); KETONE, URINE NEG (NEG); NITRITE,URINE NEG (NEG); SQUAMOUS EPITHELIAL CELL URINE 1 /hpf (0-5); URINE COLOR LIGHT-YELLOW (YELLW/STRAW)
[2017-06-18 11:06] LABS: COMMENT (UR) CULT NOT INDICATED; CULTURE IF INDICATED CULT NOT INDICATED
[2017-06-18 12:00] VITALS: BP 135/93; PULSE 101; RESP 18; TEMP 98.2; O2SAT 99
[2017-06-18] MEDS: SODIUM CHLOR 0.9% 1000 ML INJ 1,000 ML IV SCH (13:14)
[2017-06-18] MEDS: MAGNESIUM SULFATE 1 GM PREMIX 100 ML IV SCH ×4 (14:15→20:11)
[2017-06-18] MEDS ORDERED: POTASSIUM CHLORIDE 20 MEQ CONTROLLED RELEASE TAB PO ONE (14:15)
[2017-06-18] MEDS: oxyCODONE/ACETAMINOPHEN 10 MG/325 MG TAB PO PRN ×2 (14:56→23:40)
[2017-06-18] MEDS: ACETAMINOPHEN 325 MG TAB PO PRN (15:27)
[2017-06-18 16:00] VITALS: BP 145/95; PULSE 98; RESP 20; TEMP 97.8; O2SAT 100
[2017-06-18] MEDS: WARFARIN SOD 10 MG TAB PO SCH (16:21)
[2017-06-18] MEDS ORDERED: ALPR.25 PO (19:55)
[2017-06-18 20:00] VITALS: BP 154/115; PULSE 101; RESP 18; TEMP 98.5; O2SAT 99
[2017-06-18] MEDS: POTASSIUM CHLORIDE 20 MEQ CONTROLLED RELEASE TAB PO SCH (20:08)
[2017-06-18] MEDS ORDERED: ALPRAZolam 0.25 MG TAB PO ONE (20:15)
[2017-06-18 21:00] VITALS: BP_SYST 152; BP_SYST 164; BP_DIAS 102; BP_DIAS 111; PULSE 95; PULSE 97; RESP 20; TEMP 97.5; TEMP 99.1; O2SAT 99
[2017-06-18] MEDS ORDERED: cloNIDine HCL 0.1 MG TAB PO ONE (21:45)
[2017-06-19] VITALS: BP_SYST 139; BP_SYST 141; BP_DIAS 101; BP_DIAS 93; PULSE 83; RESP 18; TEMP 96.7; O2SAT 100
[2017-06-19] MEDS: SODIUM CHLOR 0.9% 1000 ML INJ 1,000 ML IV SCH ×3 (03:00→17:51)
[2017-06-19 04:00] VITALS: BP_SYST 140; BP_SYST 147; BP_DIAS 102; BP_DIAS 104; PULSE 84; RESP 18; TEMP 96.1; O2SAT 99
[2017-06-19] MEDS ORDERED: oxyCODONE/ACETAMINOPHEN 10 MG/325 MG TAB PO ONE (04:15)
[2017-06-19 05:08] LABS: INTERNATIONAL NORMALIZED RATIO 1.7 RATIO; PROTHROMBIN TIME - PATIENT 18.8 SEC (9.8-11.6)
[2017-06-19 05:27] LABS: BICARBONATE 25.8 MEQ/L (21.0-32.0); MAGNESIUM 2.2 MG/DL (1.5-2.5); POTASSIUM 3.1 MEQ/L (3.5-5.1)
[2017-06-19 06:00] LABS: CALCIUM-PROTEIN CORRECTED 6.5 MG/DL (8.5-10.1)
[2017-06-19] MEDS ORDERED: POTASSIUM CHLORIDE 25 MEQ EFFERVESCENT TAB PO ONE (06:30)
[2017-06-19] MEDS ORDERED: CALCIUM CHLORIDE INJ 1 GM in SODIUM CHLORIDE 0.9% INJ 90 ML IV ONE (06:30)
[2017-06-19 08:00] VITALS: BP 136/95; PULSE 79; RESP 20; TEMP 98.7; O2SAT 99
[2017-06-19] MEDS: POTASSIUM CHLOR 20 MEQ PREMIX 100 ML IV SCH ×2 (08:51→12:14)
[2017-06-19] MEDS: FAMOTIDINE 20 MG TAB PO SCH ×2 (08:53→21:11)
[2017-06-19] MEDS: predniSONE 10 MG TAB PO SCH (08:53)
[2017-06-19] MEDS: DOCUSATE SODIUM 50 MG/SENNA 8.6 MG TAB PO SCH ×2 (08:53→21:11)
[2017-06-19] MEDS: POTASSIUM CHLORIDE 20 MEQ CONTROLLED RELEASE TAB PO SCH ×2 (08:53→21:00)
[2017-06-19] MEDS: TACROLIMUS 1 MG CAP PO SCH ×2 (08:54→21:00)
[2017-06-19] MEDS: amLODIPine BESYLATE 5 MG TAB PO SCH (08:55)
[2017-06-19] MEDS ORDERED: CALCIUM CARBONATE 1.25 GM (CA 500 MG) TAB PO SCH (09:00)
[2017-06-19] MEDS: CALCIUM CARBONATE 1.25 GM (CA 500 MG) TAB PO SCH ×2 (09:00→21:00)
[2017-06-19] MEDS: SODIUM CHLORIDE 0.9% FLUSH 10 ML FLUSH IV FLUSH SCH ×2 (09:00→21:00)
[2017-06-19] MEDS: oxyCODONE/ACETAMINOPHEN 10 MG/325 MG TAB PO PRN (09:27)
[2017-06-19] MEDS: CALCITRIOL 0.25 MCG CAP PO SCH ×2 (09:28→17:49)
--- NOTE | 2017-06-19 09:47 | HHI.PR ---
Subjective Remarks Follow-up for nausea vomiting, diarrhea in a patient with renal transplant. Patient is doing well. No acute concerns. No further nausea, vomiting, no diarrhea. Objective Vitals Vital Signs Date Time Temp Pulse Resp B/P (MAP) Pulse Ox O2 Delivery O2 Flow Rate FiO2 06/19/17 08:00 98.7 79 20 136/95 (109) 99 06/19/17 04:00 96.1 84 18 147/104 (118) 99 140/102 (115) 06/19/17 00:00 96.7 83 18 141/101 (114) 100 139/93 (108) 06/18/17 21:00 97.5 95 20 164/111 (128) 99 152/102 (119) 06/18/17 21:00 99.1 97 06/18/17 20:00 98.5 101 18 154/115 (128) 99 06/18/17 16:27 18 06/18/17 16:00 97.8 98 20 145/95 (112) 100 06/18/17 15:56 18 06/18/17 12:00 98.2 101 18 135/93 (107) 99 I/O 06/18/17 06/18/17 06/18/17 06/19/17 06/19/17 06/19/17 07:00 15:00 23:00 07:00 15:00 23:00 Intake Total 240 ml 120 ml 5868 ml 240 ml 120 ml Output Total 750 ml Balance 240 ml 120 ml 5118 ml 240 ml 120 ml Intake Oral 240 ml 120 ml 1870 ml 240 ml 120 ml IV Total 3998 ml Output Urine Total 750 ml # Voids 2 2 1 # Bowel Movements 0 Result Diagram: 06/18/17 0349 06/19/17 0407 Objective Remarks GENERAL: Alert, oriented 3, NAD. SKIN: Warm and dry. HEAD: Normocephalic. EYES: No scleral icterus. No injection or drainage. NECK: Supple, trachea midline. No JVD or lymphadenopathy. CARDIOVASCULAR: Regular rate and rhythm without murmurs, gallops, or rubs. RESPIRATORY: Breath sounds equal bilaterally. No accessory muscle use. GASTROINTESTINAL: Abdomen soft, non-tender, nondistended. MUSCULOSKELETAL: No cyanosis, or edema. BACK: Nontender without obvious deformity. No CVA tenderness. Procedures None A/P Problem List: (1) Intractable nausea and vomiting ICD Code: R11.2 - Nausea with vomiting, unspecified Status: Acute (2) Acute kidney injury ICD Code: N17.9 - Acute kidney failure, unspecified Status: Acute (3) Diarrhea ICD Code: R19.7 - Diarrhea, unspecified Status: Acute (4) Hypocalcemia ICD Code: E83.51 - Hypocalcemia Status: Acute (5) Left upper extremity deep vein thrombosis ICD Code: I82.622 - Acute embolism and thrombosis of deep veins of left upper extremity Status: Acute Assessment and Plan Patient is a 27-year-old female with primary medical history of HTN, asthma, GERD, anemia, history of blood clots, status post kidney transplant who came into the hospital for evaluation of worsening nausea vomiting, worsening abdominal pain. - Gastritis with nausea, vomiting, diarrhea - C. Diff negative. Diarrhea is improving. - Abdominal pain, nausea/ vomiting /diarrhea - She does immunocompromised on antirejection drugs status post kidney transplant 2012 - Check CMV DNA PCR, Sofia-Milton virus, check stool for ova and parasite, fungus culture, cryptosporidium, Cyclospora, Giardia - IV fluids for hydration - Zofran for nausea vomiting - Hypocalcemia - Hypomagnesemia - Hypokalemia - Corrected calcium 6.5, magnesium improved to 2.2, potassium 3.1. - We will replace again with IV KCL as well as IV calcium gluconate. - Increase Calcitrol to 0.5mg BID and Calcium carbonate PO 2g BID. - Continue replacement with PO KCL As well. - Obtain BMP in the AM. Status post kidney transplant, 2012 Acute kidney injury - On antirejection drugs prednisone 10 mg, Tacrolimus 4mg BID - Avoid nephrotoxins - IV fluid for hydration - Trend renal indices Left upper extremity DVT, questionable PE history - This episode his recent 02/26/17, patient was placed on Coumadin - Restart Coumadin, monitor INR Asthma not on exacerbation - DuoNeb's when necessary DVT prop Coumadin GI Prop/ GERD - famotidine Full code. James Altamirano DO Jun 19, 2017 09:47
[2017-06-19] MEDS ORDERED: CALCIUM GLUCONATE INJ 2 GM in SODIUM CHLORIDE 0.9% INJ 100 ML IV ONE (10:00)
[2017-06-19 12:00] VITALS: BP 152/101; PULSE 82; RESP 20; TEMP 98.2; O2SAT 100
[2017-06-19] MEDS: ONDANSETRON HCL 4 MG/2 ML VIAL IVP PRN ×2 (14:32→21:10)
[2017-06-19 16:00] VITALS: BP 157/102; PULSE 76; RESP 20; TEMP 96.9; O2SAT 100
[2017-06-19] MEDS ORDERED: CALCIUM GLUCONATE INJ 2 GM in DEXTROSE 5% IN WATER 100ML INJ 100 ML IV ONE ×2 (16:00)
[2017-06-19 20:00] VITALS: BP 166/93; PULSE 75; RESP 18; TEMP 97.9; O2SAT 97
[2017-06-20] MEDS: ONDANSETRON HCL 4 MG/2 ML VIAL IVP PRN ×2 (03:15→10:00)
[2017-06-20 08:00] VITALS: BP 163/90; PULSE 85; RESP 17; TEMP 96.9; O2SAT 100
[2017-06-20] MEDS: DOCUSATE SODIUM 50 MG/SENNA 8.6 MG TAB PO SCH (09:00)
[2017-06-20] MEDS: SODIUM CHLOR 0.9% 1000 ML INJ 1,000 ML IV SCH (09:00)
[2017-06-20] MEDS: SODIUM CHLORIDE 0.9% FLUSH 10 ML FLUSH IV FLUSH SCH (09:00)
[2017-06-20] MEDS: amLODIPine BESYLATE 5 MG TAB PO SCH (09:37)
[2017-06-20] MEDS: CALCIUM CARBONATE 1.25 GM (CA 500 MG) TAB PO SCH (09:37)
[2017-06-20] MEDS: TACROLIMUS 1 MG CAP PO SCH (09:37)
[2017-06-20] MEDS: FAMOTIDINE 20 MG TAB PO SCH (09:37)
[2017-06-20] MEDS: predniSONE 10 MG TAB PO SCH (09:37)
[2017-06-20] MEDS: POTASSIUM CHLORIDE 20 MEQ CONTROLLED RELEASE TAB PO SCH (09:38)
[2017-06-20] MEDS: CALCITRIOL 0.25 MCG CAP PO SCH ×2 (09:38→16:10)
[2017-06-20] MEDS: oxyCODONE/ACETAMINOPHEN 10 MG/325 MG TAB PO PRN ×2 (09:38→16:10)
[2017-06-20] MEDS ORDERED: CALC.25 PO (11:47)
[2017-06-20] MEDS ORDERED: CALC500T30 PO (11:47)
[2017-06-20 12:00] VITALS: BP 149/107; PULSE 80; RESP 17; TEMP 96.9; O2SAT 100
--- NOTE | 2017-06-20 13:59 | HHI.PR ---
Subjective Remarks Follow-up for nausea vomiting, diarrhea in a patient with renal transplant. Patient is doing well. No nausea or vomiting. She wants to go home. Waiting for labs to be drawn today. Objective Vitals Vital Signs Date Time Temp Pulse Resp B/P (MAP) Pulse Ox O2 Delivery O2 Flow Rate FiO2 06/20/17 12:00 96.9 80 17 149/107 (121) 100 06/20/17 08:00 96.9 85 17 163/90 (114) 100 06/19/17 20:00 97.9 75 18 166/93 (117) 97 06/19/17 16:00 96.9 76 20 157/102 (120) 100 I/O 06/19/17 06/19/17 06/19/17 06/20/17 06/20/17 06/20/17 07:00 15:00 23:00 07:00 15:00 23:00 Intake Total 240 ml 120 ml 1200 ml 2465 ml Output Total 800 ml Balance 240 ml 120 ml 400 ml 2465 ml Intake Oral 240 ml 120 ml 1200 ml IV Total 2465 ml Output Urine Total 800 ml # Voids 1 # Bowel Movements 1 Result Diagram: 06/18/17 0349 06/19/17 0407 Objective Remarks GENERAL: Alert, oriented 3, NAD. SKIN: Warm and dry. HEAD: Normocephalic. EYES: No scleral icterus. No injection or drainage. NECK: Supple, trachea midline. No JVD or lymphadenopathy. CARDIOVASCULAR: Regular rate and rhythm without murmurs, gallops, or rubs. RESPIRATORY: Breath sounds equal bilaterally. No accessory muscle use. GASTROINTESTINAL: Abdomen soft, non-tender, nondistended. MUSCULOSKELETAL: No cyanosis, or edema. BACK: Nontender without obvious deformity. No CVA tenderness. Procedures None A/P Problem List: (1) Intractable nausea and vomiting ICD Code: R11.2 - Nausea with vomiting, unspecified Status: Acute (2) Acute kidney injury ICD Code: N17.9 - Acute kidney failure, unspecified Status: Acute (3) Diarrhea ICD Code: R19.7 - Diarrhea, unspecified Status: Acute (4) Hypocalcemia ICD Code: E83.51 - Hypocalcemia Status: Acute (5) Left upper extremity deep vein thrombosis ICD Code: I82.622 - Acute embolism and thrombosis of deep veins of left upper extremity Status: Acute Assessment and Plan Patient is a 27-year-old female with primary medical history of HTN, asthma, GERD, anemia, history of blood clots, status post kidney transplant who came into the hospital for evaluation of worsening nausea vomiting, worsening abdominal pain. - Gastritis with nausea, vomiting, diarrhea - C. Diff negative. Diarrhea is improving. - Abdominal pain, nausea/ vomiting /diarrhea - She does immunocompromised on antirejection drugs status post kidney transplant 2 2012 - Check CMV DNA PCR, Sofia-Milton virus, check stool for ova and parasite, fungus culture, cryptosporidium, Cyclospora, Giardia - IV fluids for hydration - Zofran for nausea vomiting - Hypocalcemia - Hypomagnesemia - Hypokalemia - On 06/19/2017, Corrected calcium 6.5, magnesium improved to 2.2, potassium 3.1. - We replaced with IV KCL as well as IV calcium gluconate. - Increased Calcitrol to 0.5mg BID and Calcium carbonate PO 2g BID. - Continue replacement with PO KCL As well. - Had difficulty obtaining blood sample today. Will wait for the labs. If improved, patient could likely be discharged home today. Status post kidney transplant, 2012 Acute kidney injury - On antirejection drugs prednisone 10 mg, Tacrolimus 4mg BID - Avoid nephrotoxins - IV fluid for hydration - Trend renal indices Left upper extremity DVT, questionable PE history - This episode his recent 02/26/17, patient was placed on Coumadin - Restart Coumadin, monitor INR Asthma not on exacerbation - DuoNeb's when necessary DVT prop Coumadin GI Prop/ GERD - famotidine Full code. James Altamirano DO Jun 20, 2017 1:59 pm
[2017-06-20 14:54] LABS: POTASSIUM 3.1 MEQ/L (3.5-5.1)
[2017-06-20] MEDS ORDERED: POTA1TAB4 PO (15:16)
--- NOTE | 2017-06-20 15:18 | HHI.DS ---
Discharge Summary Admission Date Jun 17, 2017 at 10:19 am Discharge Date: Jun 20, 2017 Admitting Diagnosis intractable nausea/vomiting, acute kidney injury, renal transplant (1) Intractable nausea and vomiting ICD Code: R11.2 - Nausea with vomiting, unspecified Status: Acute (2) Acute kidney injury ICD Code: N17.9 - Acute kidney failure, unspecified Status: Acute (3) Diarrhea ICD Code: R19.7 - Diarrhea, unspecified Status: Acute (4) Hypocalcemia ICD Code: E83.51 - Hypocalcemia Status: Acute (5) Left upper extremity deep vein thrombosis ICD Code: I82.622 - Acute embolism and thrombosis of deep veins of left upper extremity Status: Acute Procedures None Brief History - From Admission Patient is a 27-year-old female with primary medical history of HTN, asthma, GERD, anemia, history of blood clots, status post kidney transplant who came into the hospital for evaluation of worsening nausea vomiting, worsening abdominal pain. Patient states that it started about 2 days ago she had nausea, vomiting, diarrhea. States that she has abdominal pain mid abdomen area, rated 8/10, aggravated by movement, does not know what relieves it. Patient states that she had more than 10 times diarrhea today has not noted any blood in the stool. States that she cannot control it. She denies hematemesis, hematochezia. Denies chest pain, palpitations, shortness of breath, headaches. Denies fevers, chills. CBC/BMP: 06/18/17 0349 06/20/17 1330 Significant Findings Laboratory Tests Test 06/17/17 19:16 06/18/17 03:49 06/18/17 07:07 06/18/17 09:55 White Blood Count 3.8 TH/MM3 (4.0-11.0) Red Blood Count 3.45 MIL/MM3 (4.00-5.30) Hemoglobin 10.5 GM/DL (11.6-15.3) Hematocrit 31.8 % (35.0-46.0) Monocytes (%) (Auto) 10.5 % (0.0-8.0) Eosinophils (%) (Auto) 12.2 % (0.0-4.0) Neutrophils # (Auto) 1.5 TH/MM3 (1.8-7.7) Eosinophils # (Auto) 0.5 TH/MM3 (0-0.4) Prothrombin Time 11.9 SEC (9.8-11.6) Blood Urea Nitrogen 5 MG/DL (7-18) Creatinine 1.09 MG/DL (0.50-1.00) Random Glucose 71 MG/DL (74-106) Total Protein 6.3 GM/DL (6.4-8.2) Calcium Level 6.1 MG/DL (8.5-10.1) Potassium Level 3.3 MEQ/L (3.5-5.1) Chloride Level 114 MEQ/L (98-107) Carbon Dioxide Level 19.7 MEQ/L (21.0-32.0) Estimat Glomerular Filtration Rate 73 ML/MIN (>89) Protein Corrected Calcium 6.5 MG/DL (8.5-10.1) Urine Bacteria RARE /hpf (NONE) Test 06/19/17 04:07 06/20/17 13:30 Prothrombin Time 18.8 SEC (9.8-11.6) Blood Urea Nitrogen 3 MG/DL (7-18) 4 MG/DL (7-18) Calcium Level 6.6 MG/DL (8.5-10.1) 7.7 MG/DL (8.5-10.1) Potassium Level 3.1 MEQ/L (3.5-5.1) 3.1 MEQ/L (3.5-5.1) Chloride Level 111 MEQ/L (98-107) Estimat Glomerular Filtration Rate 85 ML/MIN (>89) Protein Corrected Calcium 6.5 MG/DL (8.5-10.1) Random Glucose 134 MG/DL (74-106) PE at Discharge GENERAL: Alert, oriented 3, NAD. SKIN: Warm and dry. HEAD: Normocephalic. EYES: No scleral icterus. No injection or drainage. NECK: Supple, trachea midline. No JVD or lymphadenopathy. CARDIOVASCULAR: Regular rate and rhythm without murmurs, gallops, or rubs. RESPIRATORY: Breath sounds equal bilaterally. No accessory muscle use. GASTROINTESTINAL: Abdomen soft, non-tender, nondistended. MUSCULOSKELETAL: No cyanosis, or edema. BACK: Nontender without obvious deformity. No CVA tenderness. Pt update on day of discharge Patient is doing well. No acute concerns. Wants to go home. Hospital Course Patient is a 27-year-old female with primary medical history of HTN, asthma, GERD, anemia, history of blood clots, status post kidney transplant who came into the hospital for evaluation of worsening nausea vomiting, worsening abdominal pain. - Gastritis with nausea, vomiting, diarrhea - C. Diff negative. Diarrhea resolved. - Abdominal pain, nausea/ vomiting /diarrhea resolved as well. - She does immunocompromised on antirejection drugs status post kidney transplant 2012 - We checked CMV DNA PCR, Sofia-Milton virus, check stool for ova and parasite, fungus culture, cryptosporidium, Cyclospora, Giardia - most of these labs are pending and can be requested by outpatient providers if desired. Patient's symptoms resolved in the hospital with supportive care and without any antibiotics. - Hypocalcemia - Hypomagnesemia - Hypokalemia - On 06/19/2017, Corrected calcium 6.5, magnesium improved to 2.2, potassium 3.1. - We replaced with IV KCL as well as IV calcium gluconate. - Increased Calcitrol to 0.5mg BID and Calcium carbonate PO 2g BID. - Continue replacement with PO KCL As well. - Lab work today shows improved electrolytes. We will d/c patient on Calcitrol, Calcium carbonate as well as PO KCL. Status post kidney transplant, 2012 Acute kidney injury - On antirejection drugs prednisone 10 mg, Tacrolimus 4mg BID - Avoid nephrotoxins - Received IV fluid for hydration Left upper extremity DVT, questionable PE history - This episode his recent 02/26/17, patient was placed on Coumadin Asthma not on exacerbation - DuoNeb's when necessary DVT prop Coumadin GI Prop/ GERD - famotidine Pt Condition on Discharge: Good Discharge Disposition: Discharge Home Discharge Time: > 30 minutes Discharge Instructions DIET: Follow Instructions for: As Tolerated, No Restrictions Activities you can perform: Regular-No Restrictions Follow up Referrals: PCP Follow-up - 1 Week New Medications: Potassium Chloride ER (K-Tab) 20 Meq Tab 20 MEQ PO TID for Electrolyte Replacement, #15 TAB 0 Refills Calcitriol (Rocaltrol) 0.25 Mcg Cap 0.5 MCG PO BIDPC for hypocalcemia, #60 CAP 3 Refills Oyster Shell (Calcium Oyster Shell) 500 Mg Calcium (1250 Mg) Tab 2000 MG PO BID for Hypocalcemia, #60 TAB 3 Refills Continued Medications: Alprazolam (Xanax) 0.25 Mg Tab 0.25 MG PO Q4H PRN for ANXIETY, TAB 0 Refills Amlodipine (Amlodipine) 5 Mg Tab 5 MG PO DAILY for Blood Pressure Management, #30 TAB 0 Refills Dicyclomine (Bentyl) 10 Mg Cap 10 MG PO TID PRN for Bowel Management, #10 CAP 0 Refills Diphenhydramine HCl (Benadryl Allergy) 25 Mg Cap 1 TAB PO q 6 hour, #12 Famotidine (Famotidine) 10 Mg Tab 10 MG PO BID, #60 TAB 0 Refills Metoclopramide (Metoclopramide) 10 Mg Tab 10 MG PO QID, #20 TAB 0 Refills Oxycodone-Acetaminophen (Percocet) 10-325 mg Tab 1 TAB PO Q4H PRN for PAIN, TAB 0 Refills Prednisone (Prednisone) 10 Mg Tab 10 MG PO DAILY, TAB 0 Refills Pregabalin (Lyrica) 100 Mg Cap 100 MG PO BID, #60 CAP 0 Refills Tacrolimus (Tacrolimus) 1 Mg Cap 4 MG PO BID for Prevent Transplant Reject, #240 CAP 0 Refills Warfarin (Warfarin) 10 Mg Tab 10 MG PO HS for Blood Clot Prevention, #30 TAB 0 Refills Discontinued Medications: Calcitriol (Calcitriol) 0.25 Mcg Cap 0.25 MCG PO BID for Calcium Supplement, #30 CAP 0 Refills Oxycodone-Acetaminophen (Percocet) 5-325 mg Tab 1 TAB PO Q6H PRN for PAIN, #7 TAB 0 Refills James Altamirano DO Jun 20, 2017 15:18
[2017-06-20] MEDS: WARFARIN SOD 10 MG TAB PO SCH (16:11)
[2017-06-21 03:41] LABS: EBV VCA IgM Negative (Negative)
== END 2017-06-20 16:18 | disposition home or self-care (01) | DRG 392 ==
LOC: NEPC 06:24 → NEDA 10:19 → N07A 13:20
PROVIDERS: ADMIT Hospitalist; ATTEND Hospitalist
DX: K29.70 Gastritis, unspecified, without bleeding (principal); N17.9 Acute kidney failure, unspecified; Z94.0 Kidney transplant status; E83.42 Hypomagnesemia; I10 Essential (primary) hypertension; K21.9 Gastro-esophageal reflux disease without esophagitis; J45.909 Unspecified asthma, uncomplicated; E83.51 Hypocalcemia; E87.6 Hypokalemia; Z86.718 Personal history of other venous thrombosis and embolism; Z79.01 Long term (current) use of anticoagulants; Z79.899 Other long term (current) drug therapy; J02.9 Acute pharyngitis, unspecified; R19.7 Diarrhea, unspecified; D64.9 Anemia, unspecified
CPT/HCPCS: 71010; 80048; 80053; 81001; 83690; 83735; 84100; 84155; 84703; 85025; 85610; 85730; 86664; 86665; 87040; 87081; 87102; 87207; 87328; 87329; 87493; 87497; 87506; 87880; 96361; 96374; 96375; J0610; J2270; J2405; J3475; J3480; J7030; J7507; J7512

== ENCOUNTER 2017-07-28 12:56 | Emergency (ER) | payer MEDICARE, BC, OTHER ==
[~2017-07-28] VITALS: Ht 165.1 cm; Wt 84.0 kg
[~2017-07-28 12:56] MED LIST changes: +ALPR.25 PO; +CALC.25 PO; -CALC0.25 PO; +CALC500T30 PO; -PERC5TAB12 PO; +POTA1TAB4 PO
[2017-07-28 12:58] VITALS: BP 162/93; PULSE 90; RESP 18; TEMP 98.6; O2SAT 100
--- NOTE | 2017-07-28 13:49 | PD ---
Physical Exam Date Seen by Provider: Jul 28, 2017 Narrative Chief complaint: Pain over her transplanted kidney. Patient reports the onset of pain in her left lower quadrant yesterday. It is associated with nausea and vomiting. She is status post a kidney transplant in 2012. She states that she has not called her transplant doctor who is in [place]. She does report compliance with her antirejection medication. Data Data Last Documented VS Vital Signs Date Time Temp Pulse Resp B/P (MAP) Pulse Ox O2 Delivery O2 Flow Rate FiO2 07/28/17 12:58 98.6 90 18 162/93 (116) 100 Room Air Orders Orders Complete Blood Count With Diff (07/28/17 13:46) Comprehensive Metabolic Panel (07/28/17 13:46) Lactic Acid Sepsis Protocol (07/28/17 13:46) Urinalysis - C+S If Indicated (07/28/17 13:46) Blood Culture (07/28/17 13:46) Chest, Single Ap (07/28/17 13:46) Ecg Monitoring (07/28/17 13:46) Iv Access Insert/Monitor (07/28/17 13:46) Oximetry (07/28/17 13:46) Ed Urine Pregnancytest Poc (07/28/17 13:46) Morphine Inj (Morphine Inj) (07/28/17 14:00) Ondansetron Inj (Zofran Inj) (07/28/17 14:00) MDM Supervised Visit with TITO: No Narrative Course Septic workup has been initiated. Kim Daugherty MD Jul 28, 2017 13:48
[2017-07-28] MEDS ORDERED: MYCO500 PO (13:50)
[2017-07-28] MEDS ORDERED: ONDANSETRON HCL 4 MG/2 ML VIAL IV PUSH ONE (14:00)
[2017-07-28] MEDS ORDERED: MORPHINE SULFATE 4 MG/ML INJ IV PUSH ONE ×2 (14:00→16:15)
[2017-07-28 14:41] LABS: AUTOMATED NEUTROPHIL # 1.5 TH/MM3 (1.8-7.7); BASOPHIL % 1.2 % (0.0-2.0); EOSINOPHIL # 0.5 TH/MM3 (0-0.4); EOSINOPHIL % 14.5 % (0.0-4.0); HEMATOCRIT 33.9 % (35.0-46.0); HEMO FLAGS DIFF FINAL; LYMPH % 31.8 % (9.0-44.0); LYMPHOCYTE # 1.1 TH/MM3 (1.0-4.8); MEAN CELL VOLUME 90.2 FL (80.0-100.0); MEAN CORPUSCULAR HEMOGLOBIN 31.1 PG (27.0-34.0); MEAN CORPUSCULAR HGB CONC 34.5 % (32.0-36.0); MONO % 9.8 % (0.0-8.0); NEUT % 42.7 % (16.0-70.0); PLATELET COUNT 203 TH/MM3 (150-450); RED BLOOD COUNT 3.76 MIL/MM3 (4.00-5.30); RED CELL DISTRIBUTION WIDTH 13.6 % (11.6-17.2); WHITE BLOOD COUNT 3.6 TH/MM3 (4.0-11.0)
[2017-07-28 14:59] LABS: APTT (PATIENT) 27.6 SEC (24.3-30.1)
[2017-07-28 15:10] VITALS: BP 154/98; PULSE 89; RESP 16; O2SAT 96
[2017-07-28 15:15] LABS: BLOOD, URINE NEG (NEG); COMMENT (UR) CATH-CULT NOT IND; CULTURE IF INDICATED CATH CULTURE NOT IND; GLUCOSE,URINE NEG (NEG); KETONE, URINE NEG (NEG); MUCUS URINE FEW /lpf (OCC); NITRITE,URINE NEG (NEG); SQUAMOUS EPITHELIAL CELL URINE 3 /hpf (0-5); URINE COLOR YELLOW (YELLW/STRAW)
--- NOTE | 2017-07-28 15:18 | RADRPT ---
EXAM DATE/TIME: 07/28/2017 13:56 [facility] COMPARISON: CHEST SINGLE AP, June 16, 2017, 9:20. INDICATIONS : Vomiting MEDICAL HISTORY : Irregular heartbeat. Thyroid disease. Chest pain. Asthma. Pneumonia. IBS. GERD. Hemorrhage cyst in ut erus. Ovarian cysts. Renal failure. Glomerlonephritis. Anemia. GERD. Hemorrhage cyst in uterus. Ovari an cysts. Renal failure. Glomerlonephritis. Anemia. SURGICAL HISTORY : Tonsillectomy. Peritoneal catheter placement and removal. Dialysis. Left kidney transplant x2. Parath yroidectomy. Right rotator cuff. Lymph node removal. Left arm shunt removal ENCOUNTER: Initial ACUITY: 2 days PAIN SCORE: 0/10 LOCATION: chest FINDINGS: The cardiac and mediastinal contours are within normal limits. The lungs are clear. The bony structur es are intact. Note is made of an old stent in the left axillary vein. CONCLUSION: 1. No acute cardiopulmonary findings. Piotr Brody MD on July 28, 2017 at 15:15 Board Certified Radiologist. This report was verified electronically.
[2017-07-28 15:24] LABS: BICARBONATE 27.5 MEQ/L (21.0-32.0); POTASSIUM 4.1 MEQ/L (3.5-5.1); TOTAL BILIRUBIN ADULT 0.5 MG/DL (0.2-1.0)
[2017-07-28 15:36] LABS: CALCIUM-PROTEIN CORRECTED 7.3 MG/DL (8.5-10.1)
--- NOTE | 2017-07-28 16:27 | RADRPT ---
EXAM DATE/TIME: 07/28/2017 15:51 [facility] COMPARISON: CT ABDOMEN & PELVIS W/O CONTRAST, February 18, 2017, 15:57. INDICATIONS : Left lower quadrant pain since yesterday ORAL CONTRAST: No oral contrast ingested. RADIATION DOSE: 9.70 CTDIvol (mGy) MEDICAL HISTORY : Cardiovascular disease. Hypertension. Renal failure, chronic. SURGICAL HISTORY : lt renal transplant ENCOUNTER: Initial ACUITY: 2 days PAIN SCALE: 8/10 LOCATION: Left lower quadrant TECHNIQUE: Volumetric scanning of the abdomen and pelvis was performed. Using automated exposure control and ad justment of the mA and/or kV according to patient size, radiation dose was kept as low as reasonably achievable to obtain optimal diagnostic quality images. DICOM format image data is available electro nically for review and comparison. FINDINGS: LOWER LUNGS: The visualized lower lungs are clear. LIVER: Homogeneous density without lesion. There appears to be cystic intrahepatic ductal dilatation. The ex trahepatic biliary system appears nondilated. Correlation with alkaline phosphatase and bilirubin lev els is suggested. Differential diagnosis includes Caroli disease or, less likely, cholangiocarcinoma. MRCP may be helpful for further evaluation. No calcified gallstones. SPLEEN: Normal size without lesion. PANCREAS: Within normal limits. KIDNEYS: The patient is status post renal transplant which is located in the left lower quadrant. The patient' s huslia kidneys are markedly atrophic. ADRENAL GLANDS: Within normal limits. VASCULAR: There is no aortic aneurysm. BOWEL/MESENTERY: The stomach, small bowel, and colon demonstrate no acute abnormality. There is no free intraperitone al air or fluid. ABDOMINAL WALL: Within normal limits. RETROPERITONEUM: There is no lymphadenopathy. BLADDER: No wall thickening or mass. REPRODUCTIVE: Within normal limits. INGUINAL: There is no lymphadenopathy or hernia. MUSCULOSKELETAL: Within normal limits for patient age. CONCLUSION: 1. No acute inflammatory process. 2. Cystic intrahepatic ductal dilatation. The extrahepatic biliary system appears nondilated. Correla tion with alkaline phosphatase and bilirubin levels is suggested. Differential diagnosis includes Car bang disease or, less likely, cholangiocarcinoma. MRCP may be helpful for further evaluation. 3. If there is clinical concern for transplant rejection, ultrasound evaluation of the renal transpla nt would be more sensitive. Misael Miller MD on July 28, 2017 at 16:15 Board Certified Radiologist. This report was verified electronically.
[2017-07-28 17:03] VITALS: BP 128/87; PULSE 73; RESP 18; O2SAT 100
--- NOTE | 2017-07-28 18:07 | RADRPT ---
EXAM DATE/TIME: 07/28/2017 17:04 [facility] COMPARISON: CT ABDOMEN & PELVIS W/O CONTRAST, July 28, 2017, 15:51. US ARM LEFT VENOUS DOPPLER, February 26 7, 14:20. INDICATIONS : Left lower quadrant pain. MEDICAL HISTORY : Gastroesophageal reflux disease. Hypertension. Thyroid disease. Irregular heartbeat. Asthma. Pneumo constance. IBS. Ovarian cysts. Renal failure. History of dialysis. Glomerulonephritis. Anxiety. Anemia. Blo od transfusion. Pulmonary embolism. Anticoagulant therapy. SURGICAL HISTORY : Tonsillectomy. Parathyroidectomy. Renal transplant x 2. Ovarian cyst removal. Right rotator cuff repair. Peritoneal catheter. Lymph node removal. ENCOUNTER: Initial ACUITY: 1 day PAIN SCORE: 9/10 LOCATION: Left lower quadrant MEASUREMENTS: TRANSPLANT KIDNEY: 13.4 x 6.8 x 4.7 cm LOCATION: Left lower quadrant. PREVIOUS ULTRASOUND: Jun 03 2016 PREVIOUS ARCUATE ARTERIES INDEX: Upper - 0.5 Mid - 0.5 Lower - 0.5 ARCUATE ARTERIES RESISTIVE INDEX: Upper - 0.5 Mid - 0.6 Lower - 0.6 RA/EIA Ratio: 1.4 MAIN RENAL ARTERY VELOCITY: (cm/sec): 134 MAIN RENAL VEIN: Patent EXTERNAL ILIAC ARTERY VELOCITY (cm/sec): 99 * NORMAL DOPPLER FINDINGS Arcuate arteries - RI = 0.6 - 0.8 Renal artery = under 200 cm/sec Renal vein = May be monophasic with continuous flow or demonstrate some pulsatility with cardiac cycl e FINDINGS: TRANSPLANT KIDNEY: The renal pyramids appear echogenic. The cortex appears mildly thinned. There is no hydronephrosis. F indings have an appearance most consistent with nephrocalcinosis. URINARY BLADDER: Within normal limits given the degree of distension. CONCLUSION: 1. Echogenic renal pyramids suggesting nephrocalcinosis. 2. The resistive indices are within normal limits. Piotr Brody MD on July 28, 2017 at 18:01 Board Certified Radiologist. This report was verified electronically.
--- NOTE | 2017-07-28 18:13 | RADRPT ---
EXAM DATE/TIME: 07/28/2017 17:17 [facility] COMPARISON: US PELVIS,COMP,W DOPLR, TRANS VAG, February 20, 2017, 17:42. CT ABDOMEN & PELVIS W/O CONTRAST, July 28, 2017, 15:51. INDICATIONS : Pelvic pain. MEDICAL HISTORY : Hypertension. Gastroesophageal reflux disease. Thyroid disease. Irregular heartbeat. Asthma. Pneumo constance. IBS. Ovarian cysts. Renal failure. History of dialysis. Glomerulonephritis. Anxiety. Anemia. Blo od transfusion. Pulmonary embolism. Anticoagulant therapy. SURGICAL HISTORY : Tonsillectomy. Parathyroidectomy. Renal transplant x 2. Ovarian cyst removal. Right rotator cuff repair. Peritoneal catheter. Lymph node removal. ENCOUNTER: Subsequent ACUITY: 1 day PAIN SCORE: 9/10 LOCATION: Bilateral pelvis MEASUREMENTS: UTERUS: 10.4 x 5.3 x 3.5 cm ENDOMETRIAL STRIPE: 4 mm RIGHT OVARY: 4.4 x 3.0 x 1.7 cm LEFT OVARY: 4.2 x 3.7 x 2.1 cm FINDINGS: UTERUS: The myometrium has homogeneous echotexture without mass. RIGHT OVARY: Ovary contains no mass or significant cystic lesion. Blood flow is seen to the ovary. LEFT OVARY: There is a 2.2 x 2.0 x 1.2 cm cyst seen at the left ovary. Blood flow is seen to the ovary. MISCELLANEOUS: No free fluid. CONCLUSION: 2.2 cm simple cyst of the left ovary. Given its size and the patient's age, this is likely related to a prominent follicle. Vinny Bush MD on July 28, 2017 at 18:06 Board Certified Radiologist. This report was verified electronically.
[2017-07-28 18:29] VITALS: BP 120/77; PULSE 89; RESP 22; O2SAT 97
[2017-07-28] MEDS ORDERED: HYDROmorphone HCL PF 0.5 MG/0.5 ML SYRINGE IV PUSH ONE (19:00)
[2017-07-28] MEDS ORDERED: PERC5TAB12 PO (19:02)
--- NOTE | 2017-07-28 19:02 | PD ---
HPI Chief Complaint: Complaint Time Seen by Provider: 15:07 Travel History International Travel<30 days: No Contact w/Intl Traveler<30days: No Traveled to known affect area: No History of Present Illness HPI Patient is a 27-year-old female with history of renal transplant who comes in complaining of pain over her transplant site in the left lower quadrant. She says it started last night and got worse today. She said walking around was hurting her. She's had some nausea, no vomiting. She denies any fever or chills. She denies any urinary symptoms. She says she is urinating normally. She reports compliance with her antirejection medications. She said she had pain like this in the past and lopez infection of the kidney. She says she also gets pain like this when she is getting her menstrual period. She took an oxycodone at home, which provided minimal relief of her pain. PFSH Past Medical History Hx Anticoagulant Therapy: Yes (Warfarin) Anemia: Yes Asthma: Yes Blood Disorders: No Anxiety: Yes Depression: No Heart Rhythm Problems: Yes Cancer: No Cardiovascular Problems: Yes (arrythmia) High Cholesterol: No Chemotherapy: No Chest Pain: Yes Congestive Heart Failure: No COPD: No Diabetes: No Dialysis: Yes (2012) Diminished Hearing: No Deep Vein Thrombosis: Yes Endocrine: Yes (GLOMERLONEPHRITIS) Gastrointestinal Disorders: Yes (IBS) GERD: Yes Genitourinary: Yes Hypertension: Yes Immune Disorder: No Implanted Vascular Access Dvce: Yes Musculoskeletal: No Neurologic: No Psychiatric: Yes Reproductive: Yes (hemorrhagic cyst in the uterus ) Respiratory: Yes (asthma) Immunizations Current: Yes Migraines: Yes Pneumonia: Yes Radiation Therapy: No Renal Failure: Yes Sleep Apnea: No Thyroid Disease: Yes (parathyroidectomy ) ?: Not Ovarian Cysts: Yes Past Surgical History Abdominal Surgery: Yes (PERITONEAL CATHETER PLACEMENT/REMOVAL) Body Medical Devices: USED TO HAVE A FISTULA Endocrine Surgery: Yes (KIDNEY TRANSPLANT X 2/PARATHYROIDECTOMY) Genitourinary Surgery: Yes (bilateral kidneys transplant) Gynecologic Surgery: Yes (HEMORRAGIC CYST) Neurologic Surgery: Yes Tonsillectomy: Yes Other Surgery: Yes (Left arm AV fistula(REMOVED") Social History Alcohol Use: No Tobacco Use: No Substance Use: No Allergies-Medications (Allergen,Severity, Reaction): Coded Allergies: enalaprilat (Unverified Allergy, Severe, Swelling, 07/28/17) losartan (Unverified Allergy, Severe, Swelling, 07/28/17) vancomycin (Unverified Allergy, Severe, Anaphylaxis, 07/28/17) Reported Meds & Prescriptions Reported Meds & Active Scripts Active Calcium Oyster Shell (Oyster Shell) 500 Mg Calcium (1250 Mg) Tab 2,000 Mg PO BID Rocaltrol (Calcitriol) 0.25 Mcg Cap 0.5 Mcg PO BIDPC Benadryl Allergy (Diphenhydramine HCl) 25 Mg Cap 1 Tab PO Q 6 HOUR Reported Cellcept (Mycophenolate Mofetil) 500 Mg Tab 1,500 Mg PO BID Prednisone 10 Mg Tab 10 Mg PO DAILY Amlodipine (Amlodipine Besylate) 5 Mg Tab 5 Mg PO DAILY Famotidine 10 Mg Tab 10 Mg PO BID Tacrolimus 1 Mg Cap 4 Mg PO BID Warfarin 10 Mg Tab 10 Mg PO HS Lyrica (Pregabalin) 100 Mg Cap 100 Mg PO BID Percocet (Oxycodone-Acetaminophen) 10-325 mg Tab 1 Tab PO Q4H PRN Review of Systems Except as stated in HPI: all other systems reviewed are Neg General / Constitutional: No: Fever, Chills HENT: No: Headaches, Lightheadedness Cardiovascular: No: Chest Pain or Discomfort Respiratory: No: Shortness of Breath Gastrointestinal: Positive: Nausea, Abdominal Pain Genitourinary: No: Dysuria, Discharge Musculoskeletal: No: Myalgias, Edema Skin: No Rash, No Change in Pigmentation Neurologic: No: Weakness, Dizziness Physical Exam Narrative GENERAL: Awake and alert, in no acute distress. SKIN: Focused skin assessment warm/dry. HEAD: Atraumatic. Normocephalic. EYES: Pupils equal and round. No scleral icterus. ENT: Mucous membranes pink and moist. NECK: Trachea midline. No JVD. CARDIOVASCULAR: Regular rate and rhythm. No murmur appreciated. RESPIRATORY: No accessory muscle use. Clear to auscultation. Breath sounds equal bilaterally. GASTROINTESTINAL: Abdomen soft, nondistended. Tender to palpation of the left lower quadrant. No rebound or guarding. MUSCULOSKELETAL: No obvious deformities. No clubbing. No cyanosis. No edema. NEUROLOGICAL: Awake and alert. No obvious cranial nerve deficits. Motor grossly within normal limits. Normal speech. PSYCHIATRIC: Appropriate mood and affect; insight and judgment normal. Data Data Last Documented VS Vital Signs Date Time Temp Pulse Resp B/P (MAP) Pulse Ox O2 Delivery O2 Flow Rate FiO2 07/28/17 18:29 89 22 120/77 (91) 97 Room Air 07/28/17 12:58 98.6 Orders Orders Complete Blood Count With Diff (07/28/17 13:46) Comprehensive Metabolic Panel (07/28/17 13:46) Lactic Acid Sepsis Protocol (07/28/17 13:46) Urinalysis - C+S If Indicated (07/28/17 13:46) Blood Culture (07/28/17 13:46) Chest, Single Ap (07/28/17 13:46) Ecg Monitoring (07/28/17 13:46) Iv Access Insert/Monitor (07/28/17 13:46) Oximetry (07/28/17 13:46) Ed Urine Pregnancytest Poc (07/28/17 13:46) Morphine Inj (Morphine Inj) (07/28/17 14:00) Ondansetron Inj (Zofran Inj) (07/28/17 14:00) Coag Profile (07/28/17 14:20) Ct Abd/Pel W/O Iv Contrast (07/28/17 ) Morphine Inj (Morphine Inj) (07/28/17 16:15) Us Kidney / Transplant (07/28/17 ) Us Pelvis Comp W Doppler (07/28/17 ) Hydromorphone Pf Inj (Dilaudid Pf Inj) (07/28/17 19:00) Labs Laboratory Tests Test 07/28/17 14:15 07/28/17 14:25 White Blood Count 3.6 TH/MM3 Red Blood Count 3.76 MIL/MM3 Hemoglobin 11.7 GM/DL Hematocrit 33.9 % Mean Corpuscular Volume 90.2 FL Mean Corpuscular Hemoglobin 31.1 PG Mean Corpuscular Hemoglobin Concent 34.5 % Red Cell Distribution Width 13.6 % Platelet Count 203 TH/MM3 Mean Platelet Volume 8.8 FL Neutrophils (%) (Auto) 42.7 % Lymphocytes (%) (Auto) 31.8 % Monocytes (%) (Auto) 9.8 % Eosinophils (%) (Auto) 14.5 % Basophils (%) (Auto) 1.2 % Neutrophils # (Auto) 1.5 TH/MM3 Lymphocytes # (Auto) 1.1 TH/MM3 Monocytes # (Auto) 0.4 TH/MM3 Eosinophils # (Auto) 0.5 TH/MM3 Basophils # (Auto) 0.0 TH/MM3 CBC Comment DIFF FINAL Differential Comment Prothrombin Time 11.0 SEC Prothromb Time International Ratio 1.0 RATIO Activated Partial Thromboplast Time 27.6 SEC Blood Urea Nitrogen 11 MG/DL Creatinine 0.99 MG/DL Random Glucose 79 MG/DL Total Protein 7.5 GM/DL Albumin 3.4 GM/DL Calcium Level 7.4 MG/DL Alkaline Phosphatase 52 U/L Aspartate Amino Transf (AST/SGOT) 29 U/L Alanine Aminotransferase (ALT/SGPT) 14 U/L Total Bilirubin 0.5 MG/DL Sodium Level 139 MEQ/L Potassium Level 4.1 MEQ/L Chloride Level 104 MEQ/L Carbon Dioxide Level 27.5 MEQ/L Anion Gap 8 MEQ/L Estimat Glomerular Filtration Rate 81 ML/MIN Lactic Acid Level 1.1 mmol/L Protein Corrected Calcium 7.3 MG/DL Urine Color YELLOW Urine Turbidity CLEAR Urine pH 7.0 Urine Specific [place] 1.020 Urine Protein TRACE mg/dL Urine Glucose (UA) NEG mg/dL Urine Ketones NEG mg/dL Urine Occult Blood NEG Urine Nitrite NEG Urine Bilirubin NEG Urine Urobilinogen LESS THAN 2.0 MG/DL Urine Leukocyte Esterase NEG Urine RBC LESS THAN 1 /hpf Urine WBC 1 /hpf Urine Squamous Epithelial Cells 3 /hpf Urine Mucus FEW /lpf Microscopic Urinalysis Comment CATH-CULT NOT IND MDM Medical Decision Making Medical Screen Exam Complete: Yes Emergency Medical Condition: Yes Medical Record Reviewed: Yes Differential Diagnosis Ovarian cyst versus pyelonephritis versus electrolyte abnormality versus colitis Narrative Course Patient is a 27-year-old female comes in complaining of left lower quadrant abdominal pain. IV established, labs sent. Labs show normal creatinine. Labs are within normal limits. CT abdomen and pelvis shows evidence of dilatation of the common bile duct. Patient's AST, ALT, bilirubin, alkaline phosphatase are all within normal limits and patient has no tenderness to the right upper quadrant. Ultrasound of the pelvis shows a left-sided ovarian cyst with good flow to the ovary. Ultrasound of the kidney shows no evidence of rejection. Patient given pain medicine. To be discharged with a prescription for pain medicine. 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 Advised to return to the ED as needed for any worsening symptoms. Last 24 hours Impressions Renal Ultrasound 07/28/17 0000 Signed Impressions: Service Date/Time: July 17:04 - CONCLUSION: 1. Echogenic renal pyramids suggesting nephrocalcinosis. 2. The resistive indices are within normal limits. Piotr Brody MD Pelvis Ultrasound 07/28/17 0000 Signed Impressions: Service Date/Time: July 17:17 - CONCLUSION: 2.2 cm simple cyst of the left ovary. Given its size and the patient's age, this is likely related to a prominent follicle. Vinny Bush MD Abdomen/Pelvis CT 07/28/17 0000 Signed Impressions: Service Date/Time: July 15:51 - CONCLUSION: 1. No acute inflammatory process. 2. Cystic intrahepatic ductal dilatation. The extrahepatic biliary system appears nondilated. Correlation with alkaline phosphatase and bilirubin levels is suggested. Differential diagnosis includes Caroli disease or, less likely, cholangiocarcinoma. MRCP may be helpful for further evaluation. 3. If there is clinical concern for transplant rejection, ultrasound evaluation of the renal transplant would be more sensitive. Misael Miller MD Diagnosis Primary Impression: Left ovarian cyst Patient Instructions: General Instructions, Ovarian Cyst (ED) Additional Instructions: Follow-up with [employer]ORAT[employer] TECHNOLOGIST. Take pain medicine as needed. Return to the ED as needed for any worsening symptoms. Scripts Oxycodone-Acetaminophen (Percocet) 5-325 mg Tab 1 TAB PO Q6H Y for PAIN, #14 TAB 0 Refills Prov: Shakira Bravo MD 07/28/17 Disposition: 01 DISCHARGE HOME Condition: Stable Shakira Bravo MD Jul 28, 2017 19:02
[2017-07-28 19:05] VITALS: BP 130/91; PULSE 88; RESP 20; O2SAT 99
[2017-07-28 19:09] VITALS: RESP 20
== END 2017-07-28 19:59 | disposition home or self-care (01) ==
LOC: NEPE 12:56
DX: N83.202 Unspecified ovarian cyst, left side (principal); R11.0 Nausea; D64.9 Anemia, unspecified; J45.909 Unspecified asthma, uncomplicated; F41.9 Anxiety disorder, unspecified; K21.9 Gastro-esophageal reflux disease without esophagitis; I10 Essential (primary) hypertension; Z86.718 Personal history of other venous thrombosis and embolism; Z87.19 Personal history of other diseases of the digestive system
CPT/HCPCS: 71010; 74176; 76776; 76856; 80053; 81001; 83605; 84703; 85025; 85610; 85730; 87040; 93975; 96374; 96375; 96376; 99285; J1170; J2270; J2405

== ENCOUNTER 2017-08-01 16:43 | Emergency (ER) | payer MEDICARE, BC ==
[~2017-08-01] VITALS: Ht 165.1 cm; Wt 85.0 kg
[~2017-08-01 16:43] MED LIST changes: -ALPR.25 PO; -DICY10 PO; -METO10TA PO; +MYCO500 PO; +PERC5TAB12 PO; -POTA1TAB4 PO
[2017-08-01 16:46] VITALS: BP 145/102; PULSE 96; RESP 17; TEMP 98.9; O2SAT 95
[2017-08-01] MEDS ORDERED: HYDROmorphone HCL PF 0.5 MG/0.5 ML SYRINGE IV PUSH ONE (17:15)
[2017-08-01] MEDS ORDERED: ONDANSETRON HCL 4 MG/2 ML VIAL IV PUSH ONE (17:15)
--- NOTE | 2017-08-01 17:16 | PD ---
HPI Chief Complaint: Abdominal Pain Time Seen by Provider: 16:55 Travel History International Travel<30 days: No Contact w/Intl Traveler<30days: No Traveled to known affect area: No History of Present Illness HPI 27-year-old female history of renal transplant presents for evaluation of abdominal pain. Symptoms initially started almost 1 week ago. Pain is primarily localized to left lower quadrant of the abdomen, sharp, constant. She was seen here for evaluation of this pain a July 28. She had a CT abdomen and pelvis, blood work, urinalysis, culture and chest x-ray, renal ultrasound. She was found to have a simple cyst on the left ovary. She was told return if the left lower quadrant pain worsened in case of torsion. She reports that her pain has been worse since yesterday which prompted evaluation. She endorses some nausea. She reports that she is on oxycodone chronically for left arm nerve pain. She sees a pain management doctor in the [place] region - she reports that she moved to [facility] one year ago. She was prescribed oxycodone when she was seen here however she has run out. She has no other complaints. PFSH Past Medical History Hx Anticoagulant Therapy: Yes (Warfarin) Anemia: Yes Asthma: Yes Blood Disorders: No Anxiety: Yes Depression: No Heart Rhythm Problems: Yes Cancer: No Cardiovascular Problems: Yes (arrythmia) High Cholesterol: No Chemotherapy: No Chest Pain: Yes Congestive Heart Failure: No COPD: No Diabetes: No Dialysis: Yes (2012) Diminished Hearing: No Deep Vein Thrombosis: Yes Endocrine: Yes (GLOMERLONEPHRITIS) Gastrointestinal Disorders: Yes (IBS) GERD: Yes Genitourinary: Yes Hypertension: Yes Immune Disorder: No Implanted Vascular Access Dvce: Yes Musculoskeletal: No Neurologic: No Psychiatric: Yes Reproductive: Yes (hemorrhagic cyst in the uterus ) Respiratory: Yes (asthma) Immunizations Current: Yes Migraines: Yes Pneumonia: Yes Radiation Therapy: No Renal Failure: Yes Sleep Apnea: No Thyroid Disease: Yes (parathyroidectomy ) ?: Not Ovarian Cysts: Yes Past Surgical History Abdominal Surgery: Yes (PERITONEAL CATHETER PLACEMENT/REMOVAL) Body Medical Devices: USED TO HAVE A FISTULA Endocrine Surgery: Yes (KIDNEY TRANSPLANT X 2/PARATHYROIDECTOMY) Genitourinary Surgery: Yes (bilateral kidneys transplant) Gynecologic Surgery: Yes (HEMORRAGIC CYST) Neurologic Surgery: Yes Tonsillectomy: Yes Other Surgery: Yes (Left arm AV fistula(REMOVED") Social History Alcohol Use: No Tobacco Use: No Substance Use: No Allergies-Medications (Allergen,Severity, Reaction): Coded Allergies: enalaprilat (Unverified Allergy, Severe, Swelling, 07/28/17) losartan (Unverified Allergy, Severe, Swelling, 07/28/17) vancomycin (Unverified Allergy, Severe, Anaphylaxis, 07/28/17) Reported Meds & Prescriptions Reported Meds & Active Scripts Active Percocet (Oxycodone-Acetaminophen) 5-325 mg Tab 1 Tab PO Q6H PRN Calcium Oyster Shell (Oyster Shell) 500 Mg Calcium (1250 Mg) Tab 2,000 Mg PO BID Rocaltrol (Calcitriol) 0.25 Mcg Cap 0.5 Mcg PO BIDPC Benadryl Allergy (Diphenhydramine HCl) 25 Mg Cap 1 Tab PO Q 6 HOUR Reported Cellcept (Mycophenolate Mofetil) 500 Mg Tab 1,500 Mg PO BID Prednisone 10 Mg Tab 10 Mg PO DAILY Amlodipine (Amlodipine Besylate) 5 Mg Tab 5 Mg PO DAILY Famotidine 10 Mg Tab 10 Mg PO BID Tacrolimus 1 Mg Cap 4 Mg PO BID Warfarin 10 Mg Tab 10 Mg PO HS Lyrica (Pregabalin) 100 Mg Cap 100 Mg PO BID Percocet (Oxycodone-Acetaminophen) 10-325 mg Tab 1 Tab PO Q4H PRN Review of Systems Except as stated in HPI: all other systems reviewed are Neg Physical Exam Narrative GENERAL: Well-developed well-nourished female in no acute distress SKIN: Warm and dry. HEAD: Atraumatic. Normocephalic. EYES: Pupils equal and round. No scleral icterus. No injection or drainage. ENT: No nasal bleeding or discharge. Mucous membranes pink and moist. NECK: Trachea midline. No JVD. CARDIOVASCULAR: Regular rate and rhythm. No murmur appreciated. RESPIRATORY: No accessory muscle use. Clear to auscultation. Breath sounds equal bilaterally. GASTROINTESTINAL: Abdomen soft, focal left lower quadrant tenderness without guarding but the patient is wincing. No CVA tenderness. Pelvic examination performed in the presence of a female nurse reveals some white discharge, negative cervical motion tenderness, mild left adnexal tenderness. MUSCULOSKELETAL: No obvious deformities. No clubbing. No cyanosis. No edema. NEUROLOGICAL: Awake and alert. No obvious cranial nerve deficits. Motor grossly within normal limits. Normal speech. Data Data Last Documented VS Vital Signs Date Time Temp Pulse Resp B/P (MAP) Pulse Ox O2 Delivery O2 Flow Rate FiO2 08/01/17 18:50 77 18 120/76 (91) 99 08/01/17 16:46 98.9 Room Air Orders Orders Gc And Chlamydia Pcr (08/01/17 17:05) Wet Prep Profile (08/01/17 17:05) Ua Includes Microscopic (08/01/17 17:05) Us Pelvis Comp W Doppler (08/01/17 17:05) Ed Urine Pregnancytest Poc (08/01/17 17:05) Hydromorphone Pf Inj (Dilaudid Pf Inj) (08/01/17 17:15) Ondansetron Inj (Zofran Inj) (08/01/17 17:15) Labs Laboratory Tests Test 08/01/17 17:30 08/01/17 18:32 Urine Color YELLOW Urine Turbidity CLOUDY Urine pH 6.0 Urine Specific [place] 1.027 Urine Protein 30 mg/dL Urine Glucose (UA) NEG mg/dL Urine Ketones NEG mg/dL Urine Occult Blood NEG Urine Nitrite NEG Urine Bilirubin NEG Urine Urobilinogen 2.0 MG/DL Urine Leukocyte Esterase TRACE Urine RBC 1 /hpf Urine WBC 2 /hpf Urine Squamous Epithelial Cells 124 /hpf Urine Mucus MANY /lpf Microscopic Urinalysis Comment CULT NOT INDICATED Clue Cells (Wet Prep) NONE SEEN Vaginal Trichomonas (Wet Prep) NONE SEEN Vaginal Yeast (Wet Prep) NONE SEEN MDM Medical Decision Making Medical Screen Exam Complete: Yes Emergency Medical Condition: Yes Medical Record Reviewed: Yes Differential Diagnosis PID, diverticulitis, ovarian cyst, ovarian torsion, UTI Narrative Course Repeat Doppler ultrasound of the pelvis performed today reveals no acute abnormalities. Pelvic examination revealed some white discharge. Wet prep is negative. Chlamydia and gonorrhea probes are pending. No clinical evidence of PID. She feels improved after the administration of analgesics and she is declining any prescription pain medicine. She is stable for discharge, outpatient follow-up. 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 Return for any emergent medical conditions. Med/Other Pt SpecificInfo: No Change to Meds Disposition: DISCHARGE HOME Condition: Stable Sudhir Menjivar Aug 01, 2017 17:16
--- NOTE | 2017-08-01 17:58 | RADRPT ---
EXAM DATE/TIME: 08/01/2017 17:26 [facility] COMPARISON: CT ABDOMEN & PELVIS W/O CONTRAST, July 28, 2017, 15:51. US PELVIS,COMP,W DOPPLER, July 28 017, 17:17. INDICATIONS : Pelvic pain. MEDICAL HISTORY : Hypertension. Gastroesophageal reflux disease. Thyroid disease. Irregular heartbeat. Asthma. Pneumoni a. IBS. Ovarian cysts. Renal failure. History of dialysis. Glomerulonephritis. Anxiety. Anemia. Blood transfusion. Pulmonary embolism. Anticoagulant therapy. SURGICAL HISTORY : Tonsillectomy. Parathyroidectomy. Renal transplant x 2. Ovarian cyst removal. Right rotator cuff rep air. Peritoneal catheter. Lymph node removal. ENCOUNTER: Subsequent ACUITY: 2 weeks PAIN SCORE: 7/10 LOCATION: Bilateral pelvis MEASUREMENTS: UTERUS: 7.8 x 4.9 x 3.6 cm ENDOMETRIAL STRIPE: 3 mm RIGHT OVARY: 3.8 x 1.8 x 2.6 cm LEFT OVARY: 3.0 x 2.2 x 1.7 cm FINDINGS: UTERUS: The myometrium has homogeneous echotexture without mass. RIGHT OVARY: Ovary contains no mass or significant cystic lesion. Blood flow is documented. LEFT OVARY: Ovary contains no mass or significant cystic lesion. Blood flow is documented. MISCELLANEOUS: No free fluid. There is a left lower quadrant renal transplant. CONCLUSION: Normal transabdominal pelvis ultrasound. Vinny Carrero MD on August 01, 2017 at 17:54 Board Certified Radiologist. This report was verified electronically.
[2017-08-01 18:17] LABS: BLOOD, URINE NEG (NEG); COMMENT (UR) CULT NOT INDICATED; GLUCOSE,URINE NEG (NEG); KETONE, URINE NEG (NEG); MUCUS URINE MANY /lpf (OCC); NITRITE,URINE NEG (NEG); SQUAMOUS EPITHELIAL CELL URINE 124 /hpf (0-5); URINE COLOR YELLOW (YELLW/STRAW)
[2017-08-01 18:50] VITALS: BP 120/76; PULSE 77; RESP 18; O2SAT 99
[2017-08-01 20:46] LABS: CHLAMYDIA PCR DETECTED (NOT DETECT); NEISSERIA PCR NOT DETECTED (NOT DETECT)
== END 2017-08-01 20:03 | disposition home or self-care (01) ==
LOC: NEPE 16:43
DX: R10.32 Left lower quadrant pain (principal); R11.0 Nausea; D64.9 Anemia, unspecified; J45.909 Unspecified asthma, uncomplicated; F41.9 Anxiety disorder, unspecified; K58.9 Irritable bowel syndrome, unspecified; K21.9 Gastro-esophageal reflux disease without esophagitis; I10 Essential (primary) hypertension; Z86.718 Personal history of other venous thrombosis and embolism
CPT/HCPCS: 76856; 81001; 84703; 87210; 87491; 87591; 93975; 96374; 96375; 99285; J1170; J2405

== ENCOUNTER 2017-09-29 12:12 | Emergency (ER) | payer MEDICARE, BC ==
[~2017-09-29] VITALS: Ht 165.1 cm; Wt 82.0 kg
[2017-09-29 12:13] VITALS: BP 149/97; PULSE 96; RESP 20; TEMP 98.9; O2SAT 100
[2017-09-29 13:18] LABS: AUTOMATED NEUTROPHIL # 1.2 TH/MM3 (1.8-7.7); BASOPHIL % 1.3 % (0.0-2.0); EOSINOPHIL # 0.4 TH/MM3 (0-0.4); EOSINOPHIL % 12.7 % (0.0-4.0); HEMATOCRIT 35.3 % (35.0-46.0); HEMOGLOBIN 11.8 GM/DL (11.6-15.3); LYMPH % 41.4 % (9.0-44.0); LYMPHOCYTE # 1.4 TH/MM3 (1.0-4.8); MEAN CELL VOLUME 92.2 FL (80.0-100.0); MEAN CORPUSCULAR HEMOGLOBIN 30.9 PG (27.0-34.0); MEAN CORPUSCULAR HGB CONC 33.5 % (32.0-36.0); MEAN PLATELET VOLUME 8.7 FL (7.0-11.0); MONO % 7.2 % (0.0-8.0); MONOCYTE # 0.2 TH/MM3 (0-0.9); NEUT % 37.4 % (16.0-70.0); PLATELET COUNT 191 TH/MM3 (150-450); RED BLOOD COUNT 3.83 MIL/MM3 (4.00-5.30); RED CELL DISTRIBUTION WIDTH 13.7 % (11.6-17.2); WHITE BLOOD COUNT 3.3 TH/MM3 (4.0-11.0)
[2017-09-29 13:27] LABS: PROTHROMBIN TIME - PATIENT 10.4 SEC (9.8-11.6)
[2017-09-29 13:33] LABS: BILIRUBIN, URINE NEG (NEG); BLOOD, URINE NEG (NEG); GLUCOSE,URINE NEG (NEG); KETONE, URINE NEG (NEG); MUCUS URINE FEW /lpf (OCC); NITRITE,URINE NEG (NEG); PH, URINE 5.5 (5.0-8.5); SQUAMOUS EPITHELIAL CELL URINE 27 /hpf (0-5); TRANSITIONAL EPI CELLS, URINE <1 /hpf; URINE COLOR YELLOW (YELLW/STRAW); URINE LEUKOCYTE ESTERASE NEG (NEG)
[2017-09-29 13:50] LABS: ALBUMIN 3.9 GM/DL (3.4-5.0); CALCIUM 7.3 MG/DL (8.5-10.1); CREATININE 0.95 MG/DL (0.50-1.00); TOTAL BILIRUBIN ADULT 0.4 MG/DL (0.2-1.0); TOTAL PROTEIN 8.1 GM/DL (6.4-8.2)
[2017-09-29 14:00] VITALS: BP 138/86; PULSE 89; RESP 16; TEMP 97.8; O2SAT 99
[2017-09-29 14:12] LABS: CALCIUM-PROTEIN CORRECTED 6.9 MG/DL (8.5-10.1)
--- NOTE | 2017-09-29 15:14 | PD ---
HPI Chief Complaint: Abdominal Pain Time Seen by Provider: 14:53 Travel History International Travel<30 days: No Contact w/Intl Traveler<30days: No Traveled to known affect area: No History of Present Illness HPI 27yo F presented to the ED for LLQ abdominal pain. 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 Pt is worried because she is s/p renal transplant in 2012. She describes her pain as a waxing and waning throb that radiates down into her L groin. She rates it a 7/10. She also claims to have nausea from the pain. 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 She has had multiple abdominal surgeries and follows with nephrology at [facility] with Mikaela Sanchez. Pt's LMP was 09/16/2017. Pt denies any hematuria, virgil bright red blood from urethra, CVA tenderness, changes in bowel movements, burning with urination, abnormal vaginal discharge or blood per vagina. Modifying Factors: None Associated Signs & Symptoms: Left lower quadrant abdominal pain, injury Risk Factors: Transplanted kidney PFSH Past Medical History Hx Anticoagulant Therapy: Yes (Warfarin) Anemia: Yes Asthma: Yes Blood Disorders: No Anxiety: Yes Depression: No Heart Rhythm Problems: Yes Cancer: No Cardiovascular Problems: Yes (HTN) High Cholesterol: No Chemotherapy: No Chest Pain: Yes Congestive Heart Failure: No COPD: No Diabetes: No Dialysis: Yes (2012 ) Diminished Hearing: No Deep Vein Thrombosis: Yes Endocrine: Yes (GLOMERLONEPHRITIS) Gastrointestinal Disorders: Yes (IBS) GERD: Yes Genitourinary: Yes Hypertension: Yes Immune Disorder: No Implanted Vascular Access Dvce: Yes Musculoskeletal: No Neurologic: No Psychiatric: Yes Reproductive: Yes (hemorrhagic cyst in the uterus ) Respiratory: Yes (asthma) Immunizations Current: No Migraines: Yes Pneumonia: Yes Radiation Therapy: No Renal Failure: Yes Sleep Apnea: No Thyroid Disease: Yes (parathyroidectomy ) Tetanus Vaccination: > 5 Years Influenza Vaccination: Yes ?: Not LMP: 09/16/2017 : 0 Para: 0 Miscarriage: 0 : 0 Ovarian Cysts: Yes Past Surgical History Abdominal Surgery: Yes (PERITONEAL CATHETER PLACEMENT/REMOVAL) Body Medical Devices: USED TO HAVE A FISTULA Endocrine Surgery: Yes (KIDNEY TRANSPLANT /PARATHYROIDECTOMY) Genitourinary Surgery: Yes (kidney transplant) Gynecologic Surgery: Yes (HEMORRAGIC CYST) Neurologic Surgery: Yes Tonsillectomy: Yes Other Surgery: Yes (Left arm AV fistula(REMOVED") Social History Alcohol Use: No Tobacco Use: No Substance Use: No Allergies-Medications (Allergen,Severity, Reaction): Coded Allergies: enalaprilat (Unverified Allergy, Severe, Swelling, 07/28/17) losartan (Unverified Allergy, Severe, Swelling, 07/28/17) vancomycin (Unverified Allergy, Severe, Anaphylaxis, 07/28/17) Reported Meds & Prescriptions Reported Meds & Active Scripts Active Calcium Oyster Shell (Oyster Shell) 500 Mg Calcium (1250 Mg) Tab 2,000 Mg PO BID Rocaltrol (Calcitriol) 0.25 Mcg Cap 0.5 Mcg PO BIDPC Reported Cellcept (Mycophenolate Mofetil) 500 Mg Tab 1,500 Mg PO BID Prednisone 10 Mg Tab 10 Mg PO DAILY Amlodipine (Amlodipine Besylate) 5 Mg Tab 5 Mg PO DAILY Famotidine 10 Mg Tab 10 Mg PO BID Tacrolimus 1 Mg Cap 4 Mg PO BID Warfarin 10 Mg Tab 10 Mg PO HS Lyrica (Pregabalin) 100 Mg Cap 100 Mg PO BID Review of Systems Except as stated in HPI: all other systems reviewed are Neg Physical Exam Narrative GENERAL: 27yo F who is well-developed and well nourished. In mild distress and pleasant. Alert and oriented x3. SKIN: Warm and dry. Surgical scars noted on superior sternal border and right upper chest. HEAD: Atraumatic. Normocephalic. NECK: Trachea midline. No JVD. CARDIOVASCULAR: Tachycardic with regular rhythm. RESPIRATORY: No accessory muscle use. Clear to auscultation. Breath sounds equal bilaterally. GASTROINTESTINAL: Abdomen soft and nondistended. Hepatic and splenic margins not palpable. Mild tenderness in the LLQ that radiates to the suprapubic region. Post surgical scars noted on abdomen. MUSCULOSKELETAL: Extremities without clubbing, cyanosis, or edema. No obvious deformities. NEUROLOGICAL: Awake and alert. No obvious cranial nerve deficits. Motor grossly within normal limits. Normal speech. PSYCHIATRIC: Appropriate mood and affect; insight and judgment normal. 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 (09/29/17 14:59) Us Kidney / Transplant (09/29/17 14:59) Ed Discharge Order (09/29/17 16:36) Labs Laboratory Tests Test 09/29/17 12:55 White Blood Count 3.3 TH/MM3 Red Blood Count 3.83 MIL/MM3 Hemoglobin 11.8 GM/DL Hematocrit 35.3 % Mean Corpuscular Volume 92.2 FL Mean Corpuscular Hemoglobin 30.9 PG Mean Corpuscular Hemoglobin Concent 33.5 % Red Cell Distribution Width 13.7 % Platelet Count 191 TH/MM3 Mean Platelet Volume 8.7 FL Neutrophils (%) (Auto) 37.4 % Lymphocytes (%) (Auto) 41.4 % Monocytes (%) (Auto) 7.2 % Eosinophils (%) (Auto) 12.7 % Basophils (%) (Auto) 1.3 % Neutrophils # (Auto) 1.2 TH/MM3 Lymphocytes # (Auto) 1.4 TH/MM3 Monocytes # (Auto) 0.2 TH/MM3 Eosinophils # (Auto) 0.4 TH/MM3 Basophils # (Auto) 0.0 TH/MM3 CBC Comment DIFF FINAL Differential Comment Prothrombin Time 10.4 SEC Prothromb Time International Ratio 1.0 RATIO Activated Partial Thromboplast Time 25.6 SEC Urine Color YELLOW Urine Turbidity HAZY Urine pH 5.5 Urine Specific [place] 1.024 Urine Protein 30 mg/dL Urine Glucose (UA) NEG mg/dL Urine Ketones NEG mg/dL Urine Occult Blood NEG Urine Nitrite NEG Urine Bilirubin NEG Urine Urobilinogen LESS THAN 2.0 MG/DL Urine Leukocyte Esterase NEG Urine RBC 1 /hpf Urine WBC 4 /hpf Urine Squamous Epithelial Cells 27 /hpf Urine Transitional Epithelial Cells <1 /hpf Urine Mucus FEW /lpf Microscopic Urinalysis Comment CULT NOT INDICATED Blood Urea Nitrogen 13 MG/DL Creatinine 0.95 MG/DL Random Glucose 88 MG/DL Total Protein 8.1 GM/DL Albumin 3.9 GM/DL Calcium Level 7.3 MG/DL Alkaline Phosphatase 49 U/L Aspartate Amino Transf (AST/SGOT) 19 U/L Alanine Aminotransferase (ALT/SGPT) 15 U/L Total Bilirubin 0.4 MG/DL Sodium Level 139 MEQ/L Potassium Level 4.1 MEQ/L Chloride Level 106 MEQ/L Carbon Dioxide Level 28.0 MEQ/L Anion Gap 5 MEQ/L Estimat Glomerular Filtration Rate 85 ML/MIN Protein Corrected Calcium 6.9 MG/DL Lipase 188 U/L [facility] Medical Decision Making Medical Screen Exam Complete: Yes Emergency Medical Condition: Yes Medical Record Reviewed: Yes Interpretation(s) Laboratory Tests Test 09/29/17 12:55 White Blood Count 3.3 TH/MM3 (4.0-11.0) Red Blood Count 3.83 MIL/MM3 (4.00-5.30) Eosinophils (%) (Auto) 12.7 % (0.0-4.0) Neutrophils # (Auto) 1.2 TH/MM3 (1.8-7.7) Urine Turbidity HAZY (CLEAR) Urine Protein 30 mg/dL (NEG-TRACE) Urine Mucus FEW /lpf (OCC) Calcium Level 7.3 MG/DL (8.5-10.1) Estimat Glomerular Filtration Rate 85 ML/MIN (>89) Protein Corrected Calcium 6.9 MG/DL (8.5-10.1) Last 24 hours Impressions Renal Ultrasound 09/29/17 [id number] Signed Impressions: Service Date/Time: September 15:38 - CONCLUSION: Normal examination. On one of the images the peak systolic velocity of the renal artery is 248 cm/s, previously was 223 cm/s. Marc Rider MD Pelvis Ultrasound 09/29/17 1459 Signed Impressions: Service Date/Time: September 15:30 - CONCLUSION: Normal examination. The patient does have a renal transplant in the pelvis without hydronephrosis or obvious complication. Marc Rider MD Differential Diagnosis Abdominal wall contusion versus transplant kidney injury versus intra-abdominal injuries Narrative Course Abdomen is fairly benign. An ultrasound was done of the left lower quadrant and pelvic areas and did not show any signs of acute processes or injuries. Transplant kidney appears to be doing well, good flow, no signs of injuries. Lab work was normal. UA was negative. At this point, my plan would be to release the patient would follow-up to primary care physician. Return for any worsening in pain or new symptoms as needed. The plan was discussed with her and she states understanding. Diagnosis Primary Impression: Abdominal wall contusion Disposition: 01 DISCHARGE HOME Condition: Stable SoonOskar daigle MD Sep 29, 2017 15:14
--- NOTE | 2017-09-29 16:17 | RADRPT ---
EXAM DATE/TIME: 09/29/2017 15:30 [facility] COMPARISON: No previous studies available for comparison. INDICATIONS : Cysts. MEDICAL HISTORY : Hypertension. Gastroesophageal reflux disease. Glasses. Anticoagulant therapy. Deep vein thrombosis . Asthma. Irritable bowel syndrome. Ovarian cysts. Glomerlonephritis. SURGICAL HISTORY : Tonsillectomy. Parathyroidectomy. Peritoneal catheter placement/removal. Kidney transplant. Right rotator cuff surgery. Left arm AV fistula. ENCOUNTER: Subsequent ACUITY: 1 day PAIN SCORE: 5/10 LOCATION: Bilateral pelvis MEASUREMENTS: UTERUS: 7.3 x 5.1 x 4.0 cm ENDOMETRIAL STRIPE: 6 mm RIGHT OVARY: 2.8 x 2.8 x 1.5 cm LEFT OVARY: 3.6 x 2.6 x 1.8 cm FINDINGS: UTERUS: The myometrium has homogeneous echotexture without mass. RIGHT OVARY: Ovary contains no mass or significant cystic lesion. LEFT OVARY: Ovary contains no mass or significant cystic lesion. MISCELLANEOUS: No free fluid. CONCLUSION: Normal examination. The patient does have a renal transplant in the pelvis without hydronephrosis or obvious complication. Marc Rider MD on September 29, 2017 at 16:15 Board Certified Radiologist. This report was verified electronically.
--- NOTE | 2017-09-29 16:25 | RADRPT ---
EXAM DATE/TIME: 09/29/2017 15:38 [facility] COMPARISON: No previous studies available for comparison. INDICATIONS : Trauma. MEDICAL HISTORY : Hypertension. Gastroesophageal reflux disease. Glasses. Anticoagulant therapy. Deep vein thrombosis . Asthma. Irritable bowel syndrome. Ovarian cysts. Glomerlonephritis. SURGICAL HISTORY : Tonsillectomy. Parathyroidectomy. Peritoneal catheter placement/removal. Kidney transplant. Right rotator cuff surgery. Left arm AV fistula. ENCOUNTER: Subsequent ACUITY: 1 day PAIN SCORE: 5/10 LOCATION: Left lower quadrant MEASUREMENTS: TRANSPLANT KIDNEY: 12.9 x 5.4 x 4.9 cm LOCATION: Left lower quadrant. PREVIOUS ULTRASOUND: Jul 28 2017 PREVIOUS ARCUATE ARTERIES INDEX: Upper - 0.5 Mid - 0.5 Lower - 0.5 ARCUATE ARTERIES RESISTIVE INDEX: Upper - 0.5 Mid - 0.5 Lower - 0.5 RA/EIA Ratio: 1.0 MAIN RENAL ARTERY VELOCITY: (cm/sec): 158 MAIN RENAL VEIN: Patent EXTERNAL ILIAC ARTERY VELOCITY (cm/sec): 157.4 * NORMAL DOPPLER FINDINGS Arcuate arteries - RI = 0.6 - 0.8 Renal artery = under 200 cm/sec Renal vein = May be monophasic with continuous flow or demonstrate some pulsatility with cardiac cycl e FINDINGS: TRANSPLANT KIDNEY: Normal cortical thickness and echotexture. No hydronephrosis, stone, or mass. No peritransplant flu id collection. URINARY BLADDER: Within normal limits given the degree of distension. CONCLUSION: Normal examination. On one of the images the peak systolic velocity of the renal artery is 248 cm/s, previously was 223 cm/s. Marc Rider MD on September 29, 2017 at 16:22 Board Certified Radiologist. This report was verified electronically.
[2017-09-29 16:48] VITALS: BP 133/85; TEMP 97.9
== END 2017-09-29 16:45 | disposition home or self-care (01) ==
LOC: NEPE 12:12
DX: S30.1XXA Contusion of abdominal wall, initial encounter (principal); W50.0XXA Accidental hit or strike by another person, initial encounter; Y93.89 Activity, other specified; Z94.0 Kidney transplant status
CPT/HCPCS: 76776; 76856; 80053; 81001; 83690; 84703; 85025; 85610; 85730; 99285

== ENCOUNTER 2017-12-07 12:19 | Emergency (ER) | payer BC, MEDICARE, OTHER ==
[~2017-12-07] VITALS: Ht 165.1 cm; Wt 80.0 kg
[~2017-12-07 12:19] MED LIST changes: -BENA25CA4 PO; -PERC10TA27 PO; -PERC5TAB12 PO
[2017-12-07 12:39] VITALS: BP 161/115; PULSE 109; RESP 19; TEMP 98.6; O2SAT 96
[2017-12-07] MEDS ORDERED: MYCO500 PO ×2 (15:09)
[2017-12-07 15:10] VITALS: BP 159/106; PULSE 89; RESP 16; O2SAT 100
--- NOTE | 2017-12-07 15:37 | PD ---
HPI Chief Complaint: Edema Time Seen by Provider: 15:16 Travel History International Travel<30 days: No Contact w/Intl Traveler<30days: No Traveled to known affect area: No History of Present Illness HPI 27-year-old female presents to the emergency department with complaint of worsening of swelling in her neck and down her left arm and increased neck pain for the past 1 month and again worsening for the past 2 days. She has had swelling of her neck, neck pain and left arm pain since July. She is on Coumadin for history of left arm blood clot and PE. She states she has had stents placed. She has history of swelling in her neck since July and is now concerned because it spreading down her left arm. She has history of having a left arm graft and poor secondary to being on dialysis. She was on dialysis because of glomerulonephritis. 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 Reports paresthesias of the left hand. Reports decreased range of motion of the left approximately secondary to pain. Denies chest pain, shortness of breath, fever, vomiting. Has been taking Percocet that she is prescribed for her chronic pain with minimal symptom relief. She last took Percocet last night. Reports pain 7/10. Describes pain as shooting and pressure. Pain is worse with movement of her neck. Better at rest. 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 She says her neurologist is wanted her to do an MRI of her neck, but she has not followed up. She also stopped her Coumadin for 3 days at a time to get injections into her neck. Allergies to Cozaar, Vanco, Vasotec. History of median nerve damage, kidney failure. Has no other medical complaints. No other modifying factors or associated signs and symptoms. PFSH Past Medical History Hx Anticoagulant Therapy: Yes (Warfarin) Anemia: Yes Asthma: Yes Blood Disorders: No Anxiety: Yes Depression: No Heart Rhythm Problems: Yes Cancer: No Cardiovascular Problems: Yes (HTN) High Cholesterol: No Chemotherapy: No Chest Pain: Yes Congestive Heart Failure: No COPD: No Diabetes: No Dialysis: Yes (2012 ) Diminished Hearing: No Deep Vein Thrombosis: Yes Endocrine: Yes (GLOMERLONEPHRITIS) Gastrointestinal Disorders: Yes (IBS) GERD: Yes Genitourinary: Yes Hypertension: Yes Immune Disorder: No Implanted Vascular Access Dvce: Yes Musculoskeletal: No Neurologic: No Psychiatric: Yes Reproductive: Yes (hemorrhagic cyst in the uterus ) Respiratory: Yes (asthma) Immunizations Current: No Migraines: Yes Pneumonia: Yes Radiation Therapy: No Renal Failure: Yes Sleep Apnea: No Thyroid Disease: Yes (parathyroidectomy ) ?: Not LMP: 3-2-18 : 0 Para: 0 Miscarriage: 0 : 0 Ovarian Cysts: Yes Past Surgical History Abdominal Surgery: Yes (PERITONEAL CATHETER PLACEMENT/REMOVAL) Body Medical Devices: USED TO HAVE A FISTULA Endocrine Surgery: Yes (KIDNEY TRANSPLANT /PARATHYROIDECTOMY) Genitourinary Surgery: Yes (kidney transplant) Gynecologic Surgery: Yes (HEMORRAGIC CYST) Neurologic Surgery: Yes Tonsillectomy: Yes Other Surgery: Yes (Left arm AV fistula - REMOVED) Social History Alcohol Use: Yes (SOCIAL) Tobacco Use: No Substance Use: No Allergies-Medications (Allergen,Severity, Reaction): Coded Allergies: enalaprilat (Unverified Allergy, Severe, Swelling, 07/28/17) losartan (Unverified Allergy, Severe, Swelling, 07/28/17) vancomycin (Unverified Allergy, Severe, Anaphylaxis, 07/28/17) Reported Meds & Prescriptions Reported Meds & Active Scripts Active Coumadin (Warfarin) 10 Mg Tab 10 Mg PO DAILY Robaxin (Methocarbamol) 500 Mg Tab 500 Mg PO QID PRN Rocaltrol (Calcitriol) 0.25 Mcg Cap 0.5 Mcg PO BIDPC Reported Cellcept (Mycophenolate Mofetil) 500 Mg Tab 1,000 Mg PO HS Cellcept (Mycophenolate Mofetil) 500 Mg Tab 500 Mg PO DAILY Prednisone 10 Mg Tab 10 Mg PO DAILY Amlodipine (Amlodipine Besylate) 5 Mg Tab 5 Mg PO DAILY Famotidine 10 Mg Tab 10 Mg PO BID Tacrolimus 1 Mg Cap 4 Mg PO BID Warfarin 10 Mg Tab 10 Mg PO HS Lyrica (Pregabalin) 100 Mg Cap 100 Mg PO HS Review of Systems Except as stated in HPI: all other systems reviewed are Neg Physical Exam Narrative GENERAL: Well-nourished, well-developed patient, in no acute distress; afebrile , nontoxic-appearing SKIN: Warm and dry. HEAD: Atraumatic. Normocephalic. EYES: Pupils equal and round. No scleral icterus. No injection or drainage. ENT: Mucosa pink and moist. Airway patent. NECK: Trachea midline. No lymphadenopathy. Left lateral neck area with minimal edema noted and without crepitance. Bilateral musculature of the neck is tenderness on palpation active rotation of the neck to approximately 45 left and right; patient guarding. No midline point tenderness on palpation of the cervical spine. No obvious deformities. CARDIOVASCULAR: Regular rate and rhythm. No murmur appreciated. RESPIRATORY: No accessory muscle use. Clear to auscultation. Breath sounds equal bilaterally. GASTROINTESTINAL: Abdomen soft, non-tender, nondistended. Hepatic and splenic margins not palpable. Bowel sounds are active 4 quadrants. 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 No obvious deformities. No clubbing. No cyanosis. No edema. Normal gait. BACK: No point tenderness on palpation of spine. No obvious deformities. NEUROLOGICAL: Awake and alert. Oriented 3. No obvious cranial nerve deficits. Motor grossly within normal limits. Normal speech. Moves all extremities. 5/5 strength to all extremities. Sensory intact. PSYCHIATRIC: Appropriate mood and affect; insight and judgment normal. Data Data Last Documented VS Vital Signs Date Time Temp Pulse Resp B/P (MAP) Pulse Ox O2 Delivery O2 Flow Rate FiO2 12/07/17 18:07 12/07/17 15:10 89 16 100 Room Air 12/07/17 12:39 98.6 Orders Orders Complete Blood Count With Diff (12/07/17 12:51) Basic Metabolic Panel (Bmp) (12/07/17 12:51) Prothrombin Time / Inr (Pt) (12/07/17 12:51) Us Arm Venous Doppler (12/07/17 ) Oxycodone-Acetamin 10-325 Mg (Percocet 1 (12/07/17 15:45) Ed Discharge Order (12/07/17 17:47) Orphenadrine Inj (Norflex Inj) (12/07/17 18:00) Labs Laboratory Tests Test 12/07/17 14:43 White Blood Count 3.8 TH/MM3 Red Blood Count 4.04 MIL/MM3 Hemoglobin 12.3 GM/DL Hematocrit 36.9 % Mean Corpuscular Volume 91.5 FL Mean Corpuscular Hemoglobin 30.3 PG Mean Corpuscular Hemoglobin Concent 33.2 % Red Cell Distribution Width 13.3 % Platelet Count 233 TH/MM3 Mean Platelet Volume 9.5 FL Neutrophils (%) (Auto) 50.8 % Lymphocytes (%) (Auto) 35.9 % Monocytes (%) (Auto) 6.0 % Eosinophils (%) (Auto) 6.5 % Basophils (%) (Auto) 0.8 % Neutrophils # (Auto) 1.9 TH/MM3 Lymphocytes # (Auto) 1.4 TH/MM3 Monocytes # (Auto) 0.2 TH/MM3 Eosinophils # (Auto) 0.2 TH/MM3 Basophils # (Auto) 0.0 TH/MM3 CBC Comment DIFF FINAL Differential Comment Prothrombin Time 11.0 SEC Prothromb Time International Ratio 1.1 RATIO Blood Urea Nitrogen 10 MG/DL Creatinine 1.13 MG/DL Random Glucose 82 MG/DL Calcium Level 7.8 MG/DL Sodium Level 141 MEQ/L Potassium Level 3.5 MEQ/L Chloride Level 108 MEQ/L Carbon Dioxide Level 22.2 MEQ/L Anion Gap 11 MEQ/L Estimat Glomerular Filtration Rate 70 ML/MIN [facility] Medical Decision Making Medical Screen Exam Complete: Yes Emergency Medical Condition: Yes Medical Record Reviewed: Yes Differential Diagnosis DVT, chronic arm pain, musculoskeletal pain, neck pain Narrative Course 27-year-old female with history of left upper arm graft/port for dialysis, history of blood clots and is on Coumadin. Her findings seem to be consistent with musculoskeletal. Neurologist is considered outpatient MRI of the cervical spine, per the patient, and she has not followed up. Dr. Meyer evaluated the patient and we discussed a treatment plan. Percocet and left upper arm venous Doppler ultrasound ordered. CBC, BMP unremarkable. INR 1.1. Instructed patient to continue Coumadin as prescribed. A refill for Coumadin was provided. Instructed patient to follow- up for INR recheck. Left upper arm venous Doppler ultrasound concludes: Upper Extremity Ultrasound 12/07/17 0000 Signed Impressions: Service Date/Time: Thursday, December 07, 2017 16:22 - CONCLUSION: No evidence of DVT. Axel Johnson MD Ultrasound findings discussed with the patient. Findings discussed with Dr. Meyer and he agrees with discharge and outpatient plan of care. Instructed patient to follow-up with neurologist. Instructed patient to follow up with primary care provider. Patient verbalizes understanding and agreement with treatment plan. Patient is medically cleared and stable for discharge. Discussed reasons to return to the emergency department. Patient agrees with treatment plan. The patients vital signs are stable and the patient is stable for outpatient follow-up and treatment. Patient discharged home, stable and in no acute distress. Diagnosis Primary Impression: Left arm pain Additional Impression: Neck pain Referrals: Neurologist Primary Care Physician Patient Instructions: Arm Pain (ED), General Instructions, Neck Pain (ED) Additional Instructions: Tylenol or ibuprofen as directed and as needed for pain Robaxin as prescribed and as needed for muscle spasms Continue Coumadin as prescribed Follow-up with your primary care provider for next INR recheck Heating pad and/or ice to affected area to reduce pain Avoid aggravating activities; increase activity as tolerated Follow-up with primary care provider Return to emergency department immediately with worsening of symptoms Med/Other Pt SpecificInfo: Prescription(s) given, No Change to Meds Scripts Warfarin (Coumadin) 10 Mg Tab 10 MG PO DAILY for Prevent Blood Clot, #30 TAB 0 Refills Prov: Alexandria Cardenas 12/07/17 Methocarbamol (Robaxin) 500 Mg Tab 500 MG PO QID Y for MUSCLE SPASM, #30 TAB 0 Refills Prov: Alexandria Cardenas 12/07/17 Disposition: 01 DISCHARGE HOME Condition: Stable Alexandria Cardenas Dec 07, 2017 15:37
[2017-12-07] MEDS ORDERED: oxyCODONE/ACETAMINOPHEN 10 MG/325 MG TAB PO ONE (15:45)
[2017-12-07 17:15] LABS: AUTOMATED NEUTROPHIL # 1.9 TH/MM3 (1.8-7.7); BASOPHIL % 0.8 % (0.0-2.0); EOSINOPHIL # 0.2 TH/MM3 (0-0.4); EOSINOPHIL % 6.5 % (0.0-4.0); HEMATOCRIT 36.9 % (35.0-46.0); HEMOGLOBIN 12.3 GM/DL (11.6-15.3); LYMPH % 35.9 % (9.0-44.0); LYMPHOCYTE # 1.4 TH/MM3 (1.0-4.8); MEAN CELL VOLUME 91.5 FL (80.0-100.0); MEAN CORPUSCULAR HEMOGLOBIN 30.3 PG (27.0-34.0); MEAN CORPUSCULAR HGB CONC 33.2 % (32.0-36.0); MEAN PLATELET VOLUME 9.5 FL (7.0-11.0); MONOCYTE # 0.2 TH/MM3 (0-0.9); NEUT % 50.8 % (16.0-70.0); PLATELET COUNT 233 TH/MM3 (150-450); RED BLOOD COUNT 4.04 MIL/MM3 (4.00-5.30); RED CELL DISTRIBUTION WIDTH 13.3 % (11.6-17.2); WHITE BLOOD COUNT 3.8 TH/MM3 (4.0-11.0)
--- NOTE | 2017-12-07 17:22 | RADRPT ---
EXAM DATE/TIME: 12/07/2017 16:22 [facility] COMPARISON: CHEST SINGLE AP, July 28, 2017, 13:56. US ARM LEFT VENOUS DOPPLER, February 26, 2017, 14:20. INDICATIONS : Left arm swelling. MEDICAL HISTORY : Hypertension. Gastroesophageal reflux disease. Glasses. Anticoagulant therapy. Deep vein thrombosis. Asthma. Irritable bowel syndrome. Ovarian cysts. Glomerlonephritis. SURGICAL HISTORY : Tonsillectomy. Parathyroidectomy. Peritoneal catheter placement/removal. Kidney transplant. Right rot ator cuff surgery. Left arm AV fistula. ENCOUNTER: Subsequent ACUITY: 1 day PAIN SCORE: 3/10 LOCATION: Left arm. FINDINGS: There is spontaneous flow documented in the brachial, basilic, cephalic, axillary, and subclavian vei ns. The vessels are compressible and augmentation response is documented. No filling defects are se en. The flow is phasic with respiration. Direction of flow in the jugular vein is caudal. No vicente e in the stent compared to the prior study. CONCLUSION: No evidence of DVT. Axel Johnson MD on December 07, 2017 at 17:18 Board Certified Radiologist. This report was verified electronically.
[2017-12-07 17:40] LABS: BICARBONATE 22.2 MEQ/L (21.0-32.0); CALCIUM 7.8 MG/DL (8.5-10.1); CREATININE 1.13 MG/DL (0.50-1.00)
[2017-12-07 17:41] LABS: INTERNATIONAL NORMALIZED RATIO 1.1 RATIO
[2017-12-07] MEDS ORDERED: ROBA500T PO (17:41)
[2017-12-07] MEDS ORDERED: COUM10TA PO (17:46)
[2017-12-07] MEDS ORDERED: ORPHENADRINE INJ 60 MG/2 ML AMP IM ONE (18:00)
== END 2017-12-07 18:13 | disposition home or self-care (01) ==
LOC: NEPD 12:19
DX: M79.602 Pain in left arm (principal); M54.2 Cervicalgia; I10 Essential (primary) hypertension; Z79.01 Long term (current) use of anticoagulants
CPT/HCPCS: 80048; 85025; 85610; 93971; 96372; 99284; J2360

== ENCOUNTER 2017-12-12 22:49 | Emergency (ER) | payer BC, MEDICARE, OTHER ==
[~2017-12-12] VITALS: Ht 165.1 cm; Wt 82.9 kg
[~2017-12-12 22:49] MED LIST changes: -CALC500T30 PO; +COUM10TA PO; +ROBA500T PO
[2017-12-12] MEDS ORDERED: IOHEXOL 350 MG/ML 10 ML VIAL (for RAD DIAG) IVCONTRAST ONE (22:50)
[2017-12-12 22:59] VITALS: BP 155/86; PULSE 91; RESP 18; TEMP 98.6; O2SAT 99
[2017-12-13] VITALS: RESP 16; O2SAT 99
--- NOTE | 2017-12-13 00:07 | RADRPT ---
EXAM DATE/TIME: 12/12/2017 23:53 [facility] COMPARISON: CHEST SINGLE AP, July 28, 2017, 13:56. INDICATIONS : Chest and neck pain from unknown injury. MEDICAL HISTORY : None. SURGICAL HISTORY : Neck surgery. ENCOUNTER: Initial ACUITY: 1 week PAIN SCORE: 9/10 LOCATION: Bilateral chest FINDINGS: A single view of the chest demonstrates the lungs to be symmetrically aerated without evidence of mas s, infiltrate or effusion. The cardiomediastinal contours are unremarkable. Artificial cervical disc s noted. Vascular stent in the left axillary region.. CONCLUSION: No acute disease. Vinny Lopez MD on December 13, 2017 at 0:04 Board Certified Radiologist. This report was verified electronically.
--- NOTE | 2017-12-13 00:16 | PD ---
HPI Chief Complaint: Back/ Neck Pain or Injury Time Seen by Provider: 23:20 Travel History International Travel<30 days: No Contact w/Intl Traveler<30days: No Traveled to known affect area: No History of Present Illness HPI The patient is a 27 year old female who presents to the [facility] emergency department with a history of worsening pain and swelling in her neck over the last month. The patient reports that it is most prominent in the left side, however she also has it on the right. She reports that she first developed the swelling in July 2017. She reports that she has undergone a workup regarding it. 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 The patient reports that she is chronically anticoagulated on Coumadin. She reports that she takes 10 mg daily. She reports that she last took this yesterday. The patient reports that she has a primary care physician in [place]. She reports that she has had a kidney transplant and has been doing well from that standpoint since 2012. The patient reports having a history of neck surgery that includes parathyroidectomy and herniated disc resection in her cervical spine. She denies having any chest pain, chest pressure, or shortness of breath. She was seen in the emergency department on December 07 related to the symptoms and had an ultrasound that was negative for DVT. Blood work otherwise was unremarkable at that time. The patient reports that since yesterday she has been having increased pain and new pain in the left upper shoulder, left trapezius area. She reports that the pain is worse with moving her arms. On review of systems otherwise, she denies having any recent fevers, cough or congestion, abdominal pain, vomiting, diarrhea, urinary symptoms, or neurologic symptoms. She denies having any pain swallowing. She denies having any hoarse quality to her voice. She has no difficulty swallowing liquids or solids. LMP: November 11, 2017. 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 Hx Anticoagulant Therapy: Yes (Warfarin) Anemia: Yes Asthma: Yes Blood Disorders: No Anxiety: Yes Depression: No Heart Rhythm Problems: Yes Cancer: No Cardiovascular Problems: Yes (HTN) High Cholesterol: No Chemotherapy: No Chest Pain: Yes Congestive Heart Failure: No COPD: No Diabetes: No Dialysis: Yes (2012 ) Diminished Hearing: No Deep Vein Thrombosis: Yes Endocrine: Yes (GLOMERLONEPHRITIS) Gastrointestinal Disorders: Yes (IBS) GERD: Yes Genitourinary: Yes Hypertension: Yes Immune Disorder: No Implanted Vascular Access Dvce: Yes Musculoskeletal: No Neurologic: No Psychiatric: Yes Reproductive: Yes (hemorrhagic cyst in the uterus ) Respiratory: Yes (asthma) Immunizations Current: No Migraines: Yes Pneumonia: Yes Radiation Therapy: No Renal Failure: Yes Sleep Apnea: No Thyroid Disease: Yes (parathyroidectomy ) ?: Not : 0 Para: 0 Miscarriage: 0 : 0 Ovarian Cysts: Yes Past Surgical History Narrative Surgical The patient's past surgical history is significant for left AV fistula placement and then removal, history of a peritoneal catheter placement and removal, history of parathyroidectomy, kidney transplant, ovarian cyst surgery, tonsillectomy, discectomy of the cervical spine Abdominal Surgery: Yes (PERITONEAL CATHETER PLACEMENT/REMOVAL) Body Medical Devices: USED TO HAVE A FISTULA Endocrine Surgery: Yes (KIDNEY TRANSPLANT /PARATHYROIDECTOMY) Genitourinary Surgery: Yes (kidney transplant) Gynecologic Surgery: Yes (HEMORRAGIC CYST) Neurologic Surgery: Yes Tonsillectomy: Yes Other Surgery: Yes (Left arm AV fistula - REMOVED) Social History Alcohol Use: Yes (SOCIAL) Tobacco Use: No Substance Use: No Allergies-Medications (Allergen,Severity, Reaction): Coded Allergies: enalaprilat (Unverified Allergy, Severe, Swelling, 12/12/17) losartan (Unverified Allergy, Severe, Swelling, 12/12/17) vancomycin (Unverified Allergy, Severe, Anaphylaxis, 12/12/17) Reported Meds & Prescriptions Reported Meds & Active Scripts Active Coumadin (Warfarin) 10 Mg Tab 10 Mg PO DAILY Robaxin (Methocarbamol) 500 Mg Tab 500 Mg PO QID PRN Rocaltrol (Calcitriol) 0.25 Mcg Cap 0.5 Mcg PO BIDPC Reported Cellcept (Mycophenolate Mofetil) 500 Mg Tab 1,000 Mg PO HS Cellcept (Mycophenolate Mofetil) 500 Mg Tab 500 Mg PO DAILY Prednisone 10 Mg Tab 10 Mg PO DAILY Amlodipine (Amlodipine Besylate) 5 Mg Tab 5 Mg PO DAILY Famotidine 10 Mg Tab 10 Mg PO BID Tacrolimus 1 Mg Cap 4 Mg PO BID Warfarin 10 Mg Tab 10 Mg PO HS Lyrica (Pregabalin) 100 Mg Cap 100 Mg PO HS Review of Systems Except as stated in HPI: all other systems reviewed are Neg General / Constitutional: No: Fever Eyes: No: Visual changes HENT: Positive: Neck Pain, Other (Swelling of her neck), No: Headaches, Neck Stiffness Cardiovascular: No: Chest Pain or Discomfort Respiratory: No: Shortness of Breath Gastrointestinal: No: Abdominal Pain Genitourinary: No: Dysuria Musculoskeletal: No: Pain Skin: No Rash Neurologic: No: Weakness, Focal Abnormalities, Change in Mentation, Slurred Speech, Sensory Disturbance Psychiatric: No: Depression Endocrine: No: Polydipsia Hematologic/Lymphatic: No: Easy Bruising Physical Exam Narrative General: The patient is a well-developed well-nourished female, uncomfortable appearing on arrival related to pain.. Head and Neck exam: Head is normocephalic atraumatic. Eyes: EOMI, pupils are equal round and reactive to light. Nose: Midline septum with pink mucous membranes Mouth: Dentition unremarkable. Moist mucus membranes. Posterior oropharynx is not erythematous. No tonsillar hypertrophy. Uvula midline. Airway patent. Neck: No palpable lymphadenopathy. No nuchal rigidity. No thyromegaly. The patient has soft tissue swelling in bilateral sides of the neck along the supraclavicular area. The patient there is no erythema, no warmth, no fluctuance. No rash associated with this. Cardiovascular: Regular rate and rhythm without murmurs, gallops, or rubs. Lungs: Clear to auscultation bilaterally. No wheezes, rhonchi, or rales. Abdomen: Soft, without tenderness to palpation in all 4 quadrants of the abdomen. No guarding, rebound, or rigidity. Normal bowel sounds are audible. No tenderness on palpation of McBurney's point. Negative Sigala sign. Extremities: No clubbing, cyanosis, or edema. 2+ pulses in all 4 extremities. The patient has soft tissue fatty deposits beneath bilateral arms in her axilla. Back: No spinous process tenderness to palpation. No costovertebral angle tenderness to palpation. The patient has tenderness on palpation along the left upper trapezius muscle without any erythema, edema, warmth, or rash noted. Neurologic Exam: Grossly nonfocal. Skin Exam: No rash noted. Intact skin that is warm and dry. Data Data Last Documented VS Vital Signs Date Time Temp Pulse Resp B/P (MAP) Pulse Ox O2 Delivery O2 Flow Rate FiO2 12/13/17 00:00 16 99 Room Air 12/12/17 22:59 98.6 91 155/86 (109) Orders Orders Electrocardiogram (12/12/17 23:45) Complete Blood Count With Diff (12/12/17 23:45) Comprehensive Metabolic Panel (12/12/17 23:45) Creatine Kinase (Cpk) (12/12/17 23:45) Ckmb (Isoenzyme) Profile (12/12/17 23:45) Troponin I (12/12/17 23:45) B-Type Natriuretic Peptide (12/12/17 23:45) Prothrombin Time / Inr (Pt) (12/12/17 23:45) Act Partial Throm Time (Ptt) (12/12/17 23:45) Urinalysis - C+S If Indicated (12/12/17 23:45) Chest, Single Ap (12/12/17 23:45) Iv Access Insert/Monitor (12/12/17 23:45) Ecg Monitoring (12/12/17 23:45) Oximetry (12/12/17 23:45) Ed Urine Pregnancytest Poc (12/12/17 23:45) Ct Soft Tiss Neck W Iv Cont (12/12/17 ) Thyroid Stimulating Hormone (12/12/17 23:45) Morphine Inj (Morphine Inj) (12/13/17 00:30) Ondansetron Inj (Zofran Inj) (12/13/17 00:30) CKMB (12/13/17 00:05) CKMB% (12/13/17 00:05) Ct Cerv Spine W Iv Cont (12/12/17 ) Iohexol 350 Inj (Omnipaque 350 Inj) (12/12/17 22:50) Calcium Gluconate Inj (Calcium Gluconate (12/13/17 02:00) Labs Laboratory Tests Test 12/13/17 00:05 White Blood Count 5.0 TH/MM3 Red Blood Count 3.41 MIL/MM3 Hemoglobin 10.6 GM/DL Hematocrit 30.9 % Mean Corpuscular Volume 90.5 FL Mean Corpuscular Hemoglobin 31.1 PG Mean Corpuscular Hemoglobin Concent 34.3 % Red Cell Distribution Width 13.1 % Platelet Count 231 TH/MM3 Mean Platelet Volume 8.6 FL Neutrophils (%) (Auto) 49.2 % Lymphocytes (%) (Auto) 32.7 % Monocytes (%) (Auto) 7.6 % Eosinophils (%) (Auto) 9.7 % Basophils (%) (Auto) 0.8 % Neutrophils # (Auto) 2.5 TH/MM3 Lymphocytes # (Auto) 1.6 TH/MM3 Monocytes # (Auto) 0.4 TH/MM3 Eosinophils # (Auto) 0.5 TH/MM3 Basophils # (Auto) 0.0 TH/MM3 CBC Comment DIFF FINAL Differential Comment Prothrombin Time 11.1 SEC Prothromb Time International Ratio 1.1 RATIO Activated Partial Thromboplast Time 26.5 SEC Blood Urea Nitrogen 12 MG/DL Creatinine 1.25 MG/DL Random Glucose 95 MG/DL Total Protein 7.5 GM/DL Albumin 3.4 GM/DL Calcium Level 6.7 MG/DL Alkaline Phosphatase 46 U/L Aspartate Amino Transf (AST/SGOT) 17 U/L Alanine Aminotransferase (ALT/SGPT) 9 U/L Total Bilirubin 0.3 MG/DL Sodium Level 142 MEQ/L Potassium Level 3.3 MEQ/L Chloride Level 105 MEQ/L Carbon Dioxide Level 27.3 MEQ/L Anion Gap 10 MEQ/L Estimat Glomerular Filtration Rate 62 ML/MIN Protein Corrected Calcium 6.6 MG/DL Total Creatine Kinase 200 U/L Creatine Kinase MB 0.9 NG/ML Creatine Kinase MB % 0.5 % Troponin I LESS THAN 0.02 NG/ML B-Type Natriuretic Peptide 21 PG/ML Thyroid Stimulating Hormone 3rd Gen 3.650 uIU/ML MDM Medical Decision Making Medical Screen Exam Complete: Yes Emergency Medical Condition: Yes Medical Record Reviewed: Yes Interpretation(s) Last Impressions Chest X-Ray 12/12/17 2345 Signed Impressions: Service Date/Time: Tuesday, December 12, 2017 23:53 - CONCLUSION: No acute disease. Vinny Lopez MD Neck CT 12/12/17 0000 Signed Impressions: Service Date/Time: Wednesday, December 13, 2017 01:11 - CONCLUSION: Negative Vinny Lopez MD Cervical Spine CT 12/12/17 0000 Signed Impressions: Service Date/Time: Wednesday, December 13, 2017 01:11 - CONCLUSION: Negative Vinny Lopez MD Differential Diagnosis Soft tissue abnormality in the neck could be related to fatty deposits, versus abscess, versus anasarca Narrative Course During the course of the patient's emergency department visit, the patient's history, examination, and differential diagnosis were reviewed with the patient. The patient was placed on a cafeteria monitor with oximetry and frequent blood pressure monitoring. The patient had IV access obtained and blood work sent for analysis. The patient had a EKG done on arrival that shows a sinus rhythm heart rate of 80, QRS duration 85 ms, QTC 431 ms. No other acute ST segment changes, no acute ST segment elevation. The patient was initially provided morphine for pain, Zofran for nausea. The patient's laboratory studies were reviewed and remarkable for a white count of 5, hemoglobin 10.6, platelets 231 with 9.7 eosinophils, CMP is remarkable for potassium of 3.3 which was supplemented orally, creatinine 1.25, protein corrected calcium 6.6 which was supplemented with calcium gluconate 1 g IV. ALT 9, CPK 200, cardiac enzymes within normal limits, BNP is 21, TSH 3.65, PT PTT within normal limits per Radiology studies were reviewed and remarkable for a chest x-ray that showed no acute abnormality. CT scan of the C-spine showed no acute abnormality. CT scan of the soft tissues of the neck shows no acute abnormality, no evidence of abscess or edema. The patient's results were discussed with her. The patient has had a parathyroidectomy and may not have been recently compliant with her calcium supplement. The patient was instructed to take a calcium supplement. She is given a prescription at discharge. She is encouraged to follow-up with her pain management doctor regarding the exacerbation of her neck pain. The patient is resting comfortably and feels better, is alert and in no distress. The patient's results and examination findings were discussed with the patient. The repeat examination is unremarkable and benign. The history, exam, diagnostic testing, and current condition do not suggest any significant pathology to warrant further testing, continued ED treatment, admission, or surgical evaluation at this point. The vital signs have been stable. The patient does not have uncontrollable pain, intractable vomiting, or other significant symptoms. The patient's condition is stable and appropriate for discharge. The patient will pursue further outpatient evaluation with a primary care physician or other designated or consulting physician as indicated in the discharge instructions. The patient expressed understanding and was agreeable with this plan. Diagnosis Primary Impression: Hypocalcemia Additional Impression: Neck pain Referrals: Pain Management Primary Care Physician Patient Instructions: Back Pain (ED), General Instructions, Hypocalcemia (ED), Neck Pain (ED) Scripts Cyclobenzaprine (Flexeril) 5 Mg Tab 5 MG PO TID Y for SPASM, #12 TAB 0 Refills Prov: Kylie Conner MD 12/13/17 Calcium Gluconate (Calcium Gluconate) 45 Mg Calcium (500 Mg) Tab 500 MG PO TID for Calcium Supplement for 30 Days, TAB 0 Refills 1 gram of salt is 93 mg elemental calcium. Prov: Kylie Conner MD 12/13/17 Disposition: 01 DISCHARGE HOME Condition: Stable Kylie Conner MD Dec 13, 2017 00:16
[2017-12-13 00:19] LABS: AUTOMATED NEUTROPHIL # 2.5 TH/MM3 (1.8-7.7); BASOPHIL % 0.8 % (0.0-2.0); EOSINOPHIL # 0.5 TH/MM3 (0-0.4); EOSINOPHIL % 9.7 % (0.0-4.0); HEMATOCRIT 30.9 % (35.0-46.0); HEMOGLOBIN 10.6 GM/DL (11.6-15.3); LYMPH % 32.7 % (9.0-44.0); LYMPHOCYTE # 1.6 TH/MM3 (1.0-4.8); MEAN CELL VOLUME 90.5 FL (80.0-100.0); MEAN CORPUSCULAR HEMOGLOBIN 31.1 PG (27.0-34.0); MEAN CORPUSCULAR HGB CONC 34.3 % (32.0-36.0); MEAN PLATELET VOLUME 8.6 FL (7.0-11.0); MONO % 7.6 % (0.0-8.0); MONOCYTE # 0.4 TH/MM3 (0-0.9); NEUT % 49.2 % (16.0-70.0); PLATELET COUNT 231 TH/MM3 (150-450); RED BLOOD COUNT 3.41 MIL/MM3 (4.00-5.30); RED CELL DISTRIBUTION WIDTH 13.1 % (11.6-17.2)
[2017-12-13 00:30] LABS: INTERNATIONAL NORMALIZED RATIO 1.1 RATIO; PROTHROMBIN TIME - PATIENT 11.1 SEC (9.8-11.6)
[2017-12-13] MEDS ORDERED: ONDANSETRON HCL 4 MG/2 ML VIAL IV PUSH ONE (00:30)
[2017-12-13] MEDS ORDERED: MORPHINE SULFATE 8 MG/ML INJ IV PUSH ONE (00:30)
[2017-12-13 00:49] LABS: ALBUMIN 3.4 GM/DL (3.4-5.0); ALKALINE PHOSPHATASE 46 U/L (45-117); ALT (GPT) 9 U/L (10-53); AST (GOT) 17 U/L (15-37); BICARBONATE 27.3 MEQ/L (21.0-32.0); BLOOD UREA NITROGEN 12 MG/DL (7-18); CALCIUM 6.7 MG/DL (8.5-10.1); CHLORIDE 105 MEQ/L (98-107); CREATININE 1.25 MG/DL (0.50-1.00); GLOMERULAR FILTRATION RATE 62 ML/MIN (>89); GLUCOSE,RANDOM 95 MG/DL (74-106); SODIUM (NA) 142 MEQ/L (136-145); TOTAL BILIRUBIN ADULT 0.3 MG/DL (0.2-1.0); TOTAL PROTEIN 7.5 GM/DL (6.4-8.2); TROPONIN I LESS THAN 0.02 NG/ML (0.02-0.05)
[2017-12-13 00:57] LABS: CALCIUM-PROTEIN CORRECTED 6.6 MG/DL (8.5-10.1)
--- NOTE | 2017-12-13 01:52 | RADRPT ---
EXAM DATE/TIME: 12/13/2017 01:11 [facility] COMPARISON: No previous studies available for comparison. INDICATIONS : Neck pain, evaluate for abscess. IV CONTRAST: 50 cc Omnipaque 350 (iohexol) IV RADIATION DOSE: 18.25 CTDIvol (mGy) MEDICAL HISTORY : Hypertension. Renal failure, chronic. SURGICAL HISTORY : kidney transplant,cervical fusion ENCOUNTER: Initial ACUITY: 3 days PAIN SCALE: 10/10 LOCATION: Right neck TECHNIQUE: Volumetric scanning of the neck was performed. Using automated exposure control and adjustment of th e mA and/or kV according to patient size, radiation dose was kept as low as reasonably achievable to obtain optimal diagnostic quality images. DICOM format image data is available electronically for r eview and comparison. FINDINGS: NASOPHARYNX: The nasopharyngeal airway has a normal configuration. No mucosal thickening or mass is seen. OROPHARYNX: The intrinsic muscles of the tongue are symmetric. The tonsillar pillars are intact. The prevertebr al soft tissues are not thickened. LARYNX: The supraglottic, glottic, and infraglottic structures are intact. PARAPHARYNGEAL: The parapharyngeal space is intact. SALIVARY GLANDS: The parotid and submandibular glands are intact. LYMPH NODES: No enlarged or necrotic-appearing nodes. THYROID: Homogeneous enhancement without evidence of nodule. BONES: Artifact associated with cervical spine artificial disc displacements. No suspicious bony findings. CONCLUSION: Negative Vinny Lopez MD on December 13, 2017 at 1:41 Board Certified Radiologist. This report was verified electronically.
--- NOTE | 2017-12-13 01:53 | RADRPT ---
EXAM DATE/TIME: 12/13/2017 01:11 [facility] COMPARISON: No previous studies available for comparison. INDICATIONS : Neck pain, evaluate for abscess. IV CONTRAST: 50 cc Omnipaque 350 (iohexol) IV RADIATION DOSE: CTDIvol (mGy) ; Reconstructed from previous dataset, no dose MEDICAL HISTORY : Hypertension. Renal failure, chronic. SURGICAL HISTORY : kidney transplant, cervical fusion ENCOUNTER: Initial ACUITY: 3 days PAIN SCALE: 10/10 LOCATION: Right neck TECHNIQUE: Volumetric scanning of the cervical spine was performed. Multiplanar reconstructions in the sagittal , coronal and oblique axial planes were performed. Using automated exposure control and adjustment o f the mA and/or kV according to patient size, radiation dose was kept as low as reasonably achievable to obtain optimal diagnostic quality images. DICOM format image data is available electronically fo r review and comparison. FINDINGS: Slight reversal of normal cervical lordosis. No evidence of spondylolisthesis. Artificial disc replac ement at C5-6 and C6-7. No evidence of fracture or destructive change. No bony canal or foraminal com promise. No evidence of paraspinal mass or hematoma. CONCLUSION: Negative Vinny Lopez MD on December 13, 2017 at 1:50 Board Certified Radiologist. This report was verified electronically.
[2017-12-13] MEDS ORDERED: CALCIUM GLUCONATE INJ 1 GM in DEXTROSE 5% IN WATER 100ML INJ 100 ML IV ONE ×2 (02:00)
[2017-12-13] MEDS ORDERED: CALG500 PO (02:57)
[2017-12-13] MEDS ORDERED: CYCL5TAB PO (02:59)
--- NOTE | 2017-12-13 16:19 | EKG ---
Date Performed: 12/13/2017 Time Performed: 00:20:01 PTAGE: 27 years EKG: Sinus rhythm NORMAL ECG PREVIOUS TRACING : 05/31/[address]-T changes, but largely unchanged from prior tracing. DOCTOR: Boyd Hill Interpretating Date/Time 12/13/2017 16:16:44
== END 2017-12-13 03:33 | disposition home or self-care (01) ==
LOC: NEPE 22:49
DX: E83.51 Hypocalcemia (principal); M54.2 Cervicalgia; I12.9 Hypertensive chronic kidney disease with stage 1 through stage 4 chronic kidney disease, or unspecified chronic kidney disease; N18.9 Chronic kidney disease, unspecified; Z94.0 Kidney transplant status; Z79.01 Long term (current) use of anticoagulants
CPT/HCPCS: 70491; 71045; 72126; 80053; 82550; 82552; 83880; 84443; 84484; 84703; 85025; 85610; 85730; 93005; 96365; 96375; 99284; J0610; J2270; J2405; Q9967

== ENCOUNTER 2018-06-10 18:36 | Observation (INO) ==
[2018-06-10] MEDS ORDERED: Morphine Inj 4 MG/ML Vial IV.PUSH ONE (19:04)
--- NOTE | 2018-06-10 19:18 | ED ---
HPI General Chief complaint: Extremity Injury, Lower Stated complaint: medical Time Seen by Provider: 06/10/18 18:56 History of Present Illness HPI narrative: 28-year-old female with history of glomerulonephritis status post renal transplant in 2012, recently discharged from [facility] on 06/06/18 after being admitted for a week for rejection of her transplant, followed by web applications administrator in [place] Dr. Washburn, brought in by ambulance for evaluation of bilateral knee and ankle pain. The pain started this morning and has been constant, sharp, nonradiating, made worse with movements, severe. She denies trauma. No fevers or chills. Related Data Home Medications Medication Instructions Recorded Confirmed amlodipine 5 mg PO DAILY 03/12/18 04/11/18 calcitriol 0.25 mcg PO DAILY 03/12/18 04/11/18 famotidine 10 mg PO BID 03/12/18 04/11/18 mycophenolate mofetil 500 mg PO TID 03/12/18 04/11/18 prednisolone 5 mg PO DAILY 03/12/18 04/11/18 pregabalin [Lyrica] 100 mg PO BID 03/12/18 04/11/18 tacrolimus 1 mg PO Q12H 03/12/18 04/11/18 Previous Rx's Medication Instructions Recorded ondansetron [Zofran ODT] 4 mg PO Q8H #12 tab 04/11/18 Allergies Allergy/AdvReac Type Severity Reaction Status Date / Time enalaprilat Allergy Severe Swelling Verified 03/12/18 22:14 losartan Allergy Severe Swelling Verified 03/12/18 22:14 vancomycin Allergy Severe Anaphylaxis Verified 03/12/18 22:14 Review of Systems ROS: all other systems reviewed are negative PMFSH Social History Social History Substance History: No History of Abuse Second Hand Smoke Exposure: No Smoking Status: Never smoker How Often Do You Have a Drink Containing Alcohol: Never Recent Travel in [facility] within the Last 8 Weeks: No Recent Out of Country Travel within the Last 8 Weeks: No Exam Narrative Exam Narrative: GENERAL: Well-developed, well-nourished, no apparent distress. SKIN: Focused skin assessment warm/dry. HEAD: Atraumatic. Normocephalic. EYES: Pupils equal and round. No scleral icterus. No injection or drainage. ENT: Mucous membranes pink and moist. NECK: Trachea midline. No JVD. CARDIOVASCULAR: Regular rate and rhythm. RESPIRATORY: No accessory muscle use. Clear to auscultation. Breath sounds equal bilaterally. GASTROINTESTINAL: Abdomen soft, non-tender, nondistended. MUSCULOSKELETAL: Bilateral knees and ankles without obvious deformity with moderate tenderness to bilateral anterior knees and bilateral lateral ankles with normal range of motion. NEUROLOGICAL: Awake and alert. No obvious cranial nerve deficits. Motor grossly within normal limits. Normal speech. PSYCHIATRIC: Appropriate mood and affect; insight and judgment normal. Course Initial Documented Vital Signs Temperature 98.2 F 06/10/18 19:05 Pulse Rate 104 H 06/10/18 19:05 Respiratory Rate 21 06/10/18 19:05 Blood Pressure 139/99 H 06/10/18 19:05 Pulse Oximetry 99 06/10/18 19:05 Last Documented Vital Signs Temperature 98.2 F 06/10/18 19:05 Pulse Rate 98 H 06/10/18 23:33 Respiratory Rate 18 06/10/18 23:33 Blood Pressure 158/57 H 06/10/18 23:33 Pulse Oximetry 99 06/10/18 19:05 Medical Decision Making [facility] Narrative Medical decision making narrative: Vital signs reviewed. CBC is remarkable for WBC 12.5, hemoglobin 9.8, hematocrit 29, neutrophils 89%. The patient has chronic anemia. She is currently on prednisone which is likely contributing to her slight leukocytosis and neutrophilia. There are no signs of infection on exam. CMP is remarkable for BUN 27, creatinine 1.84 which according to the patient is around her baseline. Calcium is 7.2. Patient has history of parathyroidectomy and is on calcium supplement. I will give her 1 g of calcium gluconate through the IV. Bilateral ankle x-rays are unremarkable. Left knee x-ray is essentially unremarkable. 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 This was discussed with the patient. The patient was given 4 mg of morphine with only mild relief of her pain. Her calcium will be replaced parenterally and she will be given another dose of pain and she prefers to be discharged home if at all possible and will follow up with her web applications administrator this week. She will be reassessed after receiving these medications. I attempted to contact our transplant tax manager Trinity Adams regarding this case and left a message on her voicemail. I attempted several times to contact the patient's web applications administrator Dr. Washburn in [place] without return call. Patient was given 4 mg of IV morphine with only mild improvement in her pain. She was then given 1 mg of IV Dilaudid and states that she still has significant pain in her bilateral knees and ankles. On clinical exam her knees and ankles are essentially unremarkable. There is no warmth erythema. No swelling. She has normal range of motion in all 4 of these joints. Patient's pain is so bad that she is having a difficult time ambulating and needs assistance walking to the restroom. Because of this I will admit her to overnight observation for further pain control. Case discussed with hospitalist Dr. Broussard who will admit the patient to her service. 11:30 PM: Our teller coordinator Trinity Adams return phone call. She recommends blood cultures, urinalysis, sputum culture, and Prograf levels. Transplant surgeon Dr. Ruby will be rounding tomorrow and she recommends placing a consult to them. Medical Screen Exam Complete: Yes Emergency Medical Condition: Yes Differential Diagnosis Differential Diagnosis: Arthralgias, myalgias, septic arthritis less likely, metabolic/electrolyte abnormality Lab Data Result diagrams: 06/10/18 19:51 06/10/18 19:51 Lab Results 06/10/18 06/10/18 06/10/18 Range/Units 19:51 19:51 19:51 WBC 12.5 H (4.0-11.0) th/mm3 RBC 3.09 L (4.00-5.30) mil/mm3 Hgb 9.8 L (11.6-15.3) gm/dL Hct 29.0 L (35.0-46.0) % MCV 94.1 (80.0-100.0) fL MCH 31.8 (27.0-34.0) pg MCHC 33.8 (32.0-36.0) % RDW 15.2 (11.6-17.2) % Plt Count 223 (150-450) th/mm3 MPV 8.1 (7.0-11.0) fL Prelim Diff (Auto) Slide review pending Neut % (Auto) 89.6 H (16.0-70.0) % Lymph % (Auto) 6.8 L (9.0-44.0) % [place] % (Auto) 3.1 (0.0-8.0) % Eos % (Auto) 0.4 (0.0-4.0) % Baso % (Auto) 0.1 (0.0-2.0) % Neut # (Auto) 11.2 H (1.8-7.7) th/mm3 Lymph # (Auto) 0.8 L (1.0-4.8) th/mm3 [place] # (Auto) 0.4 (0.0-0.9) th/mm3 Eos # (Auto) 0.1 (0.0-0.4) th/mm3 Baso # (Auto) 0.0 (0.0-0.2) th/mm3 WBC Differential . Diff Scan Auto diff confirmed Differential Comment . Hypersegmented Neuts 1+ H (None) Platelet Estimate Normal (Normal) Platelet Morphology Normal (Normal) RBC Morphology Normal (Normal) PT 28.4 H (9.8-11.6) sec INR 2.8 Ratio APTT 28.9 (24.3-30.1) sec Sodium 134 L (136-145) meq/L Potassium 4.8 (3.5-5.1) meq/L Chloride 99 (98-107) meq/L Carbon Dioxide 25.3 (21.0-32.0) meq/L Anion Gap 10 (5-15) meq/L BUN 27 H (7-18) mg/dL Creatinine 1.84 H (0.50-1.00) mg/dL Estimated GFR 40 L (>89) mL/min Random Glucose 178 H (74-106) mg/dL Calcium 7.0 L* (8.5-10.1) mg/dL Prot Corrected Calcium 7.2 L* (8.5-10.1) mg/dL Total Bilirubin 0.4 (0.2-1.0) mg/dL AST 20 (15-37) U/L ALT 25 (10-53) U/L Alkaline Phosphatase 47 (45-117) U/L Total Protein 6.7 (6.4-8.2) g/dL Albumin 3.3 L (3.4-5.0) g/dL Beta HCG, Quant Less than 1 (0-5) mIU/mL Imaging Data Radiologist's impression: Ankle X-Ray 06/10/18 19:04 CONCLUSION: No evidence of recent bony injury. Ankle X-Ray 06/10/18 19:04 CONCLUSION: No evidence of recent bony injury. Knee X-Ray 06/10/18 19:04 CONCLUSION: Negative examination Knee X-Ray 06/10/18 19:04 CONCLUSION: Osteochondritis dissecans of the lateral femoral condyle without displacement of the fragment. Discharge Plan Discharge Disposition Patient Disposition: 30 Still Patient Discharge Condition Condition: Stable Discharge Details Diagnosis: Osteochondritis dissecans, Acute knee pain, Acute ankle pain, Inability to ambulate due to knee, Arthralgia Physicians Team ED Provider: Herb Mar Primary Care Provider: Primary Care Zenaida Floyd Attending Provider: Jessika Broussard Status ED Status: Admitted Observation Patient
--- NOTE | 2018-06-10 19:47 | XR ---
EXAM DATE: 06/10/2018 7:04 PM EDT AGE/SEX: 28 years / Female INDICATIONS: Right ankle pain for 3 weeks. No known trauma. CLINICAL DATA: This is the patient's initial encounter. Patient reports that signs and symptoms have been present for 3 weeks and indicates a pain score of 7/10. MEDICAL/SURGICAL HISTORY: Diabetes mellitus type II. Renal insufficiency. Renal transplant. COMPARISON: . FINDINGS: Bony structures are intact and in normal alignment. Joints are intact without dislocation or signifi cant arthropathy. Osseous density is normal. Soft tissues are unremarkable. No radiopaque foreign bodies seen. CONCLUSION: No evidence of recent bony injury. Electronically signed by: Lanre Canchola MD 06/10/2018 7:46 PM EDT
--- NOTE | 2018-06-10 19:47 | XR ---
EXAM DATE: 06/10/2018 7:04 PM EDT AGE/SEX: 28 years / Female INDICATIONS: Chronic ankle pain for 3 weeks. No trauma. CLINICAL DATA: This is the patient's initial encounter. Patient reports that signs and symptoms have been present for 3 weeks and indicates a pain score of 7/10. MEDICAL/SURGICAL HISTORY: Diabetes mellitus type II. Renal insufficiency, chronic. Renal trans plant. COMPARISON: [facility] [place], ANKLE LIMITED RIGHT 2V, 06/10/2018. . FINDINGS: Bony structures are intact and in normal alignment. Joints are intact without dislocation or signifi cant arthropathy. Ankle mortise is fairly symmetric. Osseous density is normal. Soft tissues are unr emarkable other than some calcified phleboliths in the anterior leg. No radiopaque foreign bodies se en. CONCLUSION: No evidence of recent bony injury. Electronically signed by: Lanre Canchola MD 06/10/2018 7:46 PM EDT
--- NOTE | 2018-06-10 19:48 | XR ---
EXAM DATE: 06/10/2018 7:04 PM EDT AGE/SEX: 28 years / Female INDICATIONS: Left knee pain for several weeks. No known trauma. CLINICAL DATA: This is the patient's initial encounter. Patient reports that signs and symptoms have been present for 3 weeks and indicates a pain score of 7/10. MEDICAL/SURGICAL HISTORY: Diabetes mellitus type II. Renal insufficiency. Renal transplant. COMPARISON: No prior exams available for comparison. FINDINGS: Bony structures are intact and in normal alignment. Joints are intact without dislocation or signifi cant arthropathy. Osseous density is normal. Soft tissues are unremarkable. No radiopaque foreign bodies seen. CONCLUSION: Negative examination Electronically signed by: Lanre Canchola MD 06/10/2018 7:46 PM EDT
--- NOTE | 2018-06-10 19:50 | XR ---
EXAM DATE: 06/10/2018 7:04 PM EDT AGE/SEX: 28 years / Female INDICATIONS: Right knee pain for several weeks. No known trauma. CLINICAL DATA: This is the patient's initial encounter. Patient reports that signs and symptoms have been present for 3 weeks and indicates a pain score of 7/10. MEDICAL/SURGICAL HISTORY: Diabetes mellitus type II. Renal insufficiency. Renal transplant. COMPARISON: No prior exams available for comparison. FINDINGS: There is an oval ossific density arising from the lateral aspect of the medial femoral condyle with s ome surrounding sclerosis. This oval fragment is not displaced. Remainder of the osseous structures a re intact. The suprapatellar bursa is normal in thickness. No radiopaque foreign bodies. CONCLUSION: Osteochondritis dissecans of the lateral femoral condyle without displacement of the fragment. Electronically signed by: Lanre Canchola MD 06/10/2018 7:49 PM EDT
[2018-06-10 20:09] LABS: Baso % (Auto) 0.1 % (0.0-2.0); Eos # (Auto) 0.1 th/mm3 (0.0-0.4); Eos % (Auto) 0.4 % (0.0-4.0); Hemoglobin 9.8 gm/dL (11.6-15.3); Lymph # (Auto) 0.8 th/mm3 (1.0-4.8); Lymph % (Auto) 6.8 % (9.0-44.0); Mean Corpuscular HGB Conc 33.8 % (32.0-36.0); Mean Corpuscular Hemoglobin 31.8 pg (27.0-34.0); Mean Corpuscular Volume 94.1 fL (80.0-100.0); Mean Platelet Volume 8.1 fL (7.0-11.0); Mono # (Auto) 0.4 th/mm3 (0.0-0.9); Mono % (Auto) 3.1 % (0.0-8.0); Neut # (Auto) 11.2 th/mm3 (1.8-7.7); Neut % (Auto) 89.6 % (16.0-70.0); Platelet Count 223 th/mm3 (150-450); Red Blood Count 3.09 mil/mm3 (4.00-5.30); Red Cell Distribution Width 15.2 % (11.6-17.2); White Blood Count 12.5 th/mm3 (4.0-11.0)
[2018-06-10 20:19] LABS: Activated Partial Thrombo Time 28.9 sec (24.3-30.1); INR 2.8 Ratio; Prothrombin Time 28.4 sec (9.8-11.6)
[2018-06-10 20:33] LABS: Alanine Aminotransferase 25 U/L (10-53); Albumin 3.3 g/dL (3.4-5.0); Alkaline Phosphatase 47 U/L (45-117); Anion Gap 10 meq/L (5-15); Aspartate Aminotransferase 20 U/L (15-37); Blood Urea Nitrogen 27 mg/dL (7-18); Carbon Dioxide 25.3 meq/L (21.0-32.0); Chloride 99 meq/L (98-107); Glomerular Filtration Rate 40 mL/min (>89); Glucose,Random 178 mg/dL (74-106); Potassium 4.8 meq/L (3.5-5.1); Sodium 134 meq/L (136-145); Total Protein 6.7 g/dL (6.4-8.2)
[2018-06-10 20:36] LABS: Hypersegmented Neutrophils 1+; Platelet Estimate Normal (Normal); Platelet Morphology Normal (Normal); RBC Morphology Normal (Normal)
[2018-06-10] MEDS ORDERED: Calcium Gluconate Inj 1 GM in Sodium Chlor 0.9% Inj 100 ML IV.SIG ONE (20:41)
[2018-06-10] MEDS ORDERED: Acetaminophen 325 MG Tablet PO PRN (22:51)
[2018-06-10] MEDS ORDERED: Bisacodyl 10 MG Supp RECTAL PRN (22:51)
--- NOTE | 2018-06-10 22:55 | P.HPIM ---
History of Present Illness Primary Care Physician: No Primary Care Physician History of Present Illness: This is a 28-year-old female with a PMH of Glomerulonephritis s/p Renal Transplant who presented to the ER w/ complaints of bilateral knee and ankle pain. States symptoms started today, initially w/ mild bilateral ankle pain, however symptoms progressed throughout the day, now more severe and involve bilateral knees. Pain is severe, 10/10, non-radiating, worse w/ movement, associated w/ significant difficulty ambulating. Denies injury or trauma. On chronic steroid therapy for h/o renal transplant. Follows w/ Veterinarian in [place], has upcoming appt Jun 16, compliant w/ meds/follow up. Denies fever or chills. On arrival, BP 139/99, HR 104, O2 sat 99% on RA, Afebrile. WBC 12.5. INR 2.8. Creatinine 1.84, previously 1.82. Ca 7.0. Left Ankle X-ray negative , Right Ankle X-ray negative, Left Knee X-ray negative, Right Knee X-ray w/ osteochondritis dissecans of lateral femoral condyle. S/p Morphine and Dilaudid w/ minimal improvement, +gait instability due to pain. - Diagnosis (1) Intractable pain (2) Gait instability (3) H/O kidney transplant Review of Systems PAST FAMILY HISTORY: Reviewed. No h/o DM or CAD All other systems reviewed negative except as stated in HPI PMFSH - History History Provided By: Patient - Medical History Medical History: Medical History (Last Reviewed 06/10/18 @ 19:10 by Barbara Aguero) HTN (hypertension) (Acute) Anemia Diabetes Glomerulonephritis Pulmonary embolism - Surgical History Surgical History: Surgical History (Last Reviewed 06/10/18 @ 19:10 by Barbara Aguero) Kidney transplant recipient (Acute) - Tobacco History Second Hand Smoke Exposure: No Smoking Status: Never smoker - Alcohol History How Often Do You Have a Drink Containing Alcohol: Never - Substance Use History Substance History: No History of Abuse - Travel History Recent Travel in the [place] Within the Last 8 Weeks: No Recent Travel Out of the Country Within the Last 8 Weeks: No - Immunization History Tetanus Immunization: <5 Years Hx Influenza Vaccine This Season: No Medications and Allergies Active Medications: Active Medications Sodium Chloride (Ns Flush) 2 ml IV.FLUSH PRN PRN PRN Reason: FLUSH AFTER USING IV ACCESS Allergies Allergy/AdvReac Type Severity Reaction Status Date / Time enalaprilat Allergy Severe Swelling Verified 03/12/18 22:14 losartan Allergy Severe Swelling Verified 03/12/18 22:14 vancomycin Allergy Severe Anaphylaxis Verified 03/12/18 22:14 Home Medications Medication Instructions Recorded Confirmed Type amlodipine 5 mg PO DAILY 03/12/18 04/11/18 History calcitriol 0.25 mcg PO DAILY 03/12/18 04/11/18 History famotidine 10 mg PO BID 03/12/18 04/11/18 History mycophenolate mofetil 500 mg PO TID 03/12/18 04/11/18 History prednisolone 5 mg PO DAILY 03/12/18 04/11/18 History pregabalin [Lyrica] 100 mg PO BID 03/12/18 04/11/18 History tacrolimus 1 mg PO Q12H 03/12/18 04/11/18 History Exam Vital signs: Vital Signs 06/10/18 19:05 06/10/18 22:26 Temperature 98.2 F Pulse Rate 104 H Respiratory Rate 21 18 Blood Pressure 139/99 H Pulse Oximetry 99 Intake & Output 06/10/18 06/10/18 06/11/18 06:59 18:59 06:59 Weight 88.451 kg Narrative: PE: GENERAL: Extremely pleasant young black female in no acute distress. SKIN: Focused skin assessment warm and dry. HEENT: PERRLA, EOMI. No scleral icterus or conjunctival pallor. No lid lag or facial droop. CARDIOVASCULAR: Regular rate and rhythm. No obvious murmurs to auscultation. No chest tenderness to palpation. RESPIRATORY: No obvious rhonchi or wheezing. Clear to auscultation. Breath sounds equal bilaterally. GASTROINTESTINAL: Abdomen soft, non-tender, nondistended. BS normal. MUSCULOSKELETAL: Extremities without clubbing, cyanosis, or edema. Bilateral knee/ankle tenderness to palpation, decreased ROM due to pain, no deformities. NEUROLOGICAL: Awake, alert and oriented x4. No focal neurologic deficits. Moving both upper and lower extremities spontaneously. PSYCHIATRIC: Appropriate mood and affect. Insight and judgment normal. Results - Labs CBC & Chem 7: 06/10/18 19:51 06/10/18 19:51 Labs: Short CBC 06/10/18 Range/Units 19:51 WBC 12.5 H (4.0-11.0) th/mm3 Hgb 9.8 L (11.6-15.3) gm/dL Hct 29.0 L (35.0-46.0) % Plt Count 223 (150-450) th/mm3 BMP 06/10/18 19:51 Sodium 134 L Potassium 4.8 Chloride 99 Carbon Dioxide 25.3 BUN 27 H Creatinine 1.84 H Calcium 7.0 L* Liver Function 06/10/18 Range/Units 19:51 Total Bilirubin 0.4 (0.2-1.0) mg/dL AST 20 (15-37) U/L ALT 25 (10-53) U/L Alkaline Phosphatase 47 (45-117) U/L Albumin 3.3 L (3.4-5.0) g/dL - Imaging Impressions Ankle X-Ray 06/10/18 19:04 CONCLUSION: No evidence of recent bony injury. Ankle X-Ray 06/10/18 19:04 CONCLUSION: No evidence of recent bony injury. Knee X-Ray 06/10/18 19:04 CONCLUSION: Negative examination Knee X-Ray 06/10/18 19:04 CONCLUSION: Osteochondritis dissecans of the lateral femoral condyle without displacement of the fragment. Caprini VTE Risk Assessment Caprini VTE Risk Assessment: No/Low Risk (score <= 1) Caprini Risk Assessment Model: Point Value = 1 Point Value = 2 Point Value = 3 Point Value = 5 Age 41-60 Minor surgery BMI > 25 kg/m2 Swollen legs Varicose veins or History of unexplained or recurrent spontaneous Oral contraceptives or hormone replacement Sepsis (< 1 month) Serious lung disease, including pneumonia (< 1 month) Abnormal pulmonary function Acute myocardial infarction Congestive heart failure (< 1 month) History of inflammatory bowel disease Medical patient at bed rest Age 61-74 Arthroscopic surgery Major open surgery (> 45 min) Laparoscopic surgery (> 45 min) Malignancy Confined to bed (> 72 hours) Immobilizing plaster cast Central venous access Age >= 75 History of VTE Family history of VTE Factor V Leiden Prothrombin [id number] Lupus anticoagulant Anticardiolipin antibodies Elevated serum homocysteine Heparin-induced thrombocytopenia Other congenital or acquired thrombophilia Stroke (< 1 month) Elective arthroplasty Hip, pelvis, or leg fracture Acute spinal cord injury (< 1 month) Prophylaxis Regimen: Total Risk Factor Score Risk Level Prophylaxis Regimen 0-1 Low Early ambulation 2 Moderate Order ONE of the following: *Sequential Compression Device (SCD) *Heparin 5000 units SQ BID 3-4 Higher Order ONE of the following medications: *Heparin 5000 units SQ TID *Enoxaparin/Lovenox 40 mg SQ daily (WT < 150 kg, CrCl > 30 mL/min) *Enoxaparin/Lovenox 30 mg SQ daily (WT < 150 kg, CrCl > 10-29 mL/min) *Enoxaparin/Lovenox 30 mg SQ BID (WT < 150 kg, CrCl > 30 mL/min) AND/OR *Sequential Compression Device (SCD) 5 or more Highest Order ONE of the following medications: *Heparin 5000 units SQ TID (Preferred with Epidurals) *Enoxaparin/Lovenox 40 mg SQ daily (WT < 150 kg, CrCl > 30 mL/min) *Enoxaparin/Lovenox 30 mg SQ daily (WT < 150 kg, CrCl > 10-29 mL/min) *Enoxaparin/Lovenox 30 mg SQ BID (WT < 150 kg, CrCl > 30 mL/min) AND *Sequential Compression Device (SCD) Assessment and Plan - Assessment (1) Intractable pain Code(s): R52 - Pain, unspecified Status: Acute (2) Gait instability Code(s): R26.81 - Unsteadiness on feet Status: Acute (3) H/O kidney transplant Code(s): Z94.0 - Kidney transplant status Status: Acute - Plan A/P: 1. Intractable Pain: c/o progressive bilateral knee/ankle pain starting today , s/p Morphine/Dilaudid in ER w/ minimal improvement. Continue w/ analgesics as needed. 2. Gait Instability: due to above, significant difficulty w/ ambulation due to pain. Bilateral Ankle X-ray negative, Left Knee X-ray negative, Right Knee X -ray w/ osteochondritis dissecans, images reviewed. Consult Ortho for further eval/recommendations. PT for eval/tx. 3. Renal Transplant: h/o Glomerulonephritis, s/p Renal Transplant, following w / Veterinarian in [place], has upcoming appt 06/16/18 for follow-up. Creatinine stable in comparison to previous. Transplant Sx consulted by ER physician, recommend U/a, Blood Cultures, Prograf level and will eval in am. Monitor I/O, resume home medications. 4. DVT Prophylaxis: SCD/Teds 5. Social work for d/c planning as needed 6. Case discussed w/ ER physician at length, labs/records/imaging reviewed by me
[2018-06-11] MEDS: HYDROmorphone PF Inj 0.5 MG/0.5 ML Syringe IV.PUSH PRN ×2 (02:16→06:40)
[2018-06-11 05:29] LABS: Baso % (Auto) 0.4 % (0.0-2.0); Eos % (Auto) 0.1 % (0.0-4.0); Hematocrit 28.3 % (35.0-46.0); Hemoglobin 9.7 gm/dL (11.6-15.3); Lymph # (Auto) 0.9 th/mm3 (1.0-4.8); Lymph % (Auto) 6.2 % (9.0-44.0); Mean Corpuscular HGB Conc 34.1 % (32.0-36.0); Mean Corpuscular Volume 93.7 fL (80.0-100.0); Mean Platelet Volume 8.1 fL (7.0-11.0); Mono # (Auto) 0.8 th/mm3 (0.0-0.9); Mono % (Auto) 5.8 % (0.0-8.0); Neut % (Auto) 87.5 % (16.0-70.0); Platelet Count 220 th/mm3 (150-450); Red Blood Count 3.02 mil/mm3 (4.00-5.30); Red Cell Distribution Width 15.2 % (11.6-17.2); White Blood Count 13.7 th/mm3 (4.0-11.0)
[2018-06-11 05:47] LABS: Alanine Aminotransferase 23 U/L (10-53); Albumin 3.1 g/dL (3.4-5.0); Anion Gap 10 meq/L (5-15); Aspartate Aminotransferase 13 U/L (15-37); Blood Urea Nitrogen 29 mg/dL (7-18); Calcium 7.7 mg/dL (8.5-10.1); Carbon Dioxide 26.6 meq/L (21.0-32.0); Chloride 101 meq/L (98-107); Glomerular Filtration Rate 45 mL/min (>89); Glucose,Random 147 mg/dL (74-106); Sodium 138 meq/L (136-145)
[2018-06-11 05:50] LABS: Alkaline Phosphatase 43 U/L (45-117); Total Protein 6.5 g/dL (6.4-8.2)
[2018-06-11 07:47] VITALS: O2SAT 98
[2018-06-11] MEDS ORDERED: Dextrose 50% in Water 50 ML Vial IV.PUSH PRN (08:07)
--- NOTE | 2018-06-11 08:40 | P.CONOP ---
[facility] Orthopedics Consult Note - [facility] Consult date: 06/11/18 Chief complaint: arthralgias, inability to ambulate, bilateral knee Narrative: Aileen is a 28-year-old female with a PMH of Glomerulonephritis s/p Renal Transplant who presented to the ER w/ complaints of bilateral knee and bilateral ankle pain. States symptoms started yesterday, initially w/ mild bilateral ankle pain. however symptoms progressed throughout the day. Her pain is now more severe and involve bilateral knees. Pain is severe, non-radiating, worse w/ movement, associated w/ significant difficulty ambulating. Her left knee pain and ankle pain have improved overnight. She denies any falls or injuries. She is on chronic steroid therapy for h/o renal transplant. Follows w/ [employer] [facility] in [place]. She denies fever or chills. On arrival, BP 139/99, HR 104, O2 sat 99% on RA, Afebrile. WBC 12.5. INR 2.8. Creatinine 1.84, previously 1.82. Ca 7.0. Left Ankle X-ray negative, Right Ankle X-ray negative, Left Knee X-ray negative , Right Knee X-ray w/ osteochondritis dissecans of lateral femoral condyle. S/ p Morphine and Dilaudid w/ minimal improvement, +gait instability due to pain. - Diagnosis Review of Systems Patient denies fevers, chills, weight loss, headache, visual changes, hearing loss, chest pain, palpitations, shortness of breath, nausea, vomiting, no urinary changes, diarrhea, bowel changes, neck pain, back pain, skin rashes, weakness of extremities, easy bleeding, enlarged lymph nodes, numbness of extremities, anxiety, or depression. Patient's social history, past medical history, and family history were reviewed on chart and with patient. [facility] - History History Provided By: Patient - Medical History Medical History: Medical History (Last Reviewed 06/11/18 @ 08:38 by Claudio Guardado MD) HTN (hypertension) (Acute) Anemia Diabetes Glomerulonephritis Pulmonary embolism - Surgical History Surgical History: Surgical History (Last Reviewed 06/11/18 @ 08:38 by Claudio Guardado MD) Kidney transplant recipient (Acute) - Social History I have reviewed the patient's Social History: Yes - Tobacco History Second Hand Smoke Exposure: No Smoking Status: Never smoker - Alcohol History How Often Do You Have a Drink Containing Alcohol: Never - Substance Use History Substance History: No History of Abuse - Travel History Recent Travel in the [place] Within the Last 8 Weeks: No Recent Travel Out of the Country Within the Last 8 Weeks: No - Immunization History Tetanus Immunization: <5 Years Hx Influenza Vaccine This Season: No Medications and Allergies Active Medications: Active Medications Acetaminophen (Tylenol) 650 mg PO Q4H PRN PRN Reason: Temp > 100.4 Al Hydroxide/Mg Hydroxide (Milk Of Magnesia Liq) 30 ml PO Q12H PRN PRN Reason: Mild Constipation Bisacodyl (Dulcolax Supp) 10 mg RECTAL DAILY PRN PRN Reason: SEVERE CONSITIPATION Calcitriol (Rocaltrol) 0.25 mcg PO DAILY [facility] Dextrose (D50w Vial) 50 ml IV.PUSH UNSCH PRN PRN Reason: PER HYPOGLYCEMIA PROTOCOL Glucagon (Glucagon Inj) 1 mg OTHER PRN PRN PRN Reason: for Hypoglycemia Protocol Hydromorphone HCl (Dilaudid Pf Inj) 1 mg IV.PUSH Q4H PRN PRN Reason: PAIN 6-10 Last Admin: 06/11/18 06:40 Dose: 1 mg Insulin Aspart (Novolog Insulin Correctional Sugar Inj) 0 unit SQ ACHS [facility]; Protocol Lactulose (Lactulose Liq) 30 ml PO DAILY PRN PRN Reason: SEVERE CONSITIPATION Mycophenolate Mofetil (Cellcept) 500 mg PO TID [facility] Last Admin: 06/10/18 23:56 Dose: 500 mg Ondansetron HCl (Zofran Inj) 4 mg IV.PUSH Q6H PRN PRN Reason: NAUSEA OR VOMITING Prednisone (Deltasone) 5 mg PO DAILY [facility] Pregabalin (Lyrica) 100 mg PO BID [facility] Senna/Docusate Sodium (Roselyn-Colace) 1 tab PO BID [facility] Sennosides (Senokot) 17.2 mg PO Q12H PRN PRN Reason: Moderate Constipation Sodium Chloride (Ns Flush) 2 ml IV.FLUSH PRN PRN PRN Reason: FLUSH AFTER USING IV ACCESS Tacrolimus (Prograf) 1 mg PO Q12H [facility] Last Admin: 06/11/18 02:58 Dose: Not Given Allergies Allergy/AdvReac Type Severity Reaction Status Date / Time enalaprilat Allergy Severe Swelling Verified 03/12/18 22:14 losartan Allergy Severe Swelling Verified 03/12/18 22:14 vancomycin Allergy Severe Anaphylaxis Verified 03/12/18 22:14 Home Medications Medication Instructions Recorded Confirmed Type amlodipine 5 mg PO DAILY 03/12/18 04/11/18 History calcitriol 0.25 mcg PO DAILY 03/12/18 04/11/18 History famotidine 10 mg PO BID 03/12/18 04/11/18 History mycophenolate mofetil 1,000 mg PO BID 03/12/18 04/11/18 History prednisolone 40 mg PO DAILY 03/12/18 04/11/18 History pregabalin [Lyrica] 100 mg PO BID 03/12/18 04/11/18 History cyclobenzaprine 10 mg PO TID 06/11/18 06/11/18 History folic acid 1 mg PO DAILY 06/11/18 06/11/18 History insulin aspart U-100 [Novolog 8 unit SUBCUT TID 06/11/18 06/11/18 History Flexpen U-100 Insulin] insulin glargine [Basaglar KwikPen 10 unit SUBCUT DAILY 06/11/18 06/11/18 History U-100 Insulin] labetalol 200 mg PO TID 06/11/18 06/11/18 History sulfamethoxazole-trimethoprim 1 tab PO DIRECTED 06/11/18 06/11/18 History tacrolimus [Envarsus XR] 12 mg PO DAILY 06/11/18 06/11/18 History valganciclovir 450 mg PO DAILY 06/11/18 06/11/18 History warfarin 5 mg PO DAILY 06/11/18 06/11/18 History Exam Vital signs: Vital Signs 06/10/18 19:05 06/10/18 22:26 06/10/18 23:33 Temperature 98.2 F Pulse Rate 104 H 98 H Respiratory Rate 21 18 18 Blood Pressure 139/99 H 158/57 H Pulse Oximetry 99 06/11/18 02:37 06/11/18 02:55 06/11/18 03:50 Temperature 98.7 F Pulse Rate 95 H 99 H Respiratory Rate 18 16 18 Blood Pressure 154/99 H 134/105 H Pulse Oximetry 100 99 06/11/18 04:20 06/11/18 07:45 Temperature 98.5 F Pulse Rate 100 H 88 Respiratory Rate 15 14 Blood Pressure 140/96 H 139/91 H Pulse Oximetry 98 Intake & Output 06/10/18 06/11/18 06/11/18 18:59 06:59 18:59 Intake Total 110 / 110 0 / 0 Balance 110 / 110 0 / 0 Weight 88.451 kg Intake: IV 110 / 110 Calcium Gluconate Inj 1 GM In 110 / 110 NS Inj 100 ML @ 110 mls/hr IV. SIG ONCE ONE Rx#:[id number] Oral 0 / 0 Other: # Voids 0 Date of Last Bowel Movement 06/10/18 Weight On Admission 88.451 kg Narrative: Aileen is a pleasant 28-year-old female. General: Awake and alert. No acute distress. Appears well-developed well- nourished Head: Normocephalic, atraumatic pupils are equal Neck: Soft, nontender, trachea midline Abdomen: Soft, nondistended Examination of right arm reveals no pain or deformity with shoulder, elbow, or wrist motion. Skin is intact. Radial pulse is palpable. Normal capillary refill in fingers. Sensation is intact in radial, ulnar, and median nerve distributions. [employer] Special Education Teacher strength is +5. No lymphadenopathy noted. Examination of left arm reveals no pain or deformity with shoulder, elbow, or wrist motion. Skin is intact. Radial pulse is palpable. Normal capillary refill in fingers. Sensation is intact in radial, ulnar, and median nerve distributions. Pre K Special Education Teacher strength is +5. No lymphadenopathy noted. Examination of left lower extremity reveals no pain or deformity with hip, knee , or ankle motion. Skin is intact. Sensation is intact in left foot. Dorsalis pedis pulse is palpable. Normal capillary refill and feet. Thigh and calf compartments are soft. No lymphadenopathy noted. +5 strength of ankle dorsiflexion and plantarflexion. Examination of right lower extremity reveals no pain or deformity with hip, knee , or ankle motion. She has no joint effusion. She has mild tenderness over her medial femoral condyle. There is no warmth or erythema. Skin is intact. Sensation is intact in right foot. Dorsalis pedis pulse is palpable. Normal capillary refill and feet. Thigh and calf compartments are soft. No lymphadenopathy noted. +5 strength of ankle dorsiflexion and plantarflexion. Results - Labs Result Diagrams: 06/11/18 05:09 06/11/18 05:09 Labs: Laboratory Results - last 24 hr 06/10/18 06/10/18 06/10/18 19:51 19:51 19:51 WBC 12.5 H RBC 3.09 L Hgb 9.8 L Hct 29.0 L MCV 94.1 MCH 31.8 MCHC 33.8 RDW 15.2 Plt Count 223 MPV 8.1 Prelim Diff (Auto) Slide review pending Neut % (Auto) 89.6 H Lymph % (Auto) 6.8 L [place] % (Auto) 3.1 Eos % (Auto) 0.4 Baso % (Auto) 0.1 Neut # (Auto) 11.2 H Lymph # (Auto) 0.8 L [place] # (Auto) 0.4 Eos # (Auto) 0.1 Baso # (Auto) 0.0 WBC Differential . Diff Scan Auto diff confirmed Differential Comment . Hypersegmented Neuts 1+ H Platelet Estimate Normal Platelet Morphology Normal RBC Morphology Normal PT 28.4 H INR 2.8 APTT 28.9 Sodium 134 L Potassium 4.8 Chloride 99 Carbon Dioxide 25.3 Anion Gap 10 BUN 27 H Creatinine 1.84 H Estimated GFR 40 L Random Glucose 178 H Calcium 7.0 L* Prot Corrected Calcium 7.2 L* Total Bilirubin 0.4 AST 20 ALT 25 Alkaline Phosphatase 47 Total Protein 6.7 Albumin 3.3 L Beta HCG, Quant Less than 1 06/11/18 06/11/18 05:09 05:09 WBC 13.7 H RBC 3.02 L Hgb 9.7 L Hct 28.3 L MCV 93.7 MCH 32.0 MCHC 34.1 RDW 15.2 Plt Count 220 MPV 8.1 Prelim Diff (Auto) Neut % (Auto) 87.5 H Lymph % (Auto) 6.2 L [place] % (Auto) 5.8 Eos % (Auto) 0.1 Baso % (Auto) 0.4 Neut # (Auto) 12.0 H Lymph # (Auto) 0.9 L [place] # (Auto) 0.8 Eos # (Auto) 0.0 Baso # (Auto) 0.0 WBC Differential . Diff Scan Differential Comment Auto diff final Hypersegmented Neuts Platelet Estimate Platelet Morphology RBC Morphology PT INR APTT Sodium 138 Potassium 4.0 D Chloride 101 Carbon Dioxide 26.6 Anion Gap 10 BUN 29 H Creatinine 1.65 H Estimated GFR 45 L Random Glucose 147 H Calcium 7.7 L Prot Corrected Calcium Total Bilirubin 0.4 AST 13 L ALT 23 Alkaline Phosphatase 43 L Total Protein 6.5 Albumin 3.1 L Beta HCG, Quant - Diagnostic results Imaging: Impressions Ankle X-Ray 06/10/18 19:04 CONCLUSION: No evidence of recent bony injury. Ankle X-Ray 06/10/18 19:04 CONCLUSION: No evidence of recent bony injury. Knee X-Ray 06/10/18 19:04 CONCLUSION: Negative examination Knee X-Ray 06/10/18 19:04 CONCLUSION: Osteochondritis dissecans of the lateral femoral condyle without displacement of the fragment. Knee x-ray: report reviewed, image reviewed Assessment and Plan - Assessment and Plan Aileen has a 2-day history of bilateral knee pain and bilateral ankle pain. Her pain is beginning to improve. Her pain appears to be from an inflammatory process. X-rays of her left knee and ankles appear normal. Her right knee has a small osteochondral defect which appears to be chronic. I explained her that she may weight-bear as tolerated. She may use a walker as needed. If she begins developing mechanical symptoms of the right knee there is a chance she would need arthroscopic knee surgery. She is in agreement with this plan. All questions were answered. She will follow-up with orthopedics as needed. A mid-level provider in my office (nurse practitioner or physician foundation assistant) may see this patient on follow-up visits and continue to implement the objectives of this plan including: Starting or adjusting medications, injections , cast application, orthotics, brace application, physical therapy, radiological studies (including x-ray, MRI, CT, ultrasound, bone scan), vascular studies, neurologic studies, specialist consultation, and proceeding with surgical management, as appropriate.
[2018-06-11] MEDS ORDERED: predniSONE 5 MG Tablet PO SCH (09:00)
[2018-06-11] MEDS ORDERED: Calcitriol 0.25 MCG Capsule PO SCH (09:00)
[2018-06-11] MEDS ORDERED: Senna/Docusate Sodium 8.6/50 MG Tablet PO SCH (09:00)
[2018-06-11] MEDS: Insulin NovoLOG Aspart Correctional Sugar Inj SQ SCH ×2 (11:18→14:30)
[2018-06-11] MEDS: HYDROmorphone PF Inj 2 MG/ML Vial IV.PUSH PRN ×2 (11:28→16:07)
--- NOTE | 2018-06-11 11:52 | P.PN ---
Subjective Interval history: With bilateral knee, left ankle pain. Patient states her pain is overall better although she is still having discomfort in the right knee. 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 She began to have problems after she became and miscarried. She has a follow-up appointment this Tuesday in the clinic. She is hoping to be discharged today. Physical Exam Vital signs: Vital Signs 06/10/18 19:05 06/10/18 22:26 06/10/18 23:33 Temperature 98.2 F Pulse Rate 104 H 98 H Respiratory Rate 21 18 18 Blood Pressure 139/99 H 158/57 H Pulse Oximetry 99 06/11/18 02:37 06/11/18 02:55 06/11/18 03:50 Temperature 98.7 F Pulse Rate 95 H 99 H Respiratory Rate 18 16 18 Blood Pressure 154/99 H 134/105 H Pulse Oximetry 100 99 06/11/18 04:20 06/11/18 07:45 Temperature 98.5 F Pulse Rate 100 H 88 Respiratory Rate 15 14 Blood Pressure 140/96 H 139/91 H Pulse Oximetry 98 Intake & Output 06/10/18 06/11/18 06/11/18 18:59 06:59 18:59 Intake Total 110 / 110 0 / 0 Balance 110 / 110 0 / 0 Weight 88.451 kg Intake: IV 110 / 110 Calcium Gluconate Inj 1 GM In 110 / 110 NS Inj 100 ML @ 110 mls/hr IV. SIG ONCE ONE Rx#:[id number] Oral 0 / 0 Other: # Voids 0 Date of Last Bowel Movement 06/10/18 Weight On Admission 88.451 kg Narrative: GENERAL: Well-developed well-nourished, young black female patient in no acute distress. Awake and alert. SKIN: Focused skin assessment warm and dry. HEENT: PERRLA, EOMI. No scleral icterus or conjunctival pallor. CARDIOVASCULAR: Regular rate and rhythm. No obvious murmurs to auscultation. No chest tenderness to palpation. RESPIRATORY: No obvious rhonchi or wheezing. Clear to auscultation. Breath sounds equal bilaterally. GASTROINTESTINAL: Abdomen soft, non-tender, nondistended. BS normal. MUSCULOSKELETAL: Extremities without clubbing, cyanosis, or edema. Bilateral knee/ankle tenderness to palpation, decreased ROM due to pain, no deformities. NEUROLOGICAL: Awake, alert and oriented x4. No focal neurologic deficits. Moving both upper and lower extremities spontaneously. PSYCHIATRIC: Appropriate mood and affect. Insight and judgment normal. Results - Labs CBC & Chem 7: 06/11/18 05:09 06/11/18 05:09 Laboratory Results - last 24 hr 06/10/18 06/10/18 06/10/18 19:51 19:51 19:51 WBC 12.5 H RBC 3.09 L Hgb 9.8 L Hct 29.0 L MCV 94.1 MCH 31.8 MCHC 33.8 RDW 15.2 Plt Count 223 MPV 8.1 Prelim Diff (Auto) Slide review pending Neut % (Auto) 89.6 H Lymph % (Auto) 6.8 L [place] % (Auto) 3.1 Eos % (Auto) 0.4 Baso % (Auto) 0.1 Neut # (Auto) 11.2 H Lymph # (Auto) 0.8 L [place] # (Auto) 0.4 Eos # (Auto) 0.1 Baso # (Auto) 0.0 WBC Differential . Diff Scan Auto diff confirmed Differential Comment . Hypersegmented Neuts 1+ H Platelet Estimate Normal Platelet Morphology Normal RBC Morphology Normal PT 28.4 H INR 2.8 APTT 28.9 Sodium 134 L Potassium 4.8 Chloride 99 Carbon Dioxide 25.3 Anion Gap 10 BUN 27 H Creatinine 1.84 H Estimated GFR 40 L POC Glucose Random Glucose 178 H Calcium 7.0 L* Prot Corrected Calcium 7.2 L* Total Bilirubin 0.4 AST 20 ALT 25 Alkaline Phosphatase 47 Total Protein 6.7 Albumin 3.3 L Beta HCG, Quant Less than 1 06/11/18 06/11/18 06/11/18 05:09 05:09 10:10 WBC 13.7 H RBC 3.02 L Hgb 9.7 L Hct 28.3 L MCV 93.7 MCH 32.0 MCHC 34.1 RDW 15.2 Plt Count 220 MPV 8.1 Prelim Diff (Auto) Neut % (Auto) 87.5 H Lymph % (Auto) 6.2 L [place] % (Auto) 5.8 Eos % (Auto) 0.1 Baso % (Auto) 0.4 Neut # (Auto) 12.0 H Lymph # (Auto) 0.9 L [place] # (Auto) 0.8 Eos # (Auto) 0.0 Baso # (Auto) 0.0 WBC Differential . Diff Scan Differential Comment Auto diff final Hypersegmented Neuts Platelet Estimate Platelet Morphology RBC Morphology PT INR APTT Sodium 138 Potassium 4.0 D Chloride 101 Carbon Dioxide 26.6 Anion Gap 10 BUN 29 H Creatinine 1.65 H Estimated GFR 45 L POC Glucose 123 H Random Glucose 147 H Calcium 7.7 L Prot Corrected Calcium Total Bilirubin 0.4 AST 13 L ALT 23 Alkaline Phosphatase 43 L Total Protein 6.5 Albumin 3.1 L Beta HCG, Quant - Imaging Impressions Ankle X-Ray 06/10/18 19:04 CONCLUSION: No evidence of recent bony injury. Ankle X-Ray 06/10/18 19:04 CONCLUSION: No evidence of recent bony injury. Knee X-Ray 06/10/18 19:04 CONCLUSION: Negative examination Knee X-Ray 06/10/18 19:04 CONCLUSION: Osteochondritis dissecans of the lateral femoral condyle without displacement of the fragment. Assessment and Plan - Assessment (1) Intractable pain Code(s): R52 - Pain, unspecified Status: Acute (2) Gait instability Code(s): R26.81 - Unsteadiness on feet Status: Acute (3) H/O kidney transplant Code(s): Z94.0 - Kidney transplant status Status: Acute - Plan 28-year-old female with a PMH of Glomerulonephritis s/p Renal Transplant who presented to the ER w/ complaints of bilateral knee and ankle pain. Bilateral knee pain: c/o progressive bilateral knee/ankle pain, s/p Morphine/ Dilaudid in ER w/ minimal improvement. -improved today -continue with pain management Gait Instability: due to above, significant difficulty w/ ambulation due to pain. Bilateral Ankle X-ray negative, Left Knee X-ray negative, Right Knee X-ray w/ osteochondritis dissecans, images reviewed. -seen in consultation by Orthopedic service, appreciate assistance. WBAT. If she begins developing mechanical symptoms of the right knee there is a chance she would need arthroscopic knee surgery. F/u with orthopedics as needed. Renal Transplant: h/o Glomerulonephritis, s/p Renal Transplant, following w/ [facility] in [place], has upcoming appt 06/16/18 for follow-up. Creatinine stable in comparison to previous. Patient states she has been told that she is rejecting her transplant after becoming and miscarried. -Cr improved, now 1.65 -Tacrolimus level 7.3 -Dr. Altamirano spoke with transplant Sx who recommended consult [employer] credit collections analyst -UA pending, follow up on results -Consult nephrology, appreciate assistance -Avoid nephrotoxic agents -continue on Cellcept and Prednisone Hypertension, not well controlled -Resume home medications amlodipine and labetalol -Clonidine prn with parameters -Continue to monitor BP and adjust accordingly Diabetes HgbA1c 6.4 -Accu-Cheks and insulin sliding scale -Diabetic diet -Novolog 5u TIDAC Hx of PE, on Coumadin INR therapeutic -continue on Coumadin -pharmacy to dose, monitor INR Leukocytosis, suspect secondary to steroid reaction Patient is afebrile, does not appear septic -Monitor as indicated DVT Prophylaxis: SCD/Teds Code Status: FULL Discussed Condition With: patient, nursing staff, Dr. Altamirano Discharge Planning: Discharge pending clearance by kidney transplant surgeon
[2018-06-11 12:17] LABS: Hemoglobin A1c 6.4 % (4.3-6.0)
[2018-06-11] MEDS ORDERED: hydrALAZINE 25 MG Tablet PO ONE (14:09)
[2018-06-11] MEDS ORDERED: amLODIPine 5 MG Tablet PO SCH (14:30)
[2018-06-11] MEDS ORDERED: Sulfamethoxazole/Trimethoprim 400/80 MG Tablet PO SCH (14:30)
[2018-06-11] MEDS ORDERED: Folic Acid 1 MG Tablet PO SCH (14:30)
[2018-06-11 14:48] LABS: INR 1.9 Ratio; Prothrombin Time 19.4 sec (9.8-11.6)
[2018-06-11 14:48] LABS: Bacteria,Urine Few /hpf; Bilirubin,Urine Negative (Negative); Clarity,Urine Cloudy (Clear); Color,Urine Yellow (Yellw/Straw); Glucose,Urine (UA) Negative (Negative); Leukocyte Esterase,Urine Small (Negative); Mucus,Urine Few /lpf (Occasional); Nitrite,Urine Negative (Negative); Specific Gravity,Urine 1.016 (1.002-1.035); Squamous Epithelial Cell,Urine 9 /hpf (0-5); Trichomonas,Urine Rare /hpf
--- NOTE | 2018-06-11 16:18 | MB ---
cc: Shama Triplett MD DATE: 06/11/2018 REASON FOR CONSULTATION: History of renal transplant came with right knee pain. HISTORY OF PRESENT ILLNESS: This is a 28-year-old female with past medical history of hypertension, end-stage renal disease, history of renal transplant done second time, history of pulmonary embolism, history of recent transplant rejection, came to the hospital complaining of right knee pain. The patient has the first kidney transplant done, which worked for 7-1/2 years and the second one was done in [address] [facility] and she has been following with uke operator there. According to the patient, her creatinine went up in April to more than 2.6 and she had a kidney biopsy done and she was told that she has rejection, and she was treated with plasmapheresis and also rituximab and her medication antirejection medications were adjusted. The patient again had a creatinine increase to 2.6 about 2 weeks ago when she was in the hospital. She was given IV fluids and her creatinine improved. She was found to be allergic to rituximab and it was stopped; it was causing swelling in the neck, and she is now back on prednisone. The patient started having this pain in the right knee, which was gradually getting worse along with the swelling in the knee, and she decided to come to the hospital. She also has some dysuria. There was no history of fever. No nausea or vomiting. 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 PAST SURGICAL HISTORY: History of parathyroidectomy, renal transplant done twice. REVIEW OF SYSTEMS: The patient denies any history of fever. No headache, dizziness or blurring of vision. No nausea, vomiting. No abdominal pain. She has mild dysuria. There is no hematuria. Has pain in the right knee, also some in the left, but more than the right, associated with increased swelling of the knee. There is no history of trauma. SOCIAL HISTORY: The patient lives with her mother. Her grandmother has history of renal disease. There is no history of smoking or alcoholism. FAMILY HISTORY: Positive for renal disease in grandmother on her father's side, and her mother has diabetes. ALLERGIES: LOSARTAN, VANCOMYCIN AND ENALAPRIL. MEDICATIONS: Currently she is on the following medications: 1. Tylenol. 2. Milk of magnesia. 3. Rocaltrol 0.25 mcg daily. 4. Dulcolax as needed. 5. Dilaudid as needed. 6. CellCept 500 mg t.i.d. 7. Prednisone 5 mg daily. 8. Lyrica 100 mg b.i.d. 9. Roselyn-Colace 1 tablet b.i.d. 10. Senokot 17.2 mg daily. PHYSICAL EXAMINATION: GENERAL: The patient is awake, alert. She is not in acute distress. VITAL SIGNS: Blood pressure is 141/103. Temperature is 98.3. Oxygen saturation 98% on room air. HEENT: Pupils are mid constricted. Nonicteric sclerae. Conjunctivae pale. NECK: Supple. JVD is not elevated. LUNGS: The patient has bilateral good air entry with occasional wheezing. HEART: S1, S2. Regular rate and rhythm. ABDOMEN: Soft and lax. There is no tenderness. Bowel sounds positive. EXTREMITIES: She has pain in both knees, more than the right, and associated with the swelling in the right knee. There is no history of trauma. Mild edema in both legs. LABORATORY DATA: WBC count is 13.7, hemoglobin 9.7, platelet count of 220, neutrophils 87.5. INR is 2.8. Sodium 138, potassium 4.0, chloride 101, bicarbonate 26.6, BUN 29, creatinine 1.6, glucose 123. Hemoglobin A1c 6.4, calcium is 7.7, AST is 13, ALT is 23, albumin is 3.1. Prograf level 7.3. IMAGING STUDIES: The patient had an x-ray of the knee done, which shows that she has osteochondritis without any displacement of the fragment. The left knee was normal. ASSESSMENT AND PLAN: 1. Right knee osteoarthritis. 2. Chronic kidney disease with history of renal transplant and recent rejection. 3. Hypertension. 4. Mild anemia. The patient has an improvement in her creatinine, and 1.6-1.7 seems to be her baseline now. According to patient, she had a second kidney biopsy done last week and she was told that she has a 40% scarring. She is currently on CellCept, prednisone and Envarsus, she is taking 3 of these day. She needs to continue this. Her Prograf level is adequate. From a nephrology standpoint, she can be discharged, and she needs to followup with her uke operator at [place]. I discussed with the patient to keep herself well hydrated. Thank you for the consultation. I will follow the patient and if she stays in the hospital. MD ZANA Sierra/lizabeth , 01:22 PM , 01:35 PM
[2018-06-11 16:42] VITALS: BP 139/91; PULSE 99; RESP 14; TEMP 98.7
[2018-06-11] MEDS ORDERED: INSULIN ASPART SQ SCH (18:00)
[2018-06-11] MEDS ORDERED: hydrALAZINE 25 MG Tablet PO SCH (18:00)
[2018-06-11] MEDS ORDERED: Labetalol 200 MG Tablet PO SCH (18:00)
== END 2018-06-11 18:26 | disposition home or self-care (01) ==
LOC: NEPD 18:36 → NEDA 18:36 → NEPFCDU 06-11 03:49
PROVIDERS: ADMIT Hospitalist; ATTEND Hospitalist
DX: M93.261 Osteochondritis dissecans, right knee; N18.6 End stage renal disease; I12.0 Hypertensive chronic kidney disease with stage 5 chronic kidney disease or end stage renal disease; Z94.0 Kidney transplant status; R30.0 Dysuria; E21.3 Hyperparathyroidism, unspecified; M25.562 Pain in left knee; Z87.448 Personal history of other diseases of urinary system; Z79.899 Other long term (current) drug therapy; M25.572 Pain in left ankle and joints of left foot; D64.9 Anemia, unspecified; Z79.01 Long term (current) use of anticoagulants; R26.81 Unsteadiness on feet; M17.11 Unilateral primary osteoarthritis, right knee; Z86.711 Personal history of pulmonary embolism; M25.561 Pain in right knee; D72.829 Elevated white blood cell count, unspecified; Z79.4 Long term (current) use of insulin; E11.22 Type 2 diabetes mellitus with diabetic chronic kidney disease; M25.571 Pain in right ankle and joints of right foot; Z79.52 Long term (current) use of systemic steroids; B95.7 Other staphylococcus as the cause of diseases classified elsewhere